=== PATIENT | female | born 1950 | race Caucasian/White ===

== ENCOUNTER → 2016-12-05 15:11 | Outpatient (RCR) | payer MEDICARE, OTHER, SELFPAY | LOC: PULREHAB 10-26 10:19 | PROVIDERS: Visit Provider Nurse Practitioner Family | DX: J44.9 Chronic obstructive pulmonary disease, unspecified (principal) | CPT/HCPCS: G0424 ==

== ENCOUNTER → 2017-03-13 08:57 | Outpatient (POV) | payer MEDICARE, OTHER, SELFPAY | PROVIDERS: Family Provider Internal Medicine Adolescent Medicine; Visit Provider Internal Medicine | DX: Z00.00 Encounter for general adult medical examination without abnormal findings (principal) ==

== ENCOUNTER → 2017-03-15 14:47 | Outpatient (CLI) | payer MEDICARE, OTHER, SELFPAY ==
--- NOTE | 2017-03-15 14:52 | CA_ITS ---
PROCEDURE: 2-D M-mode and color Doppler study INDICATIONS FOR THE TEST: Chest pain COPDX Heart Murmur Tobacco SmokingEX Palpitations Fatigue Syncope Edema Hypertension Diabetes Mellitus Rheumatic Fever SOBXDOEXObesityXHyperlipidemia Family History HD Additional History RESP FAILURE TDS SECONDARY TO COPD AND BODY HABITUS PATIENT INFORMATION HEIGHT: 68 WEIGHT:176 GENDER: Female B/P:140/61 2-D/M-MODE INTERPRETATION: 2-D MEASUREMENTS OBSERVED VALUES IN CMS Right Ventricular Dimension (RVDd) 2.3 Interventricular Septum (Thickness)(IVsd) .8 Left Ventricular Internal Dimensions(LVIDd) 4.4 Left Ventricular Posterior Wall (Thickness)(LVPWd) .7 Aortic Root 3.2 Aortic Cusp Separation 1.0 Left Atrial Dimensions (LAD) 2.3 2D 1. Left atrium is qualitatively mildly enlarged, left ventricle is normal size, there is no concentric left ventricular hypertrophy, visually estimated ejection fraction 55% with no obvious regional wall motion abnormality. 2. The right atrium and right ventricle are qualitatively mildly enlarged with normal contractility. 3. The aortic valve is minimally thickened and fibrosed. 4. The mitral and tricuspid valve leaflets are minimally thickened. 5. The pulmonic valve is poorly visualized. 6. No significant pericardial effusion noted. DOPPLER INTERROGATION: Doppler interrogation of the aortic, mitral and tricuspid valvular presence of mild mitral and tricuspid regurgitation, tricuspid regurgitant jet velocity is insufficient for calculation of the right ventricular systolic pressure, grade 1 diastolic dysfunction seen without tissue Doppler evidence of raised left atrial pressure. CONCLUSION: 1. Mildly enlarged left atrium, normal left ventricular size, visually estimated to fraction 55% with no obvious regional wall motion abnormality, grade 1 diastolic dysfunction seen without tissue Doppler evidence of raised left atrial pressure. 2. Mildly enlarged right ventricle with normal contractility. 3. Mild mitral and tricuspid regurgitation. 4. No significant pericardial effusion noted.
== END ==
PROVIDERS: Family Provider Internal Medicine Adolescent Medicine; PCP Internal Medicine Adolescent Medicine; Visit Provider Internal Medicine
DX: J96.10 Chronic respiratory failure, unspecified whether with hypoxia or hypercapnia (principal); R60.0 Localized edema; R09.89 Other specified symptoms and signs involving the circulatory and respiratory systems
CPT/HCPCS: 93306

== ENCOUNTER → 2017-08-03 09:12 | Outpatient (CLI) | payer MEDICARE, OTHER, SELFPAY ==
--- NOTE | 2017-08-03 09:16 | MM_ITS ---
MM Dig screening mamm BI w/CAD CAD Screening COMPARISON: Digital mammograms 07/08/2008 INDICATION: There is a history of breast cancer in patient's mother and maternal cousin. TECHNIQUE: Standard CC and MLO images were obtained. R2 CAD reviewed. FINDINGS: The breasts are composed primarily of fat with minimal scattered fibroglandular densities in each breast. There is a mole marker right breast. There is no suspicious lesion and no suspicious microcalcifications. There are stable asymmetric density central portion left breast. IMPRESSION: Digoxin breast parenchyma with no suspicious lesion seen BI-RADS Category: 2 Benign Finding(s) RECOMMENDED FOLLOW-UP: 1YR - 1 YEAR FOLLOW-UP (A letter has been sent to the patient regarding results of the study.)
== END ==
PROVIDERS: Family Provider Internal Medicine Adolescent Medicine; PCP Internal Medicine Adolescent Medicine; Visit Provider Internal Medicine Adolescent Medicine
DX: Z12.31 Encounter for screening mammogram for malignant neoplasm of breast (principal)
CPT/HCPCS: 77067

== ENCOUNTER 2017-08-03 09:45 | Outpatient (RCR) | payer MEDICARE, OTHER, SELFPAY ==
--- NOTE | 2017-08-03 10:21 | HMH.PTOPEV ---
PT Outpatient Evaluation Rehab PT Outpatient Evaluation Start: 08/03/17 10:09 Freq: Status: Active Protocol: Document 08/03/17 10:09 CHRISSY (Rec: 08/03/17 10:21 CHRISSY [id number]) Electronically Signed By French Yoon, PT 08/03/17 10:09 Outpatient Therapy Subjective History Subjective History Pt reports h/o chronic mid- back pain for ~10 yrs, with exacerbation of s/s over the lst 12-18 months. Pt reports ' all my pain is caused by the weight of my breasts'. 'When i change positions to take the weight of my breasts off my back, the pain is immediately cut in half.' Pt reports fibromylagia of the shoulders, and COPD, which also further complicates breathing with the aforementioned breast size issues. Pt reports no radicular s/s only localized mid-back and lower cervical and upper lumbar back pain. Chief Complaint Pain Stiff Clicks Weakness Symptom Type Ache Throb Sharp Dull Stabbing Symptoms Relieved By Rest/Positioning Symptoms Aggravated By Sitting Standing Bending/Stooping Physical Activity Walking Lifting Prior Functional Limitations Reaching Lifting Housework Standing Sitting Current Functional Limitations Reaching Lifting Housework Standing Sitting Bending/Stooping Symptom Description Constant but Variable Level of pain today (0-10) 10 Pain scale - at its best (0-10) 4 Pain scale - at its worst (0-10) 10 Cervical Eval Palpation Cervical Muscles R Cervical Paraspinal L Cervical Paraspinal R CT Junction
== END 2017-08-03 09:46 | disposition home or self-care (01) ==
LOC: PT 09:45
PROVIDERS: Family Provider Internal Medicine Adolescent Medicine; PCP Internal Medicine Adolescent Medicine; Visit Provider Internal Medicine Adolescent Medicine
DX: M54.6 Pain in thoracic spine (principal); M40.209 Unspecified kyphosis, site unspecified
CPT/HCPCS: 97010; 97014; 97035; 97163; G0283

== ENCOUNTER → 2017-08-30 12:49 | Outpatient (CLI) | payer MEDICARE, OTHER, SELFPAY ==
[2017-08-30 13:19] VITALS: PULSE 69
[2017-08-30 13:45] VITALS: BP 116/80; PULSE 75; RESP 16; O2SAT 92
[2017-08-30 14:00] VITALS: BP 113/55; PULSE 63; RESP 24; O2SAT 92
== END ==
PROVIDERS: Family Provider Internal Medicine Adolescent Medicine; PCP Internal Medicine Adolescent Medicine; Visit Provider Internal Medicine
DX: R06.02 Shortness of breath (principal); J44.9 Chronic obstructive pulmonary disease, unspecified
CPT/HCPCS: 94060; 94618; 94640

== ENCOUNTER → 2017-09-03 09:08 | Outpatient (CLI) | payer MEDICARE, OTHER, SELFPAY ==
--- NOTE | 2017-09-03 09:09 | CT_ITS ---
CT abdomen pelvis wo/w con CLINICAL INDICATION: Sigmoid stricture, possible mass ITS.REASON: stricture sigmoid ORDERING PHYSICIAN: Rigo Rao MD PATIENT AGE: 67 years COMPARISON: 03/22/2015 TECHNIQUE: Axial images obtained without and with contrast with sagittal and coronal reformats. All CT scans at the facility use one or more dose reduction, viz: automated exposure control; ma/kV adjustment per patient size (including targeted exams where dose is matched to indication; i.e. head); or iterative reconstruction technique. PROCEDURE: Oral Contrast: 75 mL's of Isovue-370 IV Contrast: Redicat. FINDINGS: The liver, spleen, adrenal glands, pancreas, and kidneys have an unremarkable appearance. No renal or ureteral calculi evident. There is good oral contrast opacification of the large bowel. No evidence of appendicitis or diverticulitis. No intestinal obstruction or free air. There is diverticulosis of the descending and sigmoid colon. There is thickening of the sigmoid colon in the left lower quadrant in the area of the stricture that was seen on the recent barium enema. This did have a similar appearance on 03/22/2015. No obvious concentric mass or apple core lesion evident. No pelvic adenopathy. Small cystic structures present in the left pelvic area measuring 2.8 x 1.6 cm suggesting small left ovarian cyst. There are postsurgical changes of the anterior abdominal wall with some thinning of the abdominal wall and minimal eventration but no jamilah hernia. Minimal ectasia of the lower abdominal aorta. Degenerative disc disease lumbar spine IMPRESSION: Colonic diverticulosis with an area of mucosal thickening of the sigmoid colon measuring 4.6 cm in length corresponding to the area of stricture seen on the barium enema. This had a similar appearance on 03/22/2015 and may represent an area of chronic colitis/inflammation. Neoplasm is not totally excluded.
[2017-09-03 10:15] LABS: Blood Urea Nitrogen 13 mg/dL (7-18); Creatinine,Serum 0.65 mg/dL (0.55-1.02); Estimated Glomerular Filt Rate 91 ml/min (>60); GFR (African American) 111 ML/MIN (>60)
--- NOTE | 2017-09-03 10:35 | CT_ITS ---
CT chest wo con HISTORY: Follow-up lung nodule, sigmoid stricture ITS.REASON: LUNG NODULE ORDERING PHYSICIAN: Rigo Rao MD PATIENT AGE: 67 years COMPARISON: 02/14/2017 Technique: Axial images obtained. Sagittal and coronal reformatted images are also generated and reviewed. All CT scans at the facility use one or more dose reduction, viz: automated exposure control; ma/kV adjustment per patient size (including targeted exams where dose is matched to indication; i.e. head); or iterative reconstruction technique. FINDINGS: No mediastinal or hilar mass or adenopathy. There are coronary artery calcifications. Normal heart size without evidence of pericardial effusion. There are centrilobular emphysematous changes with mild scarring in the apices. Small parenchymal opacity is present in the inferior aspect of the right upper lobe with central lucency which is stable. Calcified granuloma in the right middle lobe. Calcified nodes present in the right hilum. There is an 8 x 6 mm nodule in the right upper lobe posteriorly. The margins are irregular nodule does not appear significantly changed from 02/14/2017 but is slightly larger than when compared to the date 10-05-16- exam. There are chronic changes in the right middle lobe and lingula. No lobar consolidation or collapse. No effusions. IMPRESSION: 1. Stable 8 mm nodule in the right upper lobe compared to 02/14/2017. The nodule is slightly larger than when compared 10/05/2016. Therefore, continued follow-up is recommended. 2. Centrilobular emphysema with old granulomatous disease. 3. Coronary artery disease
[2017-09-04 10:52] LABS: CEA 3.9 ng/mL (0.0-4.7)
== END ==
PROVIDERS: Family Provider Internal Medicine Adolescent Medicine; PCP Internal Medicine Adolescent Medicine; Visit Provider Surgery
DX: Z85.41 Personal history of malignant neoplasm of cervix uteri (principal); K56.699 Other intestinal obstruction unspecified as to partial versus complete obstruction; R91.1 Solitary pulmonary nodule; Z08 Encounter for follow-up examination after completed treatment for malignant neoplasm
CPT/HCPCS: 36415; 71250; 74170; 74178; 82378; 82565; 84520; Q9967

== ENCOUNTER → 2017-09-11 09:09 | Outpatient (POV) | payer MEDICARE, OTHER, SELFPAY | PROVIDERS: Family Provider Internal Medicine Adolescent Medicine; PCP Internal Medicine Adolescent Medicine; Visit Provider Internal Medicine | DX: Z00.00 Encounter for general adult medical examination without abnormal findings (principal) ==

== ENCOUNTER → 2017-10-01 14:36 | Outpatient (POV) | payer MEDICARE, OTHER, SELFPAY | PROVIDERS: Family Provider Internal Medicine Adolescent Medicine; PCP Internal Medicine Adolescent Medicine; Visit Provider Nurse Practitioner Acute Care | DX: Z00.00 Encounter for general adult medical examination without abnormal findings (principal) ==

== ENCOUNTER → 2017-10-17 14:30 | Outpatient (POV) | payer MEDICARE, OTHER, SELFPAY | PROVIDERS: Family Provider Internal Medicine Adolescent Medicine; PCP Internal Medicine Adolescent Medicine | DX: Z00.00 Encounter for general adult medical examination without abnormal findings (principal) ==

== ENCOUNTER → 2018-01-08 09:48 | Outpatient (POV) | payer MEDICARE, OTHER, SELFPAY | PROVIDERS: Visit Provider Dermatology | DX: Z00.00 Encounter for general adult medical examination without abnormal findings (principal) ==

== ENCOUNTER → 2018-01-15 15:18 | Outpatient (CLI) | payer MEDICARE, OTHER, SELFPAY ==
[2018-01-15 17:06] LABS: Alanine Aminotransferase 23 U/L (12-78); Albumin Level 3.3 gm/dL (3.4-5.0); Alkaline Phosphatase 58 U/L (46-116); Anion Gap 11.3 mEq/L (5-15); Aspartate Amino Transferase 19 U/L (15-37); Bilirubin,Total 0.5 mg/dL (0.2-1.0); Blood Urea Nitrogen 11 mg/dL (7-18); Calcium 8.9 mg/dL (8.5-10.1); Carbon Dioxide 30 mmol/L (21.0-32.0); Chloride 103 mmol/L (98-107); Creatine Kinase 101 U/L (26-192); Creatinine,Serum 0.69 mg/dL (0.55-1.02); Estimated Glomerular Filt Rate 85 ml/min (>60); GFR (African American) 103 ML/MIN (>60); Globulin 3.3 gm/dl (1.3-3.2); Glucose 89 mg/dL (74-106); Potassium 4.3 mmoL/L (3.5-5.1); Sodium 140 mmol/L (136-145); T4 (Thyroxine) 11.1 ug/dl (4.7-13.3); Thyroid Stimulating Hormone 0.08 uIU/ml (0.358-3.740); Total Protein,Serum 6.6 gm/dL (6.4-8.2); Triiodothryronine (T3) Uptake 35 % (31-39)
== END ==
PROVIDERS: Visit Provider Specialist
DX: R25.1 Tremor, unspecified (principal); R25.2 Cramp and spasm
CPT/HCPCS: 36415; 80053; 82085; 82550; 83735; 84436; 84443; 84479

== ENCOUNTER → 2018-01-18 12:54 | Outpatient (CLI) | payer MEDICARE, OTHER, SELFPAY ==
--- NOTE | 2018-01-18 12:56 | MR_ITS ---
MR head/brain wo con HISTORY: Tremors, unsteady gait ITS.REASON: gait disturbance, memory loss, tremor ORDERING PHYSICIAN: Viji Anthony MD PATIENT AGE: 68 years Comparison: None TECHNIQUE: Standard multiplanar multiecho sequences are performed without contrast. FINDINGS: No midline shift, mass effect, intracranial hemorrhage, or hydrocephalus is evident. No evidence of acute infarct. Scattered periventricular and subcortical T2 white matter hyperintensities are present consistent with ischemic gliotic change from microvascular disease. The cerebellopontine angles, cerebellum, and brainstem are unremarkable. There is a minimal amount fluid in left mastoid sinus. No sinus air-fluid levels. The pituitary, optic chiasm, and craniocervical junction are unremarkable. IMPRESSION: 1. No acute intracranial findings. 2. Minimal fluid in left mastoid 3. Nonspecific T2 white matter hyperintensities consistent with ischemic gliotic change from microvascular disease
== END ==
PROVIDERS: PCP Internal Medicine Adolescent Medicine; Visit Provider Specialist
DX: G47.33 Obstructive sleep apnea (adult) (pediatric) (principal); R25.1 Tremor, unspecified; R25.2 Cramp and spasm; R26.9 Unspecified abnormalities of gait and mobility; R41.3 Other amnesia
CPT/HCPCS: 70551

== ENCOUNTER → 2018-02-18 13:32 | Outpatient (POV) | payer MEDICARE, OTHER, SELFPAY | PROVIDERS: Visit Provider Specialist | DX: R25.2 Cramp and spasm (principal); R25.1 Tremor, unspecified | CPT/HCPCS: 95886; 95910 ==

== ENCOUNTER → 2018-02-20 13:18 | Outpatient (POV) | payer MEDICARE, OTHER, SELFPAY | DX: Z00.00 Encounter for general adult medical examination without abnormal findings (principal) ==

== ENCOUNTER → 2018-03-12 16:13 | Outpatient (POV) | payer MEDICARE, OTHER, SELFPAY | PROVIDERS: Visit Provider Internal Medicine | DX: Z00.00 Encounter for general adult medical examination without abnormal findings (principal) ==

== ENCOUNTER → 2018-05-22 10:41 | Outpatient (CLI) | payer MEDICARE, OTHER, SELFPAY ==
--- NOTE | 2018-05-22 10:49 | CT_ITS ---
CT abdomen wo/w con CLINICAL INDICATION: Hernia, pain in the lower umbilical area with swelling ITS.REASON: HERNIA ORDERING PHYSICIAN: Fernando Fernandez MD PATIENT AGE: 68 years COMPARISON: 09/03/2017 TECHNIQUE: Axial images are performed without and with contrast. Axial images obtained with sagittal and coronal reformats. All CT scans at the facility use one or more dose reduction, viz: automated exposure control, ma/kV adjustment per patient size (including targeted exams where dose is matched to indication, i.e. head), or iterative reconstruction technique. PROCEDURE: Oral Contrast: Redicat IV Contrast: 75 mL's Optiray 350. FINDINGS: Coronary artery calcifications are present. There is a calcified granuloma in the left lower lobe.. An 11 mm noncalcified nodule present in the left lung base anteromedially and could be due to a small lymph node in the pericardial region slightly more prominent when compared to the previous exam. The liver, spleen, and left adrenal gland and pancreas have an unremarkable appearance. Prior cholecystectomy. There is a isodense nodule in the right adrenal gland at 12 mm consistent with an adenoma measuring -7 Hounsfield units. No renal or ureteral calculi are evident. No renal mass. There is mild dilatation of the infrarenal abdominal aorta measuring up to 2.4 cm. The appendix is not clearly delineated. There is a given history of prior appendectomy. There is diffuse colonic diverticulosis of the descending and sigmoid colon with mild diffuse thickening of the descending and sigmoid colon suggesting colitis. There is mild thickening and enhancement of the urinary bladder also suggesting cystitis. No pelvic mass or abnormal fluid collection is evident. There are surgical clips in the pelvis. There is diastases of the central abdominal wall but no jamilah herniation. No acute bony findings. IMPRESSION: 1. Mild diffuse thickening of the descending and proximal to mid sigmoid colon consistent with colitis. There is diverticulosis as well but no focal areas of diverticulitis demonstrated 2. Mild thickening and enhancement of the wall the urinary bladder consistent with cystitis. 3. Diastases of the abdominal wall but no jamilah herniation and no significant change from 09/03/2017 regarding this finding 4. Mildly prominent left pericardial lymph node slightly increased in size nonspecific with other nonacute findings as described above
== END ==
PROVIDERS: PCP Internal Medicine Adolescent Medicine; Visit Provider Internal Medicine Adolescent Medicine
DX: K46.9 Unspecified abdominal hernia without obstruction or gangrene (principal)
CPT/HCPCS: 74170; 74178; Q9967

== ENCOUNTER → 2018-08-12 12:57 | Outpatient (CLI) | payer MEDICARE, OTHER, SELFPAY ==
--- NOTE | 2018-08-12 13:00 | CT_ITS ---
CT chest wo con HISTORY: Follow-up pulmonary nodule ITS.REASON: PULMONARY NODULE ORDERING PHYSICIAN: Brian Gil MD PATIENT AGE: 68 years COMPARISON: 09/03/2017, 02/14/2017 Technique: Axial images obtained. Sagittal, and coronal reformatted images are also generated and reviewed. All CT scans at the facility use one or more dose reduction, viz: automated exposure control, ma/kV adjustment per patient size (including targeted exams where dose is matched to indication, i.e. head), or iterative reconstruction technique. FINDINGS: No mediastinal or hilar adenopathy is evident. There are some small mediastinal lymph nodes present stable. Coronary artery calcifications are present. No evidence of pericardial effusion. There are centrilobular emphysematous changes with scattered areas of fibrosis. The previously noted stable nodule in the right upper lobe has increased in size since the most recent exam measuring 1.4 x 1.3 cm previously measuring 7 mm. The margins are spiculated. This is suspicious for neoplasm. This is not safely amenable to percutaneous CT directed biopsy. This lesion is in the posterior segment of the right upper lobe and may be accessible for biopsy by bronchoscopy. There is calcified granuloma in the left lower lobe. No effusions. No infiltrates. No other significant abnormalities are apparent.. Upper abdominal images are unremarkable. No acute bony anomalies. No bony destructive process evident. IMPRESSION: 1. Enlarging right upper lobe nodule suspicious for malignancy 2. Centrilobular emphysema. 3. Coronary artery disease
== END ==
PROVIDERS: PCP Internal Medicine Adolescent Medicine; Visit Provider Internal Medicine
DX: R91.1 Solitary pulmonary nodule (principal)
CPT/HCPCS: 71250

== ENCOUNTER → 2018-10-30 12:36 | Outpatient (POV) | payer MEDICARE, OTHER, SELFPAY | DX: Z00.00 Encounter for general adult medical examination without abnormal findings (principal) ==

== ENCOUNTER → 2018-11-19 12:59 | Outpatient (CLI) | payer MEDICARE, OTHER, SELFPAY ==
[2018-11-19 14:15] VITALS: PULSE 60; PULSE 64
--- NOTE | 2018-11-19 14:55 | CT_ITS ---
PROCEDURE: CT CHEST WO CON CLINICAL INDICATION: PULMONARY NODULE Follow-up pulmonary nodule COMPARISON: CHESTWO CT chest wo con from 09/03/[address] chest wo con from 08/12/2018 TECHNIQUE: Axial images obtained with sagittal and coronal reformats. All CT scans at the facility use one or more dose reduction, viz: automated exposure control, ma/kV adjustment per patient size (including targeted exams where dose is matched to indication, i.e. head), or iterative reconstruction technique. FINDINGS: There is extensive coronary artery calcification. No mediastinal or hilar mass or adenopathy. Are a few mediastinal lymph nodes unchanged. There is COPD with centrilobular emphysema with hyperinflation. There is a spiculated mass in the posterior aspect of the right upper lobe once again noted. The mass measures 1.7 x 1.6 cm and is suspicious for malignancy slightly larger compared to the previous exam previously 1.4 x 1.4 cm. The There are few scattered calcified granulomas. No effusions or infiltrates. There is some nodularity noted in the left lung base anteriorly which may be due to some lingular scarring not significantly changed. A small nodes within the pericardial fat is also consideration. No acute bony anomaly. Upper abdominal images show unremarkable adrenal glands. The visualized portion of the liver is unremarkable. The inferior aspect of the liver is not imaged. IMPRESSION: 1. Spiculated right upper lobe mass is once again noted and does appear slightly larger compatible with lung cancer. 2. COPD/centrilobular emphysema 3. Coronary artery disease Dictated by: Gianluca Self MD 11/22/2018 05:11 Electronically signed by Gianluca Self MD in [place] 11/22/2018 05:11
== END ==
PROVIDERS: PCP Internal Medicine Adolescent Medicine; Visit Provider Internal Medicine
DX: R91.1 Solitary pulmonary nodule (principal); J44.9 Chronic obstructive pulmonary disease, unspecified; J96.10 Chronic respiratory failure, unspecified whether with hypoxia or hypercapnia
CPT/HCPCS: 71250; 94060; 94640; 94727; 94729

== ENCOUNTER → 2018-12-10 15:43 | Outpatient (POV) | payer MEDICARE, OTHER, SELFPAY | PROVIDERS: Visit Provider Internal Medicine | DX: Z00.00 Encounter for general adult medical examination without abnormal findings (principal) ==

== ENCOUNTER → 2018-12-18 12:42 | Outpatient (CLI) | payer MEDICARE, OTHER, SELFPAY ==
--- NOTE | 2018-12-18 13:02 | CA_ITS ---
APPROVED REPORT Left Lower Extremity Venous Study for DVT. Stock Broker: Amarilis Martin RVT Indications Lower Extremity Pain: Lower Extremity Edema: Left LLE swelling x several yrs. Vein Imaging CFV (L): compressive, spontaneous, phasic, augmentation FEM (L): compressive, spontaneous, phasic, augmentation POP (L): compressive, spontaneous, phasic, augmentation PTV (L): Compressible GSV (L): Compressible Peroneals (L):Compressible GAS (L): Compressible Findings Study is negative for DVT of the left lower extremity. Study is negative for SVT of the left lower extremity. Conclusion Study is negative for DVT of the left lower extremity. Study is negative for SVT of the left lower extremity. Electronically signed by : Gianluca Self MD 12/19/2018 19:08:38
[2018-12-18 15:03] LABS: D-Dimer 232 ng/mL (0-400)
== END ==
PROVIDERS: PCP Internal Medicine Adolescent Medicine; Visit Provider Internal Medicine
DX: R60.0 Localized edema (principal)
CPT/HCPCS: 36415; 85378; 93971

== ENCOUNTER → 2019-01-01 14:25 | Outpatient (CLI) | payer MEDICARE, OTHER, SELFPAY ==
[2019-01-01 14:27] LABS: Microscopic, Urine URINE MICROSCOPIC (MICROSCOPIC)
[2019-01-01 14:47] LABS: Basophils # 0.1 K/mm3 (0-0.2); Basophils % 0.8 % (0.1-2.0); Eosinophils # 0.4 K/mm3 (0.0-0.4); Eosinophils % 5.9 % (0.1-12.0); Hematocrit 40.3 % (37.0-47.0); Hemoglobin 12.8 g/dL (12.2-16.2); Lymphocytes # 2.3 K/mm3 (0.7-4.5); Lymphocytes % 32.8 % (10-50); Mean Corpuscular HGB Conc 31.7 g/dL (31.8-35.4); Mean Platelet Volume 8.2 fl (7.4-10.4); Monocytes # 0.3 K/mm3 (0.1-1.0); Monocytes % 4.7 % (1.7-9.3); Neutrophils # 3.9 K/mm3 (1.8-7.8); Neutrophils % 55.9 % (37.0-80.0); Platelet Count 211 K/mm3 (142-424); Red Blood Count 4.11 M/mm3 (4.20-5.40); Red Cell Distribution Width 13.7 % (11.5-17.5)
[2019-01-01 15:16] LABS: Appearance,Urine CLEAR (Clear); Bilirubin,Urine Negative (Negative); Blood, Urine 1+ (Negative); Color,Urine YELLOW (Yellow); Glucose,Urine (UA) Negative (Negative); Ketones,Urine Negative (Negative); Leukocyte Esterase,Urine Negative (Negative); Nitrate,Urine Negative (Negative); PH,Urine 5.5 (5.0-8.5); Protein,Urine Negative (Negative); Specific Gravity, Urine 1.025 (1.005-1.030); Urobilinogen,Urine 0.2 EU/dl (0.2)
[2019-01-01 15:21] LABS: Bacteria,Urine Trace /lpf; RBC,Urine Occasional #/hpf (0-3); Squamous Epithelial Cell,Urine Occasional #/hpf (0-5); WBC,Urine Occasional #/hpf (0-3)
[2019-01-01 16:25] LABS: Alanine Aminotransferase 23 U/L (12-78); Albumin Level 3.4 gm/dL (3.4-5.0); Alkaline Phosphatase 66 U/L (46-116); Anion Gap 9.2 mEq/L (5-15); Aspartate Amino Transferase 20 U/L (15-37); Bilirubin,Total 0.5 mg/dL (0.2-1.0); Blood Urea Nitrogen 12 mg/dL (7-18); Calcium 8.7 mg/dL (8.5-10.1); Carbon Dioxide 30 mmol/L (21.0-32.0); Chloride 104 mmol/L (98-107); Creatinine,Serum 0.73 mg/dL (0.55-1.02); Estimated Glomerular Filt Rate 80 ml/min (>60); GFR (African American) 97 ML/MIN (>60); Globulin 3.3 gm/dl (1.3-3.2); Glucose 87 mg/dL (74-106); Potassium 4.2 mmoL/L (3.5-5.1); Sodium 139 mmol/L (136-145); Total Protein,Serum 6.7 gm/dL (6.4-8.2)
== END ==
LOC: LAB.DROPOF 14:26 → LAB 14:27
PROVIDERS: Visit Provider Surgery
DX: R10.9 Unspecified abdominal pain (principal)
CPT/HCPCS: 36415; 80053; 81001; 85025

== ENCOUNTER → 2019-01-06 08:00 | Outpatient (CLI) | payer MEDICARE, OTHER, SELFPAY ==
--- NOTE | 2019-01-06 08:02 | US_ITS ---
PROCEDURE: US ABDOMEN COMPLETE CLINICAL INDICATION: focal abdominal pain COMPARISON: ABDPELWW CT abdomen pelvis wo/w con from 05/22/2018 CT CHEST WO CON from 11/19/2018 FINDINGS: PANCREAS: Poorly demonstrated due to body habitus and overlying bowel gas. LIVER: No focal liver lesions demonstrated. Homogeneous echogenicity. No intrahepatic biliary ductal dilatation evident. There is appropriate direction of blood flow within a non dilated portal vein RIGHT KIDNEY: Unremarkable. Normal size and echogenicity. No hydronephrosis LEFT KIDNEY: Unremarkable. Normal size and echogenicity. No hydronephrosis GALLBLADDER: Status post cholecystectomy. Common bile duct is normal at 3 mm. AORTA: Minimal ectasia of the mid abdominal aorta at 2.4 cm. SPLEEN: Not well delineated. Grossly unremarkable ASCITES: None demonstrated. IMPRESSION: 1. Somewhat limited study with poor visualization of the pancreas and spleen. 2. Mild ectasia of the mid abdominal aorta at 2 cm. 3. Status post cholecystectomy 4. No acute finding Dictated by: Gianluca Self MD 01/06/2019 17:07 Electronically signed by Gianluca Self MD in [place] 01/06/2019 17:07
== END ==
PROVIDERS: PCP Internal Medicine Adolescent Medicine; Visit Provider Surgery
DX: R10.9 Unspecified abdominal pain (principal)
CPT/HCPCS: 76700

== ENCOUNTER → 2019-01-16 10:01 | Outpatient (CLI) | payer MEDICARE, OTHER, SELFPAY ==
--- NOTE | 2019-01-16 10:03 | MM_ITS ---
PROCEDURE: MM DIG SCREENING MAMM BI W/CAD CLINICAL INDICATION: screening There is a history of breast cancer patient's mother and maternal cousin. There have been previous biopsies on each breast for benign disease. COMPARISON: SCREENING MAMMO DIGITAL W/ CAD from 07/08/2008 DIAG MAMMO UNI-LAT W/O CAD from 09/02/2008 [facility] MM Dig screening mamm BI w/CAD from 08/03/2017 TECHNIQUE: Standard CC and MLO images were obtained. R2 CAD reviewed. FINDINGS: Scattered fibroglandular densities are seen throughout both breasts. There is a possible area of architectural distortion or increased glandular elements central portion left breast representing a change from the previous year's exam. Would recommend patient return for spot compression views and ultrasound may be necessary as well. There are no suspicious microcalcifications. IMPRESSION: Fibrofatty parenchyma with possible developing glandular densities versus architectural distortion left breast BI-RAD Category: 0 Need Additional Imaging Evaluation FOLLOW-UP: IMM Immediate Follow-up Recommended (A letter has been sent to the patient regarding results of the study.) Dictated by: Dr. Balwinder Schulz MD 01/18/2019 13:[address] Balwinder Schulz MD in [place] 01/18/2019 13:46
== END ==
PROVIDERS: Visit Provider Internal Medicine Adolescent Medicine
DX: Z12.31 Encounter for screening mammogram for malignant neoplasm of breast (principal)
CPT/HCPCS: 77067

== ENCOUNTER → 2019-03-03 14:05 | Outpatient (CLI) | payer MEDICARE, OTHER, SELFPAY ==
--- NOTE | 2019-03-03 | MM_ITS ---
PROCEDURE: MM DIG MAMM DX UNILAT LT CAD CLINICAL INDICATION: ABNORMAL MAMMOGRAM I did not have the history of previous breast reduction surgery at the time of the reading of the mammogram 01/16/2019 COMPARISON: MM DIG SCREENING MAMM BI W/CAD from 01/16/2019 TECHNIQUE: Spot-compression MLO and CC views were obtained along with 90 degree lateral view FINDINGS: The ill-defined somewhat streaky irregular opacities are again seen in the central portion of the breast and they are not significantly changed on the spot compression views and 90 degree lateral view. This finding would be more compatible with postsurgical scarring rather than a developing new lesion. IMPRESSION: Probable postsurgical scarring from previous breast reduction surgery however in view of family history of breast cancer suggest patient return for follow-up left mammogram and ultrasound left breast in 3 4 months for continuing evaluation BI-RAD Category: 2 Benign Finding(s) FOLLOW-UP: 3M 3 Month Follow-up (A letter has been sent to the patient regarding results of the study.) Dictated by: Dr. Balwinder Schulz MD 03/03/2019 15:[address] Blawinder Schulz MD in [place] 03/03/2019 15:21
--- NOTE | 2019-03-03 | US_ITS ---
PROCEDURE: US BREAST LT COMPLETE CLINICAL INDICATION: ABNORMAL MAMMOGRAM I did not have the history of recent breast reduction surgery at the time of the reading of the mammogram in January of this year. The new finding of scattered irregular densities and otherwise fatty breast would certainly be consistent with postsurgical scarring. COMPARISON: [facility] MM Dig screening mamm BI w/CAD from 08/03/2017 MM DIG SCREENING MAMM BI W/CAD from 01/16/2019 MM DIG MAMM DX UNILAT LT CAD from 03/03/2019 FINDINGS: The areas of irregular somewhat ill-defined densities and or architectural distortion are basically unchanged on the spot compression views performed the same date. Ultrasound images show a somewhat irregular area of decreased echogenicity 4 o'clock position near the nipple with some acoustic shadowing beneath. In addition there is a area suggesting architectural distortion at the 1 o'clock position near the nipple. No definite cystic or solid masses identified. The ultrasound findings combined with the mammogram findings suggest that postsurgical scarring is most likely but in view of the family history of breast cancer recommend the patient return for follow-up left mammogram and ultrasound in 3-4 months for continuing evaluation. IMPRESSION: Problem solving views and ultrasound findings most consistent with postsurgical changes and recommend follow-up left mammogram and ultrasound in 3-4 months BI-RADS category 3 Dictated by: Dr. Balwinder Schulz MD 03/03/2019 15:[address] Balwinder Schulz MD in [place] 03/03/2019 15:17
== END ==
PROVIDERS: PCP Internal Medicine Adolescent Medicine; Visit Provider Internal Medicine Adolescent Medicine
DX: R92.8 Other abnormal and inconclusive findings on diagnostic imaging of breast (principal)
CPT/HCPCS: 76641; 77065

== ENCOUNTER → 2019-03-19 13:21 | Outpatient (POV) | payer MEDICARE, OTHER, SELFPAY | DX: Z00.00 Encounter for general adult medical examination without abnormal findings (principal) ==

== ENCOUNTER → 2019-08-19 14:16 | Outpatient (CLI) | payer MEDICARE, OTHER, SELFPAY ==
--- NOTE | 2019-08-19 | US_ITS ---
PROCEDURE: MM DIG MAMM DX UNILAT LT CAD Digital Breast Tomosynthesis Included Left breast ultrasound complete with axilla CLINICAL INDICATION: 3 MOS FU Follow-up asymmetric density COMPARISON: [facility] MM Dig screening mamm BI w/CAD from 08/03/2017 MM DIG SCREENING MAMM BI W/CAD from 01/16/2019 MM DIG MAMM DX UNILAT LT CAD from 03/03/2019 US BREAST LT COMPLETE from 03/03/2019 US BREAST LT COMPLETE from 08/19/2019 TECHNIQUE: Standard images with spot compression views and tomograms with left breast ultrasound FINDINGS: Average fibroglandular tissue. Continued asymmetric density in this deep central portion of the left breast not significantly changed without discrete mass and may be due to scarring Left breast ultrasound: 3 mm hypoechoic nodule at 12 o'clock. 6 mm hypoechoic nodule 1 o'clock slightly smaller and bilobed. 13 mm hypoechoic area at 4 o'clock similar to the previous exam possibly due to an area of scarring without mammographic correlate. Probably benign. Recommend continued six-month mammographic and sonographic follow-up. No new nodules evident. IMPRESSION: BI-RAD Category: 3 Probably Benign Finding Short Term Follow-up FOLLOW-UP: 6M 6Month Follow-up (A letter has been sent to the patient regarding results of the study.) Dictated by: Gianluca Self MD 08/22/2019 10:27 Electronically signed by Gianluca Self MD in [place] 08/22/2019 10:27
== END ==
PROVIDERS: PCP Internal Medicine Adolescent Medicine; Visit Provider Internal Medicine Adolescent Medicine
DX: R92.8 Other abnormal and inconclusive findings on diagnostic imaging of breast (principal)
CPT/HCPCS: 76641; 77061; 77065; G0279

== ENCOUNTER → 2020-02-20 14:17 | Outpatient (CLI) | payer MEDICARE, OTHER, SELFPAY ==
--- NOTE | 2020-02-20 14:20 | MM_ITS ---
PROCEDURE: MM DIG MAMM BI DX W/CAD Digital Breast Tomosynthesis Included CLINICAL INDICATION: ABN MAMM OF RT BREAST Six-month follow-up mammogram left breast and screening mammogram right breast COMPARISON: MG MM DIG SCREENING MAMM BI W/CAD from 01/16/2019 MG MM DIG MAMM DX UNILAT LT CAD from 03/03/2019 US US BREAST LT COMPLETE from 08/19/2019 MG MM DIG MAMM DX UNILAT LT CAD from 08/19/2019 TECHNIQUE: Standard CC and MLO images and 3D Tomosynthesis was obtained. Additional spot compression views were obtained of both breasts. R2 CAD reviewed. FINDINGS: Breasts are composed primarily of with scattered fibroglandular densities seen throughout each breast. There is asymmetric glandular elements deep in the right breast near the chest chest wall and spot compression view shows a likely is asymmetric glandular elements with no suspicious characteristics. [place] images confirm no suspicious lesions. There is stable asymmetric glandular elements central portion left breast. Spot compression views and cuauhtemoc images and magnification show small area of architectural distortion with associated microcalcifications. The microcalcifications were not definitely seen on the recent left mammogram 08/19/2019.. Ultrasound performed the same date shows an area of architectural distortion with combined cystic and solid components. Recommend patient be scheduled for biopsy of this lesion which could likely be performed the ultrasound guidance. IMPRESSION: Fibrofatty parenchyma somewhat suspicious asymmetric lesion with possible architectural distortion 3 to 4 o'clock position left breast with abnormal ultrasound confirmation BI-RAD Category: 4 Suspicious Abnormality - Biopsy Considered FOLLOW-UP: BIO Biopsy Recommended (A letter has been sent to the patient regarding results of the study.) Dictated by: Dr. Balwinder Schulz MD 02/25/2020 11:23 Dr. Balwinder Schulz MD in [place] 02/25/2020 11:23
== END ==
PROVIDERS: PCP Internal Medicine Adolescent Medicine; Visit Provider Internal Medicine Adolescent Medicine
DX: R92.8 Other abnormal and inconclusive findings on diagnostic imaging of breast (principal)
CPT/HCPCS: 76641; 77062; 77066; G0279

== ENCOUNTER → 2020-03-17 09:56 | Outpatient (CLI) | payer MEDICARE, OTHER, SELFPAY ==
--- NOTE | 2020-03-17 | MM_ITS ---
PROCEDURE: US BIOPSY BREAST LT CLINICAL INDICATION: ABN MAMM Left breast lesion COMPARISON: MG MM DIG MAMM DX UNILAT LT CAD from 08/19/2019 MG MM DIG MAMM BI DX W/CAD from 02/20/2020 US US BREAST LT COMPLETE from 02/20/2020 MG MM CLIP PLACEMENT LT from 03/17/2020 FINDINGS: Following obtaining informed consent and time-out procedure under aseptic conditions and local anesthesia with 1 percent buffered lidocaine and deeper anesthesia with lidocaine mixed with epinephrine, under ultrasound guidance skin tay was performed and mammotome needle inserted. Multiple mammotome biopsies are obtained of the area decreased echogenicity and posterior shadowing at the 4 o'clock region of the left breast. A non ferromagnetic clip was then placed. Patient tolerated the procedure well without evidence of immediate complication. The tissue was sent for specimen radiograph as there did appear to be some calcifications in this region on the mammogram and it was unknown whether the area of calcification represented the area of abnormal echogenicity. Calcifications were present within the tissue specimen. Post biopsy mammogram/clip placement: Biopsy clip and postsurgical changes are present in the 4 o'clock region of the left breast. Some of the calcifications were removed and some remain. Pathology: Changes consistent with sequela of fat necrosis with dystrophic calcification within resolving inflammatory infiltrate. No atypia or malignancy. IMPRESSION: Uneventful ultrasound-guided biopsy of the left breast showing benign findings. Suggest 6 month follow-up per routine protocol. Dictated by: Gianluca Self MD 03/19/2020 14:35 Gianluca Self MD in [place] 03/19/2020 14:35
== END ==
PROVIDERS: PCP Internal Medicine Adolescent Medicine; Visit Provider Internal Medicine Adolescent Medicine
DX: R92.8 Other abnormal and inconclusive findings on diagnostic imaging of breast (principal); N63.23 Unspecified lump in the left breast, lower outer quadrant
CPT/HCPCS: 19083; 76098; 77065; 88305; C2618

== ENCOUNTER → 2020-05-10 13:03 | Outpatient (CLI) | payer MEDICARE, OTHER, SELFPAY ==
--- NOTE | 2020-05-10 13:19 | XR_ITS ---
PROCEDURE: XR CHEST 2V CLINICAL HISTORY: LUNG TRANSPLANT FAILURE, OTHER FATIGUE COMPARISON: CR CXR1 CHEST-PORTABLE from 03/22/2015 CR CXR CHEST(2 VIEWS-NOT PORTABLE) from 08/11/[address] CHEST WO CON from 11/19/2018 FINDINGS: The cardiomediastinal silhouette and pulmonary vascularity are within normal limits. Emphysema with COPD. There is a patchy area of parenchymal opacification in the right mid upper lung zone laterally and may be due to an area of patchy infiltrate or scarring. The remaining lungs are clear. No acute bony abnormalities. IMPRESSION: Emphysema/COPD changes with patchy area of atelectasis infiltrate or scarring in the right upper lung zone laterally Dictated by: Gianluca Self MD 05/10/2020 14:30 Gianluca Self MD in [place] 05/10/2020 14:30
[2020-05-10 13:29] LABS: Basophils # 0.1 K/mm3 (0-0.2); Basophils % 0.7 % (0.1-2.0); Eosinophils # 0.3 K/mm3 (0.0-0.4); Eosinophils % 3.7 % (0.1-12.0); Hematocrit 42.4 % (37.0-47.0); Hemoglobin 13.1 g/dL (12.2-16.2); Lymphocytes # 1.9 K/mm3 (0.7-4.5); Lymphocytes % 27.5 % (10-50); Mean Corpuscular Hemoglobin 30.3 pg (27.0-31.2); Mean Corpuscular Volume 97.5 fl (81-99); Monocytes # 0.3 K/mm3 (0.1-1.0); Monocytes % 4.8 % (1.7-9.3); Neutrophils # 4.3 K/mm3 (1.8-7.8); Neutrophils % 63.3 % (37.0-80.0); Platelet Count 208 K/mm3 (142-424); Red Blood Count 4.35 M/mm3 (4.20-5.40); Red Cell Distribution Width 13.8 % (11.5-17.5); White Blood Count 6.8 K/mm3 (4.8-10.8)
[2020-05-10 13:58] LABS: Alanine Aminotransferase 20 U/L (12-78); Albumin Level 4.2 g/dl (3.5-5.0); Albumin/Globulin Ratio 1.5 (1.1-1.8); Alkaline Phosphatase 56 U/L (38-126); Anion Gap 9.1 mEq/L (5-15); Aspartate Amino Transferase 30 U/L (14-36); Bilirubin,Total 0.7 mg/dl (0.2-1.3); Blood Urea Nitrogen 12 mg/dl (7-17); Calcium 9.5 mg/dl (8.4-10.2); Carbon Dioxide 29 mmol/L (22.0-30.0); Chloride 106 mmol/L (98-107); Estimated Glomerular Filt Rate 71 ml/min (>60); GFR (African American) 86 ML/MIN (>60); Globulin 2.8 g/dL (1.3-3.2); Glucose 113 mg/dl (74-100); Potassium 4.1 mmoL/L (3.5-5.1); Sodium 140 mmol/L (136-145)
[2020-05-10 14:15] LABS: 25-OH Vitamin D, Total 21.4 ng/mL (30-100)
[2020-05-10 14:30] LABS: Thyroid Stimulating Hormone 5.77 uIU/mL (0.465-4.68)
[2020-05-10 15:05] LABS: Vitamin B12 322 pg/mL (239-931)
[2020-05-10 15:35] LABS: Folate 7.82 ng/mL
== END ==
PROVIDERS: Visit Provider Internal Medicine Rheumatology
DX: M79.7 Fibromyalgia (principal); M81.0 Age-related osteoporosis without current pathological fracture; K21.9 Gastro-esophageal reflux disease without esophagitis; R52 Pain, unspecified; R26.89 Other abnormalities of gait and mobility
CPT/HCPCS: 36415; 71046; 80053; 82306; 82607; 82746; 84443; 85025

== ENCOUNTER → 2020-09-22 12:54 | Outpatient (CLI) | payer MEDICARE, OTHER, SELFPAY ==
--- NOTE | 2020-09-22 13:07 | XR_ITS ---
PROCEDURE: XR CHEST 2V CLINICAL HISTORY: CHEST WALL PAIN COMPARISON: CR CXR1 CHEST-PORTABLE from 03/22/2015 CR CXR CHEST(2 VIEWS-NOT PORTABLE) from 08/11/[address] CHEST WO CON from 11/19/2018 CR XR CHEST 2V from 05/10/2020 FINDINGS: Mild emphysematous changes are seen with hyperexpansion lung vail and flattening the hemidiaphragms. There is no infiltrate and there is no pleural fluid. Cardiac size is normal. There is stable mild postinflammatory scarring upper lobe small calcified hilar nodes bilaterally. IMPRESSION: Mild to moderate COPD, no acute chest pathology noted Dictated by: Dr. Balwinder Schulz MD 09/22/2020 13:51 Dr. Balwinder Schulz MD in [place] 09/22/2020 13:51
--- NOTE | 2020-09-22 13:08 | XR_ITS ---
PROCEDURE: XR RIBS LT MIN 3V W CXR1V CLINICAL INDICATION: CHEST WALL PAIN patient fell last week COMPARISON: CR CXR1 CHEST-PORTABLE from 03/22/2015 CR CXR CHEST(2 VIEWS-NOT PORTABLE) from 08/11/[address] CHEST WO CON from 11/19/2018 CR XR CHEST 2V from 05/10/2020 FINDINGS: Left ribs 1 through 10 are visualized and appear intact . Eleven and 12th ribs are not well seen. Left lung field is clear of infiltrate and there is no pneumothorax. Soft tissues of the left chest wall appear normal. IMPRESSION: No acute findings though the 11th and 12th ribs are not well seen Dictated by: Dr. Balwinder Schulz MD 09/22/2020 13:39 Dr. Balwinder Schulz MD in [place] 09/22/2020 13:39
== END ==
PROVIDERS: PCP Internal Medicine Adolescent Medicine; Visit Provider Internal Medicine Adolescent Medicine
DX: R07.89 Other chest pain (principal)
CPT/HCPCS: 71046; 71101

== ENCOUNTER → 2020-09-23 11:50 | Outpatient (CLI) | payer MEDICARE, OTHER, SELFPAY ==
[2020-09-23 12:21] LABS: Basophils # 0.1 K/mm3 (0-0.2); Basophils % 0.8 % (0.1-2.0); Eosinophils # 0.3 K/mm3 (0.0-0.4); Eosinophils % 5.1 % (0.1-12.0); Hematocrit 38.3 % (37.0-47.0); Hemoglobin 12.1 g/dL (12.2-16.2); Lymphocytes # 1.5 K/mm3 (0.7-4.5); Lymphocytes % 25.3 % (10-50); Mean Corpuscular HGB Conc 31.7 g/dL (31.8-35.4); Mean Corpuscular Hemoglobin 30.1 pg (27.0-31.2); Mean Corpuscular Volume 95.1 fl (81-99); Mean Platelet Volume 7.9 fl (7.4-10.4); Monocytes # 0.3 K/mm3 (0.1-1.0); Monocytes % 5.6 % (1.7-9.3); Neutrophils # 3.8 K/mm3 (1.8-7.8); Neutrophils % 63.2 % (37.0-80.0); Platelet Count 202 K/mm3 (142-424); Red Blood Count 4.03 M/mm3 (4.20-5.40); Red Cell Distribution Width 14.3 % (11.5-17.5); White Blood Count 6.1 K/mm3 (4.8-10.8)
[2020-09-23 12:47] LABS: Alanine Aminotransferase 20 U/L (12-78); Albumin Level 3.7 g/dl (3.5-5.0); Albumin/Globulin Ratio 1.4 (1.1-1.8); Alkaline Phosphatase 53 U/L (38-126); Anion Gap 8.9 mEq/L (5-15); Aspartate Amino Transferase 28 U/L (14-36); Bilirubin,Total 0.8 mg/dl (0.2-1.3); Blood Urea Nitrogen 10 mg/dl (7-17); Calcium 8.7 mg/dl (8.4-10.2); Carbon Dioxide 31 mmol/L (22.0-30.0); Chloride 105 mmol/L (98-107); Chol/HDL Ratio 3.2 (1-3.5); Cholesterol 210 mg/dl (140-200); Estimated Glomerular Filt Rate 83 ml/min (>60); GFR (African American) 101 ML/MIN (>60); Globulin 2.7 g/dL (1.3-3.2); Glucose 99 mg/dl (74-100); HDL Cholesterol 65 mg/dl (40-60); Potassium 3.9 mmoL/L (3.5-5.1); Sodium 141 mmol/L (136-145); Total Protein,Serum 6.4 g/dl (6.3-8.2); Triglycerides 111 mg/dl (30-150); VLDL Cholesterol 22 mg/dL (0-40)
[2020-09-23 13:03] LABS: 25-OH Vitamin D, Total 33.3 ng/mL (30-100)
[2020-09-23 13:05] LABS: Free Thyroxine Index 3.5 ug/dL (5.93-13.13); T4 (Thyroxine) 11.6 ug/dl (5.53-11.0); Triiodothryronine (T3) Uptake 30 % (23.5-40.5)
[2020-09-23 13:19] LABS: Thyroid Stimulating Hormone 9.57 uIU/mL (0.465-4.68)
[2020-09-23 13:36] LABS: Vitamin B12 324 pg/mL (239-931)
== END ==
PROVIDERS: Visit Provider Internal Medicine Adolescent Medicine
DX: G60.9 Hereditary and idiopathic neuropathy, unspecified (principal); E78.5 Hyperlipidemia, unspecified; R29.6 Repeated falls
CPT/HCPCS: 36415; 80053; 80061; 82306; 82607; 84436; 84443; 84479; 85025

== ENCOUNTER → 2020-09-27 13:04 | Outpatient (CLI) | payer MEDICARE, OTHER, SELFPAY ==
--- NOTE | 2020-09-27 13:06 | MM_ITS ---
PROCEDURE: MM DIG MAMM DX UNILAT LT CAD Digital Breast Tomosynthesis Included CLINICAL INDICATION: ABN MAMM OF LT BREAST Follow-up breast biopsy COMPARISON: MG MM DIG MAMM DX UNILAT LT CAD from 08/19/2019 MG MM DIG MAMM BI DX W/CAD from 02/20/2020 US US BREAST LT COMPLETE from 02/20/2020 MG MM SURGICAL SPECIMEN LT from 03/17/2020 MG MM CLIP PLACEMENT LT from 03/17/2020 US US BREAST LT COMPLETE from 09/27/2020 TECHNIQUE: Standard images performed along with spot compression views and 3D tomosynthesis. FINDINGS: There is average fibroglandular tissue. Clip is been placed in the lower outer aspect of the left breast. At the area of previously described microcalcifications.. These calcifications were determined to be fat necrosis on pathology. There does remain some residual calcifications in this region some of which are slightly more coarse when compared to the previous exam.. There is some asymmetry in the central aspect of the left breast which appears to compress out as fibroglandular tissue. No new abnormalities are apparent. Biopsy clip is present just anterior to the calcifications. Left breast ultrasound: There remains a triangular-shaped area of decreased echogenicity at the 4 o'clock region of the left breast. This was the area that was previously biopsied and is slightly smaller compared to the previous exam. There is some persistent posterior acoustical shadowing. IMPRESSION: Status post biopsy left breast. Post biopsy clip is present. There remains some calcifications in the upper outer left breast which appear stable compared to the exam of 03/17/2020. Recommend patient return to screening mammogram bilaterally at 6 months with continued ultrasound surveillance as well. BI-RAD Category: 2 Benign Finding FOLLOW-UP: 6M 6 Month Follow-up (A letter has been sent to the patient regarding results of the study.) Dictated by: Gianluca Self MD 10/01/2020 11:15 Gianluca Self MD in [place] 10/01/2020 11:15
== END ==
PROVIDERS: PCP Internal Medicine Adolescent Medicine; Visit Provider Internal Medicine Adolescent Medicine
DX: R92.8 Other abnormal and inconclusive findings on diagnostic imaging of breast (principal)
CPT/HCPCS: 76641; 77061; 77065; G0279

== ENCOUNTER → 2021-09-16 15:57 | Outpatient (CLI) | payer MEDICARE, OTHER, SELFPAY ==
--- NOTE | 2021-09-16 16:00 | MR_ITS ---
PROCEDURE INFORMATION: Exam: MR Head Without Contrast Exam date and time: 09/16/2021 4:04 PM Age: 71 years old Clinical indication: The to the the Headache; Additional info: Headache and dizziness for 5 days. HX lung and cervical cancer. TECHNIQUE: Imaging protocol: Magnetic resonance imaging of the head without contrast. COMPARISON: BRAINWO MR head/brain wo con 01/18/2018 1:03 PM FINDINGS: Brain: There are scattered nonspecific foci of high signal abnormality in the montes de oca radiata and centrum semiovale. These are best seen on the flair images. These foci may represent areas of gliosis, demyelination, and/or chronic ischemic change. Cerebral ventricles: Normal. No ventriculomegaly. Bones/joints: Unremarkable. Paranasal sinuses: Normal as visualized. No acute sinusitis. Mastoid air cells: Normal as visualized. No mastoid effusion. Orbital cavities: Unremarkable. Soft tissues: Unremarkable. IMPRESSION: There are scattered nonspecific foci of high signal abnormality in the montes de oca radiata and centrum semiovale. These are best seen on the flair images. These foci may represent areas of gliosis, demyelination, and/or chronic ischemic change. No acute infarct is identified. 2
== END ==
PROVIDERS: PCP Internal Medicine Adolescent Medicine; Visit Provider Internal Medicine Adolescent Medicine
DX: R51.9 Headache, unspecified (principal)
CPT/HCPCS: 70551

== ENCOUNTER → 2022-02-20 13:44 | Outpatient (CLI) | payer MEDICARE, OTHER, SELFPAY ==
--- NOTE | 2022-02-20 13:51 | XR_ITS ---
FINAL REPORT CLINICAL HISTORY: BILATERAL HIP PAIN, LOW BACK PAIN HX OF FALL 1 YEAR AGO RT HIP IMAGED SEPERATELY FINDINGS: LEFT HIP Two views of the left hip including an AP pelvis demonstrate no acute fracture or dislocation. The hip joint spaces appear normal. There are moderate degenerative changes in the lower lumbar spine. The visualized bony structures are well aligned. There are postoperative changes in the lower pelvis. No other soft tissue abnormality is seen. IMPRESSION: No acute bony abnormality. Reviewed, Interpreted and Dictated by Cristi Toure III, MD Transcribed by Rachel Gar Authenticated and [facility]
--- NOTE | 2022-02-20 13:51 | XR_ITS ---
FINAL REPORT CLINICAL HISTORY: BILATERAL HIP AND LOW BACK PAIN HX OF FALL 1 YEAR AGO LT HIP IMAGED SEPERATELY FINDINGS: RIGHT HIP Two views of the right hip including an AP pelvis demonstrate no acute fracture or dislocation. The hip joint spaces appear normal. There are moderate degenerative changes in the lower lumbar spine. The visualized bony structures are well aligned. There are postoperative changes in the lower pelvis. No other soft tissue abnormality is seen. IMPRESSION: No acute bony abnormality. Reviewed, Interpreted and Dictated by Cristi Toure III, MD Transcribed by Rachel Gar Authenticated and [facility]
== END ==
PROVIDERS: PCP Internal Medicine Adolescent Medicine; Visit Provider Internal Medicine Adolescent Medicine
DX: M54.50 Low back pain, unspecified (principal); M25.552 Pain in left hip; M25.551 Pain in right hip
CPT/HCPCS: 73502

== ENCOUNTER 2022-04-08 15:42 | Inpatient (IN) | payer MEDICARE, OTHER, SELFPAY ==
[2022-04-08] VITALS (9 sets, daily range): BP systolic 113–142; BP diastolic 53–67; PULSE 62–79; RESP 16–20; TEMP 36.6–37.1; O2SAT 94–98; BMI 29.8; BMI 28.8
--- NOTE | 2022-04-08 15:58 | PC.NURSE ---
VANESSA HELM at
--- NOTE | 2022-04-08 15:59 | PC.NURSE ---
Family at BS
--- NOTE | 2022-04-08 16:01 | XR_ITS ---
PROCEDURE INFORMATION: Exam: XR Chest Exam date and time: 04/08/2022 5:00 PM Age: 72 years old Clinical indication: Injury or trauma; Fall; Additional info: Prob hip FX TECHNIQUE: Imaging protocol: Radiologic exam of the chest. Views: 1 view. COMPARISON: CR XR CHEST 2V 09/22/2020 1:09 PM FINDINGS: Lungs: Poorly defined density in right suprahilar region. Left lung clear. Pleural spaces: Unremarkable. No pleural effusion. No pneumothorax. Heart/Mediastinum: Unremarkable. No cardiomegaly. Bones/joints: Unremarkable. IMPRESSION: Poorly defined suprahilar region density. Can not exclude mass. Recommend outpatient CT for further imaging evaluation. No acute findings identified.
--- NOTE | 2022-04-08 16:01 | CT_ITS ---
PROCEDURE INFORMATION: Exam: CT Lumbar Spine Without Contrast Exam date and time: 04/08/2022 4:41 PM Age: 72 years old Clinical indication: Injury or trauma; Fall; Blunt trauma (contusions or hematomas); Additional info: Fall, injury TECHNIQUE: Imaging protocol: Computed tomography of the lumbar spine without contrast. Radiation optimization: All CT scans at this facility use at least one of these dose optimization techniques: automated exposure control; mA and/or kV adjustment per patient size (includes targeted exams where dose is matched to clinical indication); or iterative reconstruction. Other protocol: This patient has received [address] and 0 known cardiac nuclear medicine studies in the 12 months prior to the current study. COMPARISON: ABDPELWW CT abdomen pelvis wo/w con 05/22/2018 11:14 AM FINDINGS: Bones/joints: No acute spinal fracture identified. Poorly defined sclerosis in right sacral ala and iliac bone. Subtle lucency in left sacral ala. Normal alignment. No significant disc protrusion. No severe spinal canal stenosis. Diffuse osteopenia. Soft tissues: Unremarkable. IMPRESSION: 1. No acute spinal fracture identified. 2. Suspected, nondisplaced right sacroiliac joint fracture with partial healing. Suspected nondisplaced fracture of left sacral ala, possibly reflecting combination of traumatic and insufficiency fractures.
--- NOTE | 2022-04-08 16:01 | ECG_ITS ---
APPROVED REPORT Exam: Resting ECG HR:68 bpm ECG Measurements Heart Rate 68 AXES [place] 171 P 79 QRSd 104 QRS 56 QT 417 T 69 QTc 434 Conclusion SINUS RHYTHM INCOMPLETE RIGHT BUNDLE BRANCH BLOCK [90+ ms QRS DURATION, TERMINAL R IN V1/V2, 40+ ms S IN I/aVL/V4/V5/V6] BORDERLINE ECG UNCONFIRMED REPORT Electronically signed by : Fernando Fernandez MD 04/09/2022 15:07:37
--- NOTE | 2022-04-08 16:01 | CT_ITS ---
PROCEDURE INFORMATION: Exam: CT Left Lower Extremity Without Contrast, Hip Exam date and time: 04/08/2022 4:44 PM Age: 72 years old Clinical indication: Injury or trauma; Fall; Blunt trauma; Hip; Left TECHNIQUE: Imaging protocol: CT of the Left lower extremity without contrast was performed. Exam focused on the hip. 3D rendering (Not supervised by radiologist): MIP and/or 3D reconstructed images were created by the technologist. Radiation optimization: All CT scans at this facility use at least one of these dose optimization techniques: automated exposure control; mA and/or kV adjustment per patient size (includes targeted exams where dose is matched to clinical indication); or iterative reconstruction. Other protocol: This patient has received [address] and 0 known cardiac nuclear medicine studies in the 12 months prior to the current study. COMPARISON: LEAJW/OLT MRI-LOW EXT ANY JOINT W/O-LT 07/07/2016 9:30 AM FINDINGS: Bones/joints: Comminuted, displaced, impacted, angulated intertrochanteric fracture of left femur. No dislocation. Soft tissues: Normal. IMPRESSION: Left femoral intertrochanteric fracture.
--- NOTE | 2022-04-08 16:02 | XR_ITS ---
PROCEDURE INFORMATION: Exam: XR Pelvis Exam date and time: 04/08/2022 5:00 PM Age: 72 years old Clinical indication: Injury or trauma; Fall TECHNIQUE: Imaging protocol: Radiologic exam of the pelvis. Views: 1 or 2 view. COMPARISON: CR XR HIP LT 2-3V W/PELVIS 02/20/2022 2:01 PM FINDINGS: Bones/joints: Displaced, comminuted impacted angulated intratrochanteric fracture left femur. No dislocation. Sacrum sacroiliac joints suboptimally visualized secondary to overlying bowel gas. Soft tissues: Unremarkable. IMPRESSION: Left femoral intertrochanteric fracture.
[2022-04-08 16:18] LABS: Chloride 108 mmol/L (98-107); Potassium 4.3 mmoL/L (3.5-5.1); Sodium 141 mmol/L (136-145)
[2022-04-08 16:20] LABS: Blood Urea Nitrogen 12 mg/dl (7-17); Creatinine Clearance Estimated 69 mL/min (50-200); Estimated Glomerular Filt Rate 99 ml/min (>60); GFR (African American) 120 ML/MIN (>60)
[2022-04-08 16:21] LABS: Alanine Aminotransferase 19 U/L (12-78); Albumin Level 3.9 g/dl (3.5-5.0); Albumin/Globulin Ratio 1.3 (1.1-1.8); Alkaline Phosphatase 50 U/L (38-126); Anion Gap 7.3 mEq/L (5-15); Aspartate Amino Transferase 33 U/L (14-36); Basophils # 0.1 K/mm3 (0-0.2); Basophils % 0.6 % (0.1-2.0); Bilirubin,Total 0.9 mg/dl (0.2-1.3); Calcium 8.8 mg/dl (8.4-10.2); Carbon Dioxide 30 mmol/L (22.0-30.0); Eosinophils # 0.2 K/mm3 (0.0-0.4); Eosinophils % 1.2 % (0.1-12.0); Globulin 3.1 g/dL (1.3-3.2); Glucose 119 mg/dl (74-100); Hematocrit 42.1 % (37.0-47.0); Hemoglobin 13.4 g/dL (12.2-16.2); Lymphocytes # 1.3 K/mm3 (0.7-4.5); Lymphocytes % 10.8 % (10-50); Mean Corpuscular HGB Conc 31.9 g/dL (31.8-35.4); Mean Corpuscular Volume 93.9 fl (81-99); Mean Platelet Volume 10.6 fl (7.4-10.4); Monocytes # 0.4 K/mm3 (0.1-1.0); Monocytes % 3.2 % (1.7-9.3); Neutrophils # 10.3 K/mm3 (1.8-7.8); Neutrophils % 84.2 % (37.0-80.0); Platelet Count 223 K/mm3 (142-424); Red Blood Count 4.48 M/mm3 (4.20-5.40); Red Cell Distribution Width 13.9 % (11.5-17.5); White Blood Count 12.2 K/mm3 (4.8-10.8)
[2022-04-08 16:22] LABS: Creatine Kinase 106 U/L (30-135)
--- NOTE | 2022-04-08 16:27 | HMH.EDGENADL ---
Discharge Plan Disposition Patient Disposition: Admitted As Inpatient Condition: Good Chief Complaint: PAIN Prescriptions Prescriptions: No Action trazodone 100 mg tablet 100 mg PO ONCE ibuprofen 800 mg tablet 800 mg PO TID omeprazole 20 mg capsule,delayed release(DR/EC) 20 mg PO ONCE PRN (Reason: stomach) latanoprost 0.005 % drops 1 drp OPHTHALMIC QPM ibandronate 150 mg tablet 150 mg PO QMONTH albuterol sulfate [Ventolin HFA] 90 mcg/actuation HFA aerosol inhaler 1 puff INHALATION Q4-6H PRN (Reason: breathing) gabapentin 300 mg capsule 300 mg PO TID methocarbamol 500 mg tablet 750 mg PO TID 30 Days Qty: 135 albuterol sulfate 1.25 mg/3 mL solution for nebulization 1.25 mg INHALATION QID PRN (Reason: breathing) levothyroxine 75 mcg tablet 75 mcg PO DAILY sertraline 50 mg tablet 50 mg PO DAILY glycopyrrolate-formoterol 10.7 GM HFA aerosol inhaler 2 puffs IH BID potassium 99 MG tablet 2 tab PO HS magnesium 250 MG tablet 250 mg PO DAILY cholecalciferol (vitamin D3) 1,000 UNIT tablet,chewable 2,000 unit PO BID Referrals Follow up/Referrals: Fernando Fernandez MD [Primary Care Provider] - See instructions Clinical Impressions Clinical Impression: Closed left hip fracture, Closed fracture dislocation of sacroiliac joint Discharge ED Provider: Abram Jiménez General Adult HPI General Chief complaint: PAIN Stated complaint: fall Time Seen by Provider: 04/08/22 15:45 Mode of Arrival: EMS Source of Information: Patient Limitations: No Limitations Description of Symptoms (Recalled from ER Triage Doc. by RN): pt to ed via ems c/o fall. pt states she was getting off the commode, her legs were weak and she fell on her left side on the hardwood. pt states she has left hip pain. History of Present Illness HPI narrative: The patient is brought in by ambulance. She says that she was on the commode and one of her legs went to sleep causing her to fall when she tried to stand up. She laid for 2 hours because she could not get up. She injured her left hip and her lower back. States that her left lower extremity still feels a little bit asleep. Denies any head or neck injury. No chest or abdominal injury. Related Data Home Medications Medication Instructions Recorded Confirmed albuterol sulfate 90 mcg/actuation 1 puff inhalation Q4-6H PRN 08/01/17 01/14/19 aerosol inhaler (Ventolin HFA) breathing ibandronate 150 mg tablet 150 mg PO QMONTH Osteoporosis 08/01/17 01/14/19 ibuprofen 800 mg tablet 800 mg PO TID Pain 08/01/17 01/14/19 latanoprost 0.005 % eye drops 1 drp ophthalmic (eye) QPM Glaucoma 08/01/17 01/14/19 omeprazole 20 mg capsule,delayed 20 mg PO ONCE PRN stomach 08/01/17 01/14/19 release trazodone 100 mg tablet 100 mg PO ONCE sleep 08/01/17 01/14/19 albuterol sulfate 1.25 mg/3 mL 1.25 mg inhalation QID PRN 08/20/17 01/14/19 solution for nebulization breathing cholecalciferol (vitamin D3) 25 2,000 unit PO BID Supplement 12/14/17 01/14/19 mcg (1,000 unit) chewable tablet glycopyrrolate 9 mcg-formoterol 2 puffs IH BID COPD/emphysema 12/14/17 01/14/19 4.8 mcg HFA aerosol inhaler magnesium 250 mg tablet 250 mg PO DAILY Supplement 12/14/17 01/14/19 potassium 99 mg tablet 2 tab PO HS Supplement 12/14/17 01/14/19 methocarbamol 500 mg tablet 750 mg PO TID 30 days #135 tabs 12/31/17 01/14/19 gabapentin 300 mg capsule 300 mg PO TID Pain 01/08/18 01/14/19 levothyroxine 75 mcg tablet 75 mcg PO DAILY 08/19/18 01/14/19 sertraline 50 mg tablet 50 mg PO DAILY 08/19/18 01/14/19 Allergies Allergy/AdvReac Type Severity Reaction Status Date / Time Sulfa (Sulfonamide Allergy Unknown Verified 01/14/19 10:15 Antibiotics) [SULFA (SULFONAMIDE ANTIBIOTICS)] [facility] Disclaimer: The information contained in this section may have been updated after the patient was seen, as this information can be updated by
--- NOTE | 2022-04-08 16:32 | PC.NURSE ---
pt to radiology via stretcher
--- NOTE | 2022-04-08 17:15 | PC.NURSE ---
spoke with vrad for chest xr findings. MD garzon
[2022-04-08 17:30] LABS: Coronavirus 19, PCR Not Detected (NotDetected); Influenza A, PCR Not Detected (NotDetected); Influenza B, PCR Not Detected (NotDetected)
[2022-04-08 17:30] LABS: Microscopic, Urine URINE MICROSCOPIC (MICROSCOPIC)
--- NOTE | 2022-04-08 17:32 | PC.NURSE ---
VANESSA HELM speaking with ILEANA at this time
[2022-04-08 17:38] LABS: Appearance,Urine CLEAR (Clear); Bilirubin,Urine Negative (Negative); Blood, Urine Negative (Negative); Color,Urine YELLOW (Yellow); Glucose,Urine (UA) Negative (Negative); Ketones,Urine 1+ (Negative); Leukocyte Esterase,Urine Negative (Negative); Nitrate,Urine Negative (Negative); Protein,Urine Negative (Negative); Specific Gravity, Urine >= 1.030 (1.005-1.030); Urobilinogen,Urine 0.2 EU/dl (0.2)
[2022-04-08 17:45] LABS: WBC,Urine Occasional #/hpf (0-3)
--- NOTE | 2022-04-08 17:45 | PC.NURSE ---
ARMAAN [address] Dr. and Dr. Fernandez for ER MD
--- NOTE | 2022-04-08 17:46 | PC.NURSE ---
VANESSA HELM speaking with Dr. Vasquez at this time
--- NOTE | 2022-04-08 17:50 | PC.NURSE ---
speaking to dr friedman for admit
--- NOTE | 2022-04-08 17:55 | PC.NURSE ---
called dye house helper for bed assignment
--- NOTE | 2022-04-08 18:22 | PC.NURSE ---
called report to debo izaguirre
--- NOTE | 2022-04-08 18:37 | PC.NURSE ---
arrived to floor by stretcher from ED
--- NOTE | 2022-04-08 20:37 | EXP.HP ---
History of Present Illness *Admission Date: 04/08/22 *Reason for visit:: Fall with left hip pain *History of present illness: 72-year-old female who has a history of lung cancer, status post resection and treatment, currently followed by oncology, also history of diastolic CHF but euvolemic and with good activity levels, who was sitting on her commode for quite a long time apparently reading today and when she try to get out of her legs and becoming then she fell, striking her left pelvis and hip on the floor. She was unable to get up, her family later found her. Brought her to the ER. She was found to have a comminuted, displaced fracture of the left intertrochanteric portion of the femoral neck and was admitted to hospital for orthopedic consultation and pain control. [facility] Disclaimer: The information contained in this section may have been updated after the patient was seen, as this information can be updated by other users. Medical History (Updated 04/08/22 @ 20:40 by Fernando Fernandez MD) Cervical cancer Chronic pain COPD (chronic obstructive pulmonary disease) Emphysema lung Glaucoma Hypothyroid Lung cancer Surgical History (Updated 04/08/22 @ 18:57 by Asmita Crabtree RN) History of appendectomy History of bowel resection Hx of cholecystectomy Family History (Updated 04/08/22 @ 18:57 by Asmita Crabtree RN) Diabetes AAA (abdominal aortic aneurysm) High cholesterol COPD (chronic obstructive pulmonary disease) Cancer Hypertension Stroke Social History (Updated 04/08/22 @ 18:58 by Asmita Crabtree RN) Smoking Status: Never smoker alcohol intake: never counseling provided: none substance use type: denies use current occupational status: retired Travel in the last 8 weeks: None household members: family housing: house marital status: number of children: 2 number of grandchildren: 5 caffeine: No Review of Systems Review of Systems Review of systems:: pertinent systems reviewed and negative unless documented below Review of systems (narrative): Patient reports she occasionally uses oxygen at night. This has not increased recently. No increased edema. Denies shortness of air over baseline, palpitations, chest pain or exertional dyspnea. Cardiac function is excellent. Constitutional Constitutional: Denies headache(s) and Denies weakness ENT Ears, Nose, Mouth, and Throat: Denies headache(s) *Musculoskeletal Musculoskeletal: Reports numbness and Reports tingling (Left lower extremity) *Neurologic Neurologic: Denies headache(s), Reports numbness, Reports tingling (Left lower extremity) and Denies weakness Meds Home Medications and Allergies Home Medications Medication Instructions Recorded Confirmed Type albuterol sulfate 90 mcg/actuation 1 puff inhalation Q4-6H PRN 08/01/17 04/08/22 History aerosol inhaler (Ventolin HFA) breathing ibandronate 150 mg tablet 150 mg PO QMONTH Osteoporosis 08/01/17 04/08/22 History ibuprofen 800 mg tablet 800 mg PO TID Pain 08/01/17 04/08/22 History latanoprost 0.005 % eye drops 1 drp ophthalmic (eye) QPM Glaucoma 08/01/17 04/08/22 History omeprazole 20 mg capsule,delayed 20 mg PO ONCE PRN stomach 08/01/17 04/08/22 History release trazodone 100 mg tablet 100 mg PO ONCE sleep 08/01/17 04/08/22 History albuterol sulfate 1.25 mg/3 mL 1.25 mg inhalation QID PRN 08/20/17 04/08/22 History solution for nebulization breathing cholecalciferol (vitamin D3) 25 2,000 unit PO BID Supplement 12/14/17 04/08/22 History mcg (1,000 unit) chewable tablet glycopyrrolate 9 mcg-formoterol 2 puffs IH BID COPD/emphysema 12/14/17 04/08/22 History 4.8 mcg HFA aerosol inhaler magnesium 250 mg tablet 250 mg PO DAILY Supplement 12/14/17 04/08/22 History potassium 99 mg tablet 2 tab PO HS Supplement 12/14/17 04/08/22 History methocarbamol 500 mg tablet 750 mg PO TID Pain 30 days #135 12/31/17 04/08/22 History tabs gabapentin 300 mg capsule 3
[2022-04-09] VITALS (19 sets, daily range): BP systolic 105–142; BP diastolic 50–77; PULSE 72–94; RESP 12–18; TEMP 36.6–43; O2SAT 92–99; BMI 29.0
--- NOTE | 2022-04-09 03:33 | PC.NURSE ---
Pt has c/o pain x1 this shift. Medicated per may. VS have remained stable. Pt on 2L O2 NC. Pt states she wears O2 at home. F/c draining to bedside. Pt is NPO at this time.
--- NOTE | 2022-04-09 08:22 | EXP.ACUTE.PN ---
Subjective *Date: 04/09/22 *Time: 08:22 Interval history: Patient sleeping comfortably with oxygen. Normal oxygen saturations. Normal vital signs. When awake and notes that her pain has improved in the late morning hours. Medical Exam Vital signs and Labs for Last 24 Hours: Vital Signs Temp Pulse Pulse Resp BP BP Pulse Ox 04/08/22 23:40 98.7 F 69 18 117/53 L 94 L 04/08/22 18:49 97.9 F 79 18 134/57 L 97 04/08/22 18:01 72 16 140/62 98 04/08/22 18:26 98.2 F 73 20 140/67 04/08/22 17:30 69 131/65 97 04/08/22 17:01 68 20 122/55 L 98 04/08/22 16:31 72 16 113/56 L 96 04/08/22 16:00 65 142/58 H 98 04/08/22 15:58 98.2 F 62 20 117/53 L 98 Intake and Output 04/08/22 04/09/22 04/09/22 19:59 03:59 11:59 Intake Total 428 / 428 Output Total 250 / 350 100 / 350 Balance -250 / 78 328 / 78 Intake: Intake, Total IV Amount 428 / 428 0.9 % Sodium Chloride 1,000 ml 428 / 428 @ 50 mls/hr IV .Q20H [facility] Rx#: [id number] Output: Output, Urine Amount 250 / 350 100 / 350 Other: Number of Unmeasured Voids 0 0 Weight 173 lb 3 oz 174 lb 3 oz Patient Weight 04/09/22 11:59 Weight 174 lb 3 oz Laboratory Results - last 24 hr 04/08/22 15:47: WBC 12.2 H, RBC 4.48, Hgb 13.4, Hct 42.1, MCV 93.9, MCH 30.0, MCHC 31.9, RDW 13.9, Plt Count 223, MPV 10.6 H, Neut % (Auto) 84.2 H, Lymph % (Auto) 10.8, [place] % (Auto) 3.2, Eos % (Auto) 1.2, Baso % (Auto) 0.6, Neut # (Auto) 10.3 H, Lymph # (Auto) 1.3, [place] # (Auto) 0.4, Eos # (Auto) 0.2, Baso # (Auto) 0.1 04/08/22 15:47: Sodium 141, Potassium 4.3, Chloride 108 H, Carbon Dioxide 30, Anion Gap 7.3, BUN 12, Creatinine 0.60, Estimated Creat Clear 69, Estimated GFR 99, Est GFR ( Amer) 120, Glucose 119 H, Calcium 8.8, Total Bilirubin 0.9, AST 33, ALT 19, Alkaline Phosphatase 50, Total Creatine Kinase 106, Total Protein 7.0, Albumin 3.9, Globulin 3.1, Albumin/Globulin Ratio 1.3 04/08/22 17:22: Urine Color Yellow, Urine Appearance Clear, Urine pH 5.0, Ur Specific [place] >= 1.030, Urine Protein Negative, Urine Glucose (UA) Negative, Urine Ketones 1+, Urine Blood Negative, Urine Nitrate Negative, Urine Bilirubin Negative, Urine Urobilinogen 0.2, Ur Leukocyte Esterase Negative, Urine RBC None, Urine WBC Occasional, Ur Squamous Epith Cells None, Urine Bacteria None 04/08/22 17:26: SARS-CoV-2 (PCR) Not detected, Influenza A Untype (PCR) Not detected, Influenza Type B (PCR) Not detected I & O for Labs for Last 24 Hours: Intake & Output 04/06/22 04/07/22 04/08/22 04/09/22 11:59 11:59 11:59 11:59 Intake Total 428 / 428 Output Total 350 / 350 Balance 78 / 78 Weight 174 lb 3 oz Comment:: Alert, pleasant. Heart rate regular. Lungs clear. Abdomen soft. Left leg remains foreshortened and rotated. Pain with movement. Good distal pulses and perfusion Assessment and Plan *Assessment and plan (1) Closed left hip fracture: Status: Acute Category: Medical Code(s): S72.002A - Fracture of unspecified part of neck of left femur, initial encounter for closed fracture (2) Closed fracture dislocation of sacroiliac joint: Status: Acute Category: Medical (3) COPD (chronic obstructive pulmonary disease): Status: Acute Category: Medical Code(s): J44.9 - Chronic obstructive pulmonary disease, unspecified (4) Lung cancer: Status: Acute Category: Medical Code(s): C34.90 - Malignant neoplasm of unspecified part of unspecified bronchus or lung (5) Hypothyroid: Status: Acute Category: Medical Code(s): E03.9 - Hypothyroidism, unspecified Plan Orthopedics aware of patient, will see patient tomorrow and plan for surgery. Discussed with patient and her son probable need for skilled rehab once hip fixed. Cleared for surgery from our perspective. No indications for cardiac risk factors above and beyond her age.
--- NOTE | 2022-04-09 09:59 | HMH.PHAINT1 ---
Pharmacy Intervention Comments: MEDICATION RECONCILIATION COMPLETE USING LIST FROM MD OFFICE, EXTERNAL PHARMACY FILL HISTORY, AND PATIENT INTERVIEW.
--- NOTE | 2022-04-09 10:06 | EXP.ORTH.CON ---
History of Present Illness *Admission Date: 04/08/22 *History of present illness: 72-year-old female who has a history of lung cancer, status post resection and treatment, currently followed by oncology, also history of diastolic CHF but euvolemic and with good activity levels, who was sitting on her commode for quite a long time apparently reading today and when she try to get out of her legs and becoming then she fell, striking her left pelvis and hip on the floor. She was unable to get up, her family later found her. Brought her to the ER. She was found to have a comminuted, displaced fracture of the left intertrochanteric portion of the femoral neck and was admitted to hospital for orthopedic consultation. [facility] Disclaimer: The information contained in this section may have been updated after the patient was seen, as this information can be updated by other users. Medical History Cervical cancer Chronic pain COPD (chronic obstructive pulmonary disease) Emphysema lung Glaucoma Hypothyroid Lung cancer Surgical History History of appendectomy History of bowel resection Hx of cholecystectomy Family History Other AAA (abdominal aortic aneurysm) COPD (chronic obstructive pulmonary disease) Cancer Diabetes High cholesterol Hypertension Stroke Social History Smoking Status: Never smoker alcohol intake: never counseling provided: none substance use type: denies use current occupational status: retired Travel in the last 8 weeks: None household members: family housing: house marital status: number of children: 2 number of grandchildren: 5 caffeine: No Review of Systems Constitutional Constitutional: Denies headache(s) and Denies weakness ENT Ears, Nose, Mouth, and Throat: Reports system reviewed and no additional complaints, except as documented and Denies headache(s) *Cardiovascular Cardiovascular: Denies chest pain *Respiratory Respiratory: Reports other (home oxygen use) *Gastrointestinal Gastrointestinal: Reports system reviewed and no additional complaints, except as documented *Genitourinary Genitourinary: Reports system reviewed and no additional complaints, except as documented *Musculoskeletal Musculoskeletal: Reports as per HPI, Reports numbness and Reports tingling (Left lower extremity) *Neurologic Neurologic: Denies headache(s), Reports numbness, Reports tingling (Left lower extremity) and Denies weakness Meds Home Medications and Allergies Home Medications Medication Instructions Recorded Confirmed Type albuterol sulfate 90 mcg/actuation 2 puff inhalation QIDP PRN 08/01/17 04/09/22 History aerosol inhaler (Ventolin HFA) Shortness Of Breath ibuprofen 800 mg tablet 800 mg PO TID MILD TO MODERATE PAIN 08/01/17 04/09/22 History latanoprost 0.005 % eye drops 1 drp Eye-Both QPM Glaucoma 08/01/17 04/09/22 History omeprazole 20 mg capsule,delayed 20 mg PO DAILY Reflux/Acid reflux 08/01/17 04/09/22 History release trazodone 100 mg tablet 100 mg PO HS sleep 08/01/17 04/09/22 History albuterol sulfate 1.25 mg/3 mL 1.25 mg inhalation Q4HP PRN 08/20/17 04/09/22 History solution for nebulization breathing cholecalciferol (vitamin D3) 25 2,000 unit PO DAILY Supplement 12/14/17 04/09/22 History mcg (1,000 unit) chewable tablet methocarbamol 500 mg tablet 500 - 1,000 mg PO BIDP PRN MUSCLE 12/31/17 04/09/22 History SPASMS 30 days #135 tabs gabapentin 300 mg capsule 300 mg PO TID NEUROPATHY 01/08/18 04/08/22 History fluticasone fur. 100 mcg-umeclid 1 inh inhalation DAILY COPD 04/08/22 04/08/22 History 62.5 mcg-vilant 25 mcg inhalat.powder (Trelegy Ellipta) diclofenac sodium 1 % topical gel 2 g topical QID Arthritis 04/09/22 04/09/22 History lev
--- NOTE | 2022-04-09 11:47 | P.PN_ITS ---
[facility] Disclaimer: The information contained in this section may have been updated after the patient was seen, as this information can be updated by other users. Medical History Cervical cancer Chronic pain COPD (chronic obstructive pulmonary disease) Emphysema lung Glaucoma Hypothyroid Lung cancer Surgical History History of appendectomy History of bowel resection Hx of cholecystectomy Family History Other AAA (abdominal aortic aneurysm) COPD (chronic obstructive pulmonary disease) Cancer Diabetes High cholesterol Hypertension Stroke Social History Smoking Status: Never smoker alcohol intake: never counseling provided: none substance use type: denies use current occupational status: retired Travel in the last 8 weeks: None household members: family housing: house marital status: number of children: 2 number of grandchildren: 5 caffeine: No [facility] Anesthesia Checklist Patient Identification Patient Identification: Arm Band and Verbal (Name & ) Structural Data Admitted From: Inpatient Planned Operative Procedure/s: Left TNF Hip Nail Consent for Planned Operative Procedure(s) Verified: Yes Verified Documents: Surgical Consent NPO Status Verified Time NPO: 00:00 Additional verifications Anesthesia Reactions: No Hx Blood Transfusions: No Blood Transfusion Reaction: No Airway Assessment C-Spine Mobility Assessed: Yes TMJ Mobility Assessed: Yes Neurological Assessment Level of Consciousness: Awake, Alert and Appropriate Anesthesia Plan Anesthesia Risk discussed: Yes ASA Class: III Anesthesia Type: General
--- NOTE | 2022-04-09 12:15 | XR_ITS ---
PROCEDURE INFORMATION: Exam: XR Left Hip Exam date and time: 04/09/2022 12:15 PM Age: 72 years old Clinical indication: Screening exam; Gamma nail surgery- surgery and operative images; Prior surgery; Surgery date: Post-operative (0-2 days); Additional info: Gamma nail left hip FX TECHNIQUE: Imaging protocol: Radiologic exam of the Left hip. Views: 2 or 3 views hip with pelvis when performed. COMPARISON: CR XR PELVIS 1-2V 04/08/2022 5:00 PM FINDINGS: Bones/joints: Intraoperative ORIF of proximal femoral shaft Soft tissues: Unremarkable. IMPRESSION: Intraoperative ORIF
--- NOTE | 2022-04-09 12:44 | EXP.ANES.I ---
[facility] Anesthesia Record Part I Anesthesia Record I Intake, IV Amount: 600 Estimated blood loss (mL): 50 Urine output (mL): 100 Blood Pressure: 134/77 SaO2: 98 Pulse Rate: 94 Respiratory Rate: 12 Temperature: 99.1 F Patient is:: Drowsy, Nasal O2 and Stable Stable to PACU at:: 12:40
--- NOTE | 2022-04-09 12:54 | P.OP_ITS ---
Date of procedure: 04/09/22 Pre-op Diagnosis:: Left intertrochanteric hip fracture Post-op Diagnosis:: Same Procedure performed:: Cephalomedullary nailing left intertrochanteric hip fracture Surgeon:: Dhaval Vasquez DO MANAGER COSTING:: Luis Angeles Anesthesia: GETA Estimated blood loss (mL): 100 Operative findings:: See dictation Operative note:: Patient was identified preoperatively. Left hip was marked with a yes and my initials. Transferred operative suite. Placed upon on the radiolucent fracture table. General anesthesia was administered and airway secured. Placed inline traction with the fracture table with the left leg on the radiolucent bed. All bony prominences well-padded. Right lower extremity placed in semilithotomy position. Once positioned on the fracture table and secured x-ray was brought into confirm reduction of the intertrochanteric hip fracture. Traction and internal rotation reduce the fracture anatomically. X-rays were taken the AP and lateral views to confirm reduction. Left hip was then prepped and draped in normal sterile fashion. Once prepped and draped final operative timeout performed to identify proper patient procedure and extremity. Everyone involved in the case agree. There were no contraindications to beginning. She did receive preoperative antibiotics. Marcaine was used and marked a incision 2 fingerbreadths above the greater trochanter. Skin knife was used incise the skin down to the IT band. Tip of the greater trochanter was palpated and a guidewire was placed under direct visualization on the x-ray the guidewire was placed through the tip of the great er trochanter into the femoral canal. Once guidewire was properly positioned soft tissue guide was placed and the opening reamer was placed in the greater trochanter. Guidewire was left in place and the Synthes TFN cephalomedullary nail was selected and placed over the guidewire. X-ray was used to show the proper depth of the implant. Once this was obtained the triple cannula was used for plac ement of the guidewire into the femoral head. AP and lateral views were used to find the depth and measured to 105 mm helical blade. The lateral cortex was then breached with a drill and the 805 mm helical blade was impacted into place under direct visualization. The locking mechanism and the top of the nail into the helical blade was then tightened. Attention was brought distally through the guide where the distal screw was placed in the nail in proper size. The gas generator operator mechanism was then removed from the nail pictures were taken in the AP and lateral views with good reduction and nail in good position. Irrigation of the wounds performed. IT band was closed with 0 Vicryl deep layers closed with 0 Vicryl subcutaneous with 2-0 Vicryl. Surgical clips in the skin for closure sterile dressing placed. Patient [facility] esthesia taken recovery in stable condition Condition: stable Disposition: PACU Complications:: None apparent
--- NOTE | 2022-04-09 13:39 | SUR.PHASEI ---
1310-Detailed report given to CHRISTINE Cabrera @ this time 1318- Pt brought to the floor at this time. Bedside report given to CHRISTINE Cabrera by this RN and CHRISTINE Oscar.
--- NOTE | 2022-04-09 18:49 | PC.NURSE ---
treated for pain x3 this shift. greenwood cath remains in place. tolerating diet well.
[2022-04-10] VITALS: BP 106/56; PULSE 74; RESP 18; TEMP 36.8; O2SAT 95
[2022-04-10 04:00] VITALS: BP 117/50; PULSE 68; RESP 16; TEMP 36.7; O2SAT 97; BMI 30.7
--- NOTE | 2022-04-10 07:07 | PC.NURSE ---
Pt medicated prn for left hip pain one time this shift. Pt has had no other complaints. Murphy catheter in place draining dark yellow urine.
[2022-04-10 08:00] VITALS: BP 110/62; PULSE 71; RESP 16; TEMP 36.7; O2SAT 99
[2022-04-10 08:19] LABS: Basophils % 0.4 % (0.1-2.0); Eosinophils # 0.1 K/mm3 (0.0-0.4); Eosinophils % 1.2 % (0.1-12.0); Hematocrit 30.9 % (37.0-47.0); Hemoglobin 9.6 g/dL (12.2-16.2); Lymphocytes # 1.8 K/mm3 (0.7-4.5); Lymphocytes % 21.7 % (10-50); Mean Corpuscular HGB Conc 30.9 g/dL (31.8-35.4); Mean Corpuscular Hemoglobin 29.7 pg (27.0-31.2); Mean Corpuscular Volume 95.9 fl (81-99); Mean Platelet Volume 9.6 fl (7.4-10.4); Monocytes # 0.4 K/mm3 (0.1-1.0); Monocytes % 5.4 % (1.7-9.3); Neutrophils # 5.8 K/mm3 (1.8-7.8); Neutrophils % 71.4 % (37.0-80.0); Platelet Count 154 K/mm3 (142-424); Red Blood Count 3.23 M/mm3 (4.20-5.40); Red Cell Distribution Width 13.7 % (11.5-17.5); White Blood Count 8.1 K/mm3 (4.8-10.8)
--- NOTE | 2022-04-10 08:45 | EXP.ACUTE.PN ---
Subjective *Date: 04/10/22 *Time: 08:45 Interval history: Surgery was accomplished yesterday. Went well. Patient this morning is awake, alert. Oriented x3. Has some pain with movement of the left leg but states it feels much better. No chest pain or shortness of air. Medical Exam Vital signs and Labs for Last 24 Hours: Vital Signs Temp Pulse Pulse Resp BP BP Pulse Ox 04/10/22 04:00 98.1 F 68 16 117/50 L 97 04/09/22 20:20 98.2 F 76 18 126/51 L 95 04/10/22 00:00 98.2 F 74 18 106/56 L 95 04/09/22 19:20 98.1 F 80 18 107/57 L 94 L 04/09/22 18:20 98.5 F 72 16 118/64 99 04/09/22 17:20 97.9 F 74 17 112/63 97 04/09/22 16:20 98.6 F 75 16 114/64 97 04/09/22 15:50 98.6 F 79 16 112/61 98 04/09/22 15:20 98.7 F 74 16 112/55 L 98 04/09/22 14:50 98.6 F 77 16 113/58 L 97 04/09/22 14:20 98.5 F 76 18 117/55 L 98 04/09/22 14:05 98.6 F 77 17 122/57 L 97 04/09/22 13:50 98.7 F 80 17 106/50 L 93 L 04/09/22 13:35 98.6 F 83 17 105/71 L 92 L 04/09/22 13:10 83 18 116/64 96 04/09/22 12:50 86 16 142/67 H 96 04/09/22 13:00 85 16 132/62 96 04/09/22 12:40 100.0 F H 85 15 134/77 94 L 04/09/22 12:45 99.1 F 94 H 12 134/77 Intake and Output 04/09/22 04/10/22 04/10/22 19:59 03:59 11:59 Intake Total 840 / 840 Output Total 0 / 550 0 / 550 550 / 550 Balance 840 / 290 0 / 290 -550 / 290 Intake: Intake, Oral Amount 240 / 240 Intake, Total IV Amount 600 / 600 Output: Output, Urine Amount 0 / 550 0 / 550 550 / 550 Other: Number of Unmeasured Voids 0 0 0 Weight 184 lb Patient Weight 04/10/22 11:59 Weight 184 lb Laboratory Results - last 24 hr 04/10/22 07:55: WBC 8.1 D, RBC 3.23 L D, Hgb 9.6 L, Hct 30.9 L, MCV 95.9, MCH 29.7, MCHC 30.9 L, RDW 13.7, Plt Count 154 D, MPV 9.6, Neut % (Auto) 71.4, Lymph % (Auto) 21.7, [place] % (Auto) 5.4, Eos % (Auto) 1.2, Baso % (Auto) 0.4, Neut # (Auto) 5.8, Lymph # (Auto) 1.8, [place] # (Auto) 0.4, Eos # (Auto) 0.1, Baso # (Auto) 0.0 I & O for Labs for Last 24 Hours: Intake & Output 04/07/22 04/08/22 04/09/22 04/10/22 11:59 11:59 11:59 11:59 Intake Total 428 / 428 840 / 840 Output Total 350 / 350 550 / 550 Balance 78 / 78 290 / 290 Weight 174 lb 3 oz 184 lb Comment:: Legs now of equal length. Feet are warm and well-perfused bilaterally. Heart rate regular. Lungs clear. Alert and oriented. Assessment and Plan *Assessment and plan (1) Closed intertrochanteric fracture of left femur: Status: Acute Category: Medical Code(s): S72.142A - Displaced intertrochanteric fracture of left femur, initial encounter for closed fracture (2) Hypothyroid: Status: Acute Category: Medical Code(s): E03.9 - Hypothyroidism, unspecified (3) COPD (chronic obstructive pulmonary disease): Status: Acute Category: Medical Code(s): J44.9 - Chronic obstructive pulmonary disease, unspecified Plan Status post ORIF of hip. Doing well. Continue current medications, pain control, PT and OT evaluation today. Care management consult for skilled care for rehab. Otherwise medically stable at this point.
--- NOTE | 2022-04-10 09:01 | SW/DCPLANNER ---
Addendum entered by Alexa Chan 04/11/22 08:43: The plan for this patient is to discharge to [facility] level of care today. Barbara has stated that patient will not require a COVID swab prior to discharge. Addendum entered by Alexa Chan 04/10/22 12:34: Barbara craig/ [facility] stated that she can accept this patient for tomorrow. I will update MD and family. Original Note: Patient information has been faxed to [facility] per family request. Patient could be ready for discharge tomorrow pending no setbacks. Barbara is currently reviewing patient information and will evaluate patient on campus this morning.
[2022-04-10 10:48] VITALS: BMI 30.6
--- NOTE | 2022-04-10 10:50 | HMH.PTEV ---
Physical Therapy Evaluation Rehab PT IP Evaluation Start: 04/09/22 12:49 Freq: ONCE Status: Active Protocol: Document 04/10/22 09:00 PHORCHUCK (Rec: 04/10/22 10:50 PHORNE [id number]) Subjective/History History History 72 yowf adm to [facility] after fall at home with resulting L hip fx, now S/P L femur IMN. She reports she lives with family, 1 step to enter the home, She is independent with all mobility at baseline. Subjective Subjective Pt c/o pain in the L LE with all movement. Rehab PT IP Eval Objective Appearance Patient Behavior Appropriate Patient Orientation Person,Place,Time Difficulty following instructions none Speech Pattern Clear Ambulation Patient Able to Ambulate No Balance Ability to Arise Able, uses arms to help Sitting Balance Steady, safe Standing Balance Steady, wide stance Dynamic Sitting Balance Ability Fair Dynamic Standing Balance Ability Poor Transfers Bed Transfer Ability Maximum x 1 (75% assist) Chair Transfer Ability Maximum x 1 (75% assist) Sit to Stand Bed Transfer Ability Maximum x 1 (75% assist) Sit to Stand Chair Transfer Ability Maximum x 1 (75% assist) ROM All Extremities PT ROM Status WFL MMT LLE PT MMT ABN Abnormal MMT Grade 2/5 throughout Rehab PT IP prob,goals,plan Problems Date of Evaluation: 04/10/22 PT IP Problems Bed Mobility,Transfers,Gait Rehab Potential Rehab Potential Good Plan PT Intervention Plan Bed Mobility,Transfers,Gait, Self care,Therapeutic Exercise PT Plan Frequency BID Duration LOS Discharge Goals Bed Transfer Ability Moderate x 1 (50% assist) Sit to Stand Chair Transfer Ability Moderate x 1 (50% assist) Ambulation Assistive Device Rolling Walker Ambulation Distance (feet) 5 Discharge Plan PT Discharge Plan Pt is currently most appropriate for rehab placement once medically stable for d/c. G -code Required No Eval Complexity Eval Charge Codes 48569 - Moderate Complexity PHYSICIAN CERTIFICATION: I certify the specified therapy services for Kathy Best are required, authorized, and reviewed every 30 days.
[2022-04-10 11:48] VITALS: BP 117/49; PULSE 69; RESP 16; TEMP 36.8; O2SAT 94
--- NOTE | 2022-04-10 12:50 | EXP.ORTH.PN ---
Subjective *Date: 04/10/22 *Time: 09:00 Interval history: Mrs. Best is a 72-year-old female who underwent a left hip cephalomedullary nail fixation performed by Dr. Vasquez yesterday 04/09/2022. Today the patient is postop day #1. This morning she is sitting comfortably at the edge of the bed side, physical therapy is present. She reports left hip pain as to be expected but states that it has been well controlled with as needed pain medication and rest. No history of any distal tingling/numbness, fevers, chills, or rigors. She denies any other symptoms or concerns at this time. Ortho Exam (Inpt) Vital signs and Labs for Last 24 Hours: Temp Pulse Resp BP Pulse Ox 98.2 F 69 16 117/49 L 94 L 04/10/22 11:48 04/10/22 11:48 04/10/22 11:48 04/10/22 11:48 04/10/22 11:48 Laboratory Results - last 24 hr 04/10/22 07:55: WBC 8.1 D, RBC 3.23 L D, Hgb 9.6 L, Hct 30.9 L, MCV 95.9, MCH 29.7, MCHC 30.9 L, RDW 13.7, Plt Count 154 D, MPV 9.6, Neut % (Auto) 71.4, Lymph % (Auto) 21.7, [place] % (Auto) 5.4, Eos % (Auto) 1.2, Baso % (Auto) 0.4, Neut # (Auto) 5.8, Lymph # (Auto) 1.8, [place] # (Auto) 0.4, Eos # (Auto) 0.1, Baso # (Auto) 0.0 I & O for Labs for Last 24 Hours: Intake & Output 04/07/22 04/08/22 04/09/22 04/10/22 23:59 23:59 23:59 23:59 Intake Total 1268 / 1268 120 / 120 Output Total 0 / 0 350 / 350 850 / 850 Balance 0 / 0 918 / 918 -730 / -730 Weight 173 lb 3 oz 174 lb 3 oz 183 lb 13.848 oz Head: Present normocephalic and atraumatic Eyes: Present as per HPI ENT: Present normal exam Neck: Present normal inspection, full ROM and trachea midline; Absent lymphadenopathy Respiratory: Present normal respiratory effort, able to speak in complete sentences and symmetric chest movement; Absent accessory muscle use Cardiac: Present Reg Rate and Rhythm GI: Present soft; Absent tenderness Comment:: Upon examination the lower extremities: The limb lengths are grossly equal. Dressings present over the left hip are clean, dry, and intact. The left hip and proximal femur are tender to palpation. Attempted movements of the left hip are somewhat painful. Thigh and calf are soft and nontender; Homans' sign is negative. No clinical evidence of DVT or compartment syndrome noted. Posterior tibial pulse 1+; cap refill is brisk. Sensation to light touch is grossly intact throughout. Patient is actively mobilizing the foot, ankle, and toes. Skin: Present intact, warm and normal turgor; Absent cyanosis, erythema, lesions or jaundice Neuro: Present Cranial Nerve 2-12 Intact, Motor Function Intact, Sensory Function Intact, alert, awake, oriented x 3, tone normal and moves all extremities; Absent Numbness or Tingling Assessment and Plan *Assessment and plan (1) Closed intertrochanteric fracture of left femur: Status: Acute Category: Medical Code(s): S72.142A - Displaced intertrochanteric fracture of left femur, initial encounter for closed fracture Plan I have discussed the clinical findings, diagnostic imaging, and progress with the patient. Overall she is doing well this morning from an orthopedic standpoint. Dressings present over the left hip are clean, dry, and intact. Plan to begin PT/OT today; patient may ambulate weightbearing as tolerated on the left lower extremity. Continue DVT prophylaxis with 325 mg aspirin p.o. twice daily for 6 weeks postoperatively. Continue rest, ice, activity modification, and pain medication as needed. All questions were answered and the patient verbalized a good understanding. Case management team coordinating discharge planning. Continue medical management as per primary care team.
[2022-04-10 16:00] VITALS: BP 121/51; PULSE 73; RESP 18; TEMP 36.9; O2SAT 99
--- NOTE | 2022-04-10 18:53 | PC.NURSE ---
pt has c/o pain x2 and had an episode of nausea, treated per mar. greenwood removed, using bsc, no problems noted. dsg to lt hip cdi. plan for snf tomorrow. pt has family at bedside. no concerns voiced at this time.
[2022-04-10 19:47] VITALS: BP 112/59; PULSE 76; RESP 18; TEMP 36.8; O2SAT 95
[2022-04-11 04:00] VITALS: BP 137/65; PULSE 83; RESP 18; TEMP 36.7; O2SAT 100; BMI 30.7
--- NOTE | 2022-04-11 04:55 | PC.NURSE ---
NO ACUTE CHANGES SINCE PREVIOUS ASSESSMENT. PT HAS RESTED WELL NO C/O PAIN SO FAR THIS SHIFT. PT HAS BEEN UP TO THE [facility] COMMODE WITH MAX 2 ASSIST AT THE BEGINNING OF THE SHIFT. PT STATED SHE WAS STIFF AND HAD NOT BEEN OUT OF BED FOR A WHILE. PT TOLERATED WELL. VSS. REMAINS AFEBRILE.
[2022-04-11 06:56] LABS: Basophils % 0.4 % (0.1-2.0); Eosinophils # 0.4 K/mm3 (0.0-0.4); Eosinophils % 4.3 % (0.1-12.0); Hematocrit 31.9 % (37.0-47.0); Hemoglobin 10.1 g/dL (12.2-16.2); Lymphocytes # 1.8 K/mm3 (0.7-4.5); Lymphocytes % 21.2 % (10-50); Mean Corpuscular HGB Conc 31.5 g/dL (31.8-35.4); Mean Corpuscular Hemoglobin 30.8 pg (27.0-31.2); Mean Corpuscular Volume 97.6 fl (81-99); Monocytes # 0.5 K/mm3 (0.1-1.0); Monocytes % 6.1 % (1.7-9.3); Neutrophils # 5.8 K/mm3 (1.8-7.8); Platelet Count 140 K/mm3 (142-424); Red Blood Count 3.27 M/mm3 (4.20-5.40); Red Cell Distribution Width 13.8 % (11.5-17.5); White Blood Count 8.6 K/mm3 (4.8-10.8)
[2022-04-11 06:59] LABS: Chloride 110 mmol/L (98-107); Potassium 4.3 mmoL/L (3.5-5.1); Sodium 141 mmol/L (136-145)
[2022-04-11 07:02] LABS: Anion Gap 4.3 mEq/L (5-15); Blood Urea Nitrogen 8 mg/dl (7-17); Calcium 7.9 mg/dl (8.4-10.2); Carbon Dioxide 31 mmol/L (22.0-30.0); Creatinine Clearance Estimated 69 mL/min (50-200); Estimated Glomerular Filt Rate 99 ml/min (>60); GFR (African American) 120 ML/MIN (>60); Glucose 107 mg/dl (74-100)
[2022-04-11 07:59] VITALS: BP 134/56; PULSE 79; RESP 16; TEMP 36.9; O2SAT 98
--- NOTE | 2022-04-11 08:34 | EXP.DC.SUM ---
General Admission date:: 04/08/22 Discharge date: 04/11/22 HPI HPI HPI: 72-year-old female who has a history of lung cancer, status post resection and treatment, currently followed by oncology, also history of diastolic CHF but euvolemic and with good activity levels, who was sitting on her commode for quite a long time apparently reading today and when she try to get out of her legs and becoming then she fell, striking her left pelvis and hip on the floor. She was unable to get up, her family later found her. Brought her to the ER. She was found to have a comminuted, displaced fracture of the left intertrochanteric portion of the femoral neck and was admitted to hospital for orthopedic consultation. Hospital Course Hospital Course Hospital Course: Patient was admitted, underwent definitive repair of her hip fracture and did well with this. She underwent PT evaluation. Labs were stable. She was deemed appropriate for long-term care rehab and she will be transferred to the [facility] today. Exam Data for Last 24 hours Vital signs and Labs for Last 24 Hours: Temp Pulse Resp BP Pulse Ox 98.5 F 79 16 134/56 L 98 04/11/22 07:59 04/11/22 07:59 04/11/22 07:59 04/11/22 07:59 04/11/22 07:59 Laboratory Results - last 24 hr 04/11/22 06:30: WBC 8.6, RBC 3.27 L, Hgb 10.1 L, Hct 31.9 L, MCV 97.6, MCH 30.8, MCHC 31.5 L, RDW 13.8, Plt Count 140 L, MPV 10.0, Neut % (Auto) 68.0, Lymph % (Auto) 21.2, [place] % (Auto) 6.1, Eos % (Auto) 4.3, Baso % (Auto) 0.4, Neut # (Auto) 5.8, Lymph # (Auto) 1.8, [place] # (Auto) 0.5, Eos # (Auto) 0.4, Baso # (Auto) 0.0 04/11/22 06:30: Sodium 141, Potassium 4.3, Chloride 110 H, Carbon Dioxide 31 H, Anion Gap 4.3 L, BUN 8 D, Creatinine 0.60, Estimated Creat Clear 69, Estimated GFR 99, Est GFR ( Amer) 120, Glucose 107 H, Calcium 7.9 L I & O for Last 24 hours: Intake & Output 04/08/22 04/09/22 04/10/22 04/11/22 11:59 11:59 11:59 11:59 Intake Total 428 / 428 960 / 960 1076 / 1076 Output Total 350 / 350 850 / 850 700 / 700 Balance 78 / 78 110 / 110 376 / 376 Weight 174 lb 3 oz 183 lb 13.848 oz 184 lb 6 oz Constitutional Constitutional: no acute distress *Routine HEENT Exam Head: Present normocephalic Eye: Present EOMI and PERRL ENT: Present mucous membranes moist *Routine Neck Exam Neck: Present supple; Absent lymphadenopathy *Routine Respiratory Exam Respiratory: Present CTA bilaterally *Routine Cardiovascular Exam Cardiovascular: Present RRR *Routine Abdominal Exam Abdominal: Present soft and normoactive bowel sounds; Absent tenderness *Routine Extremities Exam Extremities: Absent cyanosis, clubbing or edema Comments: Extremities warm and well-perfused. Range of motion on left limited by pain. Surgical dressing looks good. Pulses intact. *Routine Skin Exam Skin: Present warm; Absent rash *Routine Neurological Exam Neurological: Present alert and oriented X3 Comments: Somewhat sleepy this morning after a dose of IV morphine last night but when awakened is alert. Oriented x3, follows commands. Results Data Completed and Pending Labs on day of discharge: Labs from last 24 hours 04/11/22 04/11/22 06:30 06:30 WBC 8.6 RBC 3.27 L Hgb 10.1 L Hct 31.9 L MCV 97.6 MCH 30.8 MCHC 31.5 L RDW 13.8 Plt Count 140 L MPV 10.0 Neut % (Auto) 68.0 Lymph % (Auto) 21.2 [place] % (Auto) 6.1 Eos % (Auto) 4.3 Baso % (Auto) 0.4 Neut # (Auto) 5.8 Lymph # (Auto) 1.8 [place] # (Auto) 0.5 Eos # (Auto) 0.4 Baso # (Auto) 0.0 Sodium 141 Potassium 4.3 Chloride 110 H Carbon Dioxide 31 H Anion Gap 4.3 L BUN 8 D Creatinine 0.60 Estimated Creat Clear 69 Estimated GFR 99 Est GFR ( Amer) 120 Glucose 107 H Calcium 7.9 L DS: Diagnosis Discharge Diagnosis (1) Closed intertrochanteric fracture of left femur: Status: Acute Meds Home Medications and Allergies Home Medications Medication In
--- NOTE | 2022-04-11 09:33 | EXP.ORTH.PN ---
Subjective *Date: 04/11/22 *Time: 11:43 Interval history: Mrs. Best is a 72-year-old female who underwent a left hip cephalomedullary nail fixation performed by Dr. Vasquez on 04/09/2022. Today the patient is postop day #2. This morning she is lying comfortably in bed. She reports left hip pain as to be expected. She is confused and unable to answer my questions appropriately, nursing staff and the patient's son who is present at the bedside report that she recently received IV morphine which they believe is contributing to her confusion. No history of any distal tingling/numbness, fevers, chills, or rigors. She denies any other symptoms or concerns at this time. Ortho Exam (Inpt) Vital signs and Labs for Last 24 Hours: Temp Pulse Resp BP Pulse Ox 98.5 F 79 16 134/56 L 98 04/11/22 07:59 04/11/22 07:59 04/11/22 07:59 04/11/22 07:59 04/11/22 07:59 Laboratory Results - last 24 hr 04/11/22 06:30: WBC 8.6, RBC 3.27 L, Hgb 10.1 L, Hct 31.9 L, MCV 97.6, MCH 30.8, MCHC 31.5 L, RDW 13.8, Plt Count 140 L, MPV 10.0, Neut % (Auto) 68.0, Lymph % (Auto) 21.2, [place] % (Auto) 6.1, Eos % (Auto) 4.3, Baso % (Auto) 0.4, Neut # (Auto) 5.8, Lymph # (Auto) 1.8, [place] # (Auto) 0.5, Eos # (Auto) 0.4, Baso # (Auto) 0.0 04/11/22 06:30: Sodium 141, Potassium 4.3, Chloride 110 H, Carbon Dioxide 31 H, Anion Gap 4.3 L, BUN 8 D, Creatinine 0.60, Estimated Creat Clear 69, Estimated GFR 99, Est GFR ( Amer) 120, Glucose 107 H, Calcium 7.9 L I & O for Labs for Last 24 Hours: Intake & Output 04/08/22 04/09/22 04/10/22 04/11/22 23:59 23:59 23:59 23:59 Intake Total 1268 / 1268 1076 / 1076 120 / 120 Output Total 0 / 0 350 / 350 1550 / 1550 Balance 0 / 0 918 / 918 -474 / -474 120 / 120 Weight 173 lb 3 oz 174 lb 3 oz 183 lb 13.848 oz 184 lb 6 oz Head: Present normocephalic and atraumatic Eyes: Present as per HPI ENT: Present normal exam Neck: Present normal inspection, full ROM and trachea midline; Absent lymphadenopathy Respiratory: Present normal respiratory effort, able to speak in complete sentences and symmetric chest movement; Absent accessory muscle use Cardiac: Present Reg Rate and Rhythm GI: Present soft; Absent tenderness Comment:: Upon examination the lower extremities: The limb lengths are grossly equal. Dressings present over the left hip are clean, dry, and intact. Out of the dressings, the surgical incisions appear healthy and are healing well. No erythema, induration, bleeding, purulent drainage, or other signs of infection noted. There are surgical kaur in place, wound edges are well approximated The left hip and proximal femur are tender to palpation. Attempted movements of the left hip are somewhat painful. Thigh and calf are soft and nontender; Homans' sign is negative. No clinical evidence of DVT or compartment syndrome noted. Posterior tibial pulse 1+; cap refill is brisk. Sensation to light touch is grossly intact throughout. Patient is actively mobilizing the foot, ankle, and toes. Skin: Present intact, warm and normal turgor; Absent cyanosis, erythema, lesions or jaundice Neuro: Present Cranial Nerve 2-12 Intact, Motor Function Intact, Sensory Function Intact, alert, awake, oriented x 3, tone normal and moves all extremities; Absent Numbness or Tingling Assessment and Plan *Assessment and plan (1) Closed intertrochanteric fracture of left femur: Status: Acute Category: Medical Code(s): S72.142A - Displaced intertrochanteric fracture of left femur, initial encounter for closed fracture Plan I have discussed the clinical findings, diagnostic imaging, and progress with the patient and her son. Overall she is doing well this morning from an orthopedic standpoint. Dressings present over the left hip are clean, dry, and intact. I have removed the surgical dressings and reapplied sterile bordered gauze dressings over the incisions. Plan to continue PT/OT; patient may ambulate weightbearing as tolerated on th
--- NOTE | 2022-04-11 09:51 | EXP.ANES.II ---
[facility] Anesthesia Record Part II Anesthesia Record Part II Discharge Time: 13:20 Destination: floor PACU nurse assessment reviewed?: Yes Patient Condition:: Good Anesthesia Complications:: None Swallowing reflex intact?: Yes Cyanosis?: No Blood Pressure: 84/49 Pulse Rate: 78 Temperature: 97.6 F Mental Status: Alert & Oriented Pain level:: 0 Nausea and/or vomitting:: None Intake, IV Amount: 1,500
[2022-04-11 09:53] VITALS: BP 84/49; PULSE 78; TEMP 36.4
--- NOTE | 2022-04-12 13:31 | CARE MANAGER ---
Spoke with patient nurse at [facility], no issues noted.
== END 2022-04-11 11:35 | DRG 482 ==
LOC: ER 17:54 → 2ND 18:11
PROVIDERS: Orthopaedic Surgery; Admitting Provider Internal Medicine Adolescent Medicine; Emergency Provider Emergency Medicine; PCP Internal Medicine Adolescent Medicine; Visit Provider Internal Medicine Adolescent Medicine
PROC: 0QS736Z Reposition Left Upper Femur with Intramedullary Internal Fixation Device, Percutaneous Approach (ICD-10-PCS; principal; 2022-04-09 11:00)
DX: S72.142A Displaced intertrochanteric fracture of left femur, initial encounter for closed fracture (principal); Z85.41 Personal history of malignant neoplasm of cervix uteri; J43.9 Emphysema, unspecified; E03.9 Hypothyroidism, unspecified; Z85.118 Personal history of other malignant neoplasm of bronchus and lung
CPT/HCPCS: 27240; 36415; 51702; 71045; 72131; 72170; 73502; 73700; 76000; 80048; 80053; 81001; 82550; 85025; 93005; 97162; 97530; 99285; C1713; C1769; C1776; C9803; J2405; U0003; U0005

== ENCOUNTER → 2022-04-27 10:22 | Outpatient (CLI) | payer MEDICARE, OTHER, SELFPAY ==
--- NOTE | 2022-04-27 10:27 | XR_ITS ---
FINAL REPORT CLINICAL HISTORY: hip fracture F/U COMPARISON: 04/08/2022 FINDINGS: LEFT HIP: Two views of the left hip demonstrate postoperative changes from ORIF of comminuted intertrochanteric fracture. Femoral head is properly located. There is mild degenerative change of the hip. There are moderate degenerative changes of the lower lumbar spine. No soft tissue abnormality is seen. IMPRESSION: Interval postoperative changes of ORIF proximal femoral fracture. Reviewed, Interpreted and Dictated by Cristi Toure III, MD Transcribed by Helen Kruse Authenticated and [facility]
== END ==
PROVIDERS: PCP Internal Medicine Adolescent Medicine; Visit Provider Orthopaedic Surgery
DX: S72.002A Fracture of unspecified part of neck of left femur, initial encounter for closed fracture (principal)
CPT/HCPCS: 73502

== ENCOUNTER → 2022-07-20 14:01 | Outpatient (CLI) | payer MEDICARE, OTHER, SELFPAY ==
--- NOTE | 2022-07-20 14:07 | XR_ITS ---
FINAL REPORT CLINICAL HISTORY: left hip pain COMPARISON: 04/27/2022 FINDINGS: LEFT HIP 2 views were obtained. There is a comminuted left proximal femur intertrochanteric fracture with postoperative changes of ORIF. There is increased callus formation at the fracture site. There is no new fracture or dislocation. Moderate degenerative changes are seen in the lower lumbar spine. IMPRESSION: Postoperative changes of ORIF of left proximal femur fracture with increased callus formation. Reviewed, Interpreted and Dictated by Cristi Toure III, MD Transcribed by Stacey Burciaga Authenticated and [facility]
== END ==
PROVIDERS: PCP Internal Medicine Adolescent Medicine; Visit Provider Orthopaedic Surgery
DX: S72.142A Displaced intertrochanteric fracture of left femur, initial encounter for closed fracture (principal)
CPT/HCPCS: 73502

== ENCOUNTER → 2022-11-09 14:08 | Outpatient (CLI) | payer MEDICARE, OTHER, SELFPAY ==
--- NOTE | 2022-11-09 14:14 | XR_ITS ---
FINAL REPORT CLINICAL HISTORY: s/p lt hip pain COMPARISON: None FINDINGS: LEFT HIP: Two views of the left hip demonstrate no acute fracture or dislocation. There are postop changes in the proximal femur. There are bony fragments adjacent to the superior aspect of the greater trochanter. There is moderate degenerative change of the lower lumbar spine. IMPRESSION: No acute bony abnormality. Reviewed, Interpreted and Dictated by Cristi Toure III, MD Transcribed by Cherise Noble Authenticated and [facility]
== END ==
PROVIDERS: PCP Internal Medicine Adolescent Medicine; Visit Provider Orthopaedic Surgery
DX: S72.142A Displaced intertrochanteric fracture of left femur, initial encounter for closed fracture (principal)
CPT/HCPCS: 73502

== ENCOUNTER 2023-04-12 16:02 | Outpatient (CLI) | payer MEDICARE, OTHER, SELFPAY ==
[2023-04-12 16:25] LABS: Basophils % 0.4 % (0.1-2.0); Eosinophils # 0.3 K/mm3 (0.0-0.4); Eosinophils % 4.3 % (0.1-12.0); Hemoglobin 13.4 g/dL (12.2-16.2); Lymphocytes # 2.3 K/mm3 (0.7-4.5); Lymphocytes % 34.2 % (10-50); Mean Corpuscular HGB Conc 31.9 g/dL (31.8-35.4); Mean Corpuscular Hemoglobin 31.2 pg (27.0-31.2); Mean Platelet Volume 7.9 fl (7.4-10.4); Monocytes # 0.3 K/mm3 (0.1-1.0); Monocytes % 5.1 % (1.7-9.3); Neutrophils # 3.7 K/mm3 (1.8-7.8); Platelet Count 204 K/mm3 (142-424); Red Blood Count 4.28 M/mm3 (4.20-5.40); Red Cell Distribution Width 13.9 % (11.5-17.5); White Blood Count 6.6 K/mm3 (4.8-10.8)
[2023-04-12 18:50] LABS: Alanine Aminotransferase 17 U/L (12-78); Albumin Level 3.7 g/dl (3.5-5.0); Albumin/Globulin Ratio 1.4 (1.1-1.8); Alkaline Phosphatase 52 U/L (38-126); Anion Gap 8.2 mEq/L (5-15); Aspartate Amino Transferase 25 U/L (14-36); Bilirubin,Total 0.7 mg/dl (0.2-1.3); Blood Urea Nitrogen 14 mg/dl (7-17); Calcium 9.4 mg/dl (8.4-10.2); Carbon Dioxide 31 mmol/L (22.0-30.0); Chloride 104 mmol/L (98-107); Estimated Glomerular Filt Rate 82 ml/min (>60); GFR (African American) 100 ML/MIN (>60); Globulin 2.6 g/dL (1.3-3.2); Glucose 93 mg/dl (74-100); Potassium 4.2 mmoL/L (3.5-5.1); Sodium 139 mmol/L (136-145); Total Protein,Serum 6.3 g/dl (6.3-8.2)
== END 2023-04-12 23:59 ==
LOC: LAB 16:04
PROVIDERS: PCP Internal Medicine Adolescent Medicine; Visit Provider Internal Medicine Rheumatology
DX: M79.7 Fibromyalgia (principal); M81.0 Age-related osteoporosis without current pathological fracture; R53.83 Other fatigue
CPT/HCPCS: 36415; 80053; 85025

== ENCOUNTER 2023-07-24 09:31 | Outpatient (CLI) | payer MEDICARE, OTHER, SELFPAY ==
--- NOTE | 2023-07-24 09:35 | CA_ITS ---
FINAL REPORT TECHNIQUE: Color Doppler, duplex Doppler and bishop scale sonography of the bilateral neck vasculature was performed. Velocities were measured in the carotid arteries. Stenosis evaluation based on velocity criteria. CLINICAL HISTORY: DIZZINESS,HTN,HX LUNG CA COMPARISON: None FINDINGS: The peak systolic velocity of the right common carotid artery is 139 cm/sec and internal carotid artery 104 cm/sec. The diastolic velocity in the internal carotid artery is 31 cm/sec. The ICA/CCA ratio is 0.75. Visually, a small amount of plaque is seen. These findings are consistent with less than 50% stenosis. The external carotid artery is patent. The right vertebral artery is patent with antegrade flow. The peak systolic velocity of the left common carotid artery is 104 cm/sec and internal carotid artery 99 cm/sec. The diastolic velocity in the internal carotid artery is 23 cm/sec. The ICA/CCA ratio is 1.18. Visually, a small amount of plaque is seen. These findings are consistent with less than 50% stenosis. The external carotid artery is patent. The left vertebral artery is patent with antegrade flow. IMPRESSION: No evidence of significant carotid stenosis. Bilateral patent vertebral arteries. If indicated, CTA or MRA could further evaluate. Reviewed, Interpreted and Dictated by Brian Hilliard MD Transcribed by Cherise Noble Authenticated and [facility]
[2023-07-24 10:08] LABS: Basophils # 0.1 K/mm3 (0-0.2); Basophils % 0.9 % (0.1-2.0); Eosinophils # 0.3 K/mm3 (0.0-0.4); Hematocrit 36.7 % (37.0-47.0); Hemoglobin 11.6 g/dL (12.2-16.2); Lymphocytes % 35.2 % (10-50); Mean Corpuscular HGB Conc 31.6 g/dL (31.8-35.4); Mean Corpuscular Volume 98.2 fl (81-99); Monocytes # 0.3 K/mm3 (0.1-1.0); Monocytes % 5.9 % (1.7-9.3); Neutrophils % 52.1 % (37.0-80.0); Platelet Count 200 K/mm3 (142-424); Red Blood Count 3.74 M/mm3 (4.20-5.40); Red Cell Distribution Width 13.9 % (11.5-17.5); White Blood Count 5.8 K/mm3 (4.8-10.8)
[2023-07-24 10:26] LABS: Alanine Aminotransferase 15 U/L (12-78); Albumin Level 3.4 g/dl (3.5-5.0); Albumin/Globulin Ratio 1.3 (1.1-1.8); Alkaline Phosphatase 52 U/L (38-126); Anion Gap 12.1 mEq/L (5-15); Aspartate Amino Transferase 27 U/L (14-36); Bilirubin,Total 0.7 mg/dl (0.2-1.3); Blood Urea Nitrogen 23 mg/dl (7-17); Calcium 9.3 mg/dl (8.4-10.2); Carbon Dioxide 28 mmol/L (22.0-30.0); Chloride 105 mmol/L (98-107); Estimated Glomerular Filt Rate 34 ml/min (>60); GFR (African American) 41 ML/MIN (>60); Globulin 2.6 g/dL (1.3-3.2); Glucose 96 mg/dl (74-100); Potassium 4.1 mmoL/L (3.5-5.1); Sodium 141 mmol/L (136-145)
[2023-07-24 10:59] LABS: Thyroid Stimulating Hormone 0.07 uIU/mL (0.465-4.68)
[2023-07-24 11:17] LABS: Vitamin B12 169 pg/mL (239-931)
[2023-07-24 11:26] LABS: Hemoglobin A1C 5.4 % (4.0-6.0)
== END 2023-07-24 23:59 | disposition home or self-care (01) ==
LOC: RT 09:32
PROVIDERS: PCP Nurse Practitioner Family; Visit Provider Nurse Practitioner Family
DX: R42 Dizziness and giddiness (principal); R51.9 Headache, unspecified; Z79.899 Other long term (current) drug therapy; Z85.118 Personal history of other malignant neoplasm of bronchus and lung
CPT/HCPCS: 36415; 80053; 82607; 83036; 84443; 85025; 93880

== ENCOUNTER 2023-08-02 11:04 | Outpatient (CLI) | payer MEDICARE, OTHER, SELFPAY ==
--- NOTE | 2023-08-02 11:08 | MR_ITS ---
FINAL REPORT CLINICAL HISTORY: HISTORY OF LUNG CANCER. HEADACHES. DIZZINESS COMPARISON: 09/16/2021 FINDINGS: Multi planar MR imaging was obtained through the brain without contrast. The midline structures appear intact. There is no evidence of Chiari malformation. There is mild atrophy. There are moderate changes of chronic microvascular ischemia in the periventricular white matter. This appears more evident than on the previous exam. On diffusion-weighted images there is no evidence of restricted diffusion. The visualized paranasal sinuses demonstrate normal signal voids. The seventh and eighth nerve root complexes are intact. IMPRESSION: No acute intracranial abnormalities. Changes of chronic microvascular ischemia. Reviewed, Interpreted and Dictated by Brian Hilliard MD Transcribed by Stacey Burciaga Authenticated and [facility]
== END 2023-08-02 23:59 | disposition home or self-care (01) ==
LOC: RAD 11:04
PROVIDERS: PCP Nurse Practitioner Family; Visit Provider Nurse Practitioner Family
DX: R42 Dizziness and giddiness (principal); R51.9 Headache, unspecified; Z85.118 Personal history of other malignant neoplasm of bronchus and lung
CPT/HCPCS: 70551

== ENCOUNTER 2023-11-07 15:15 | Outpatient (CLI) | payer MEDICARE, OTHER, SELFPAY ==
--- NOTE | 2023-11-07 15:21 | XR_ITS ---
FINAL REPORT TECHNIQUE: Bone densitometry calculations of the lumbar spine and left hip were obtained. CLINICAL HISTORY: SCREENING COMPARISON: None FINDINGS: Using L1-4, the bone mineral density of the spine is 1.100 g/cm2, corresponding to T-score of 0.5. Using the right forearm, the bone mineral density of the midportion is 0.378 g/cm2, corresponding to a T-score of -4.2. Using the right hip, the bone mineral density of the femoral neck is 0.543 g/cm?, corresponding to a T-score of -2.8. NOTE: T-score: Standard deviation compared with peak bone mass of young adult mean. *Following the recommendations of the International Society of Bone Densitometry, classification of hip BMD is based on the lower of two T-scores; total hip or femoral neck. IMPRESSION: Osteoporosis: Lowest T-score is at or below -2.5. This patient's T-score meets the World Health Organization criteria for osteoporosis. The normal bone density of the lumbar spine is likely artificially elevated secondary to marked degenerative sclerotic changes in the lumbar spine. Reviewed, Interpreted and Dictated by Cristi Toure III, MD Transcribed by Cherise Noble Authenticated and [facility]
== END 2023-11-07 23:59 | disposition home or self-care (01) ==
LOC: RAD 15:17
PROVIDERS: PCP Internal Medicine Adolescent Medicine; Visit Provider Nurse Practitioner Family
DX: M81.0 Age-related osteoporosis without current pathological fracture (principal)
CPT/HCPCS: 77080

== ENCOUNTER 2023-11-19 11:18 | Outpatient (POV) | payer MEDICARE, OTHER, SELFPAY ==
[2023-11-19 11:33] VITALS: BP 114/54; PULSE 64; RESP 18; O2SAT 96; BMI 25.7
--- NOTE | 2023-11-19 12:40 | A.OFFVIS_ITS ---
HPI Data of Consult Patient: new to practice Consult date: 11/19/23 Requesting Physician: Aishwarya Vasquez APRN Primary Care Provider: Fernando Fernandez MD Consult Narrative Reason for consult: Left hip pain History of present illness: Ms. Best is a 73 year old female who presents today as a new patient. She is a referral from [facility]. Today she rates her pain a 10 out of 10. Patient states she has pain throughout her left hip that is been going on since she fractured this joint 2 years ago. Patient does state that she ended up having surgery with hardware placed by Dr. Zackery Vasquez here at [facility]. Patient states that the pain however has still been a constant aching, throbbing sensation with sharp shooting pains that is never gotten any better. Patient feels like it feels like it did when she initially fractured it. Patient states that she did have updated imaging done and that there was 1 screw that seem to be too long and was possibly pushing up against the nerve. Patient states that she had been back to Dr. Vasquez's office however he was not offering for her to have additional surgery to change out the screws. Patient states she is very frustrated and that she is very limited in her mobility now. Patient states that she has had to rely on a walker the full 2 years and that she cannot do any activities of daily living due to the pain such as cooking or cleaning. Patient states that she would like to travel and that she is not able to even do this. Patient does state that she has been diagnosed with Alzheimer's and that she has things she would like to do before it gets bad. Patient is interested in any help we may be able to provide. She does also state that she feels like she has more low back pain due to the way she now walks. Patient has tried oral medications along with heat and ice and topicals with no additional changes. Patient has also been through physical therapy and has been given 2 injections however she is unsure what specifically they were. Patient states that she does see an arthritis center in [place] and that she is going to be asking them for a referral to a different orthopedic provider. She is prescribed gabapentin and methocarbamol from outside providers. Her Luis has been reviewed and is appropriate. CC: Aishwarya Vasquez APRN [facility] Disclaimer: The information contained in this section may have been updated after the patient was seen, as this information can be updated by other users. Medical History Cervical cancer Chronic pain COPD (chronic obstructive pulmonary disease) Emphysema lung Glaucoma Hypothyroid Lung cancer Surgical History History of appendectomy History of bowel resection Hx of cholecystectomy Family History Other AAA (abdominal aortic aneurysm) COPD (chronic obstructive pulmonary disease) Cancer Diabetes High cholesterol Hypertension Stroke Social History (Updated 11/19/23 @ 11:58 by Sonal Humphrey RN) Smoking Status: Never smoker alcohol intake: never counseling provided: none substance use type: denies use current occupational status: retired Travel in the last 8 weeks: None household members: family housing: house marital status: number of children: 2 number of grandchildren: 5 caffeine: No Review of Systems Review of Systems Review of systems:: pertinent systems reviewed and negative unless documented below Review of systems (narrative): Review of Systems: General: No recent weight changes, no fever, no sleep disturbances Respiratory: No cough, no shortness of air, no recurring pulmonary infections Cardiovascular/peripheral vascular: No chest pain, no palpitations, no edema, no shortness of breath Gastrointestinal: No new onset incontinence, normal bowel movements reported Genitourinary: No new onset incontinence Musculoskeletal: Left hip pain, low back pain Psychiatric: [Normal mood/affect] Neurological: [Denies weakness in extremities], [denies balance issues] Meds Home Medications and Allergies Home Medications ?Medication ?Instructions ?Recorded ?Confirmed ?Type albuterol sulfate 90 mcg/actuation 2 puff inhalation QIDP PRN 08/01/17 11/19/23 History aerosol inhaler (Ventolin HFA) Shortness Of Breath ibuprofen 800 mg tablet 800 mg PO TID MILD TO MODERATE PAIN 08/01/17 11/19/23 History latanoprost 0.005 % eye drops 1 drp Eye-Both QPM Glaucoma 08/01/17 11/19/23 History omeprazole 20 mg capsule,delayed 20 mg PO DAILY Reflux/Acid reflux 08/01/17 11/19/23 History release trazodone 100 mg tablet 100 mg PO HS sleep 08/01/17 11/19/23 History albuterol sulfate 1.25 mg/3 mL 1.25 mg inhalation Q4HP PRN 08/20/17 11/19/23 History solution for nebulization breathing cholecalciferol (vitamin D3) 25 2,000 unit PO DAILY Supplement 12/14/17 11/19/23 History mcg (1,000 unit) chewable tablet fluticasone fur. 100 mcg-umeclid 1 inh inhalation DAILY COPD 04/08/22 11/19/23 History 62.5 mcg-vilant 25 mcg inhalat.powder (Trelegy Ellipta) diclofenac sodium 1 % topical gel 2 g topical QID Arthritis 04/09/22 11/19/23 History levothyroxine 100 mcg tablet 100 mcg PO DAILYDM HYPOTHYROIDISM 04/09/22 11/19/23 History tolterodine 4 mg capsule,extended 4 mg PO PM URINARY FREQUENCY 04/09/22 11/19/23 History release 24 hr aspirin 325 mg capsule 325 mg PO BID 30 days #60 caps 04/11/22 11/19/23 Rx gabapentin 300 mg capsule 300 mg PO TID NEUROPATHY #90 caps 04/11/22 11/19/23 Rx hydrocodone 5 mg-acetaminophen 325 1 tab PO Q6H PRN pain #30 tabs 04/11/22 11/19/23 Rx mg tablet New Prescriptions to Start Prescriptions: Allergies Allergy/AdvReac Type Severity Reaction Status Date / Time Sulfa (Sulfonamide Allergy Unknown Verified 11/09/22 14:57 Antibiotics) [SULFA (SULFONAMIDE ANTIBIOTICS)] Objective Vital signs: Pulse Resp BP Pulse Ox O2 Del Method 64 18 114/54 L 96 Room Air 11/19/23 11:33 11/19/23 11:33 11/19/23 11:33 11/19/23 11:33 11/19/23 11:33 Narrative: Physical Exam: General: Alert and oriented x3, no acute distress, pleasant and cooperative Lungs: Respirations even and unlabored, symmetrical chest expansion Eyes: PERRL Musculoskeletal: Flexion and extension of left hip somewhat guarded secondary to pain, [antalgic gait noted] Neurological: Speech clear, no gross sensory deficit Additional findings Additional findings: FINDINGS: LEFT HIP: Two views of the left hip demonstrate no acute fracture or dislocation. There are postop changes in the proximal femur. There are bony fragments adjacent to the superior aspect of the greater trochanter. There is moderate degenerative change of the lower lumbar spine. IMPRESSION: No acute bony abnormality. Reviewed, Interpreted and Dictated by Cristi Toure III, MD Transcribed by Cherise Noble Authenticated and [facility] Assessment and Plan *Assessment and plan (1) Left hip pain: Status: Acute Category: Medical Code(s): M25.552 - Pain in left hip (2) Low back pain: Status: Acute Category: Medical Code(s): M54.50 - Low back pain, unspecified (3) Pain from implanted hardware: Status: Acute Category: Medical Code(s): T85.848A - Pain due to other internal prosthetic devices, implants and grafts, initial encounter Plan Patient is experiencing chronic pain throughout her left hip with limited range of motion. I did discuss with the patient that she may benefit from a left femoral nerve block. Risk and benefits were discussed with patient and she would like to proceed forward with this plan of care. Patient has tried and failed conservative treatment including physical therapy and continued at home stretching exercise for longer than 12 weeks. I will also order the patient a compounded cream. I did discuss with the patient that I will also send her for referral to Dr. Segun Chance for evaluation of the chronic left hip pain and painful hardware. We will look at ordering updated MRI without contrast of her left hip. Patient will be scheduled for a left femoral nerve block. I did already reach out to orthopedic provider and he did confirm that he does not have any contraindications to the injection. We will go ahead and get the patient scheduled and send her over for evaluation to his office. Patient has been instructed to contact the clinic with any concerns before the next appointment. Dr. Wong has reviewed this note and agrees with this plan of care. This note was dictated using voice recognition software and make contain errors or omissions. All injections are used with Lidocaine or Bupivacaine and Depo Medrol.
== END 2023-11-19 23:59 | disposition home or self-care (01) ==
LOC: SC.PAIN 11:21
PROVIDERS: PCP Internal Medicine Adolescent Medicine; Visit Provider Nurse Practitioner Family
DX: M25.552 Pain in left hip (principal); M54.50 Low back pain, unspecified; T85.848A Pain due to other internal prosthetic devices, implants and grafts, initial encounter; Z73.89 Other problems related to life management difficulty; Z79.899 Other long term (current) drug therapy
CPT/HCPCS: 99202; G0463

== ENCOUNTER 2023-12-04 10:46 | Day surgery (SDC) | payer MEDICARE, OTHER, SELFPAY ==
[2023-12-04 11:07] VITALS: BP 113/47; PULSE 80; RESP 16; TEMP 36.7; O2SAT 90; BMI 25.7
[2023-12-04] MEDS: methylPREDNISolone ACETATE 80MG/ML VIAL 80 MG (11:19)
[2023-12-04] MEDS: BUPIVACAINE 0.25% 10ML INJ 25 MG IJ (11:19)
[2023-12-04] MEDS: LIDOCAINE 1% 5ML PF VIAL 5 ML (11:19)
--- NOTE | 2023-12-04 11:24 | EXP.PAIN.PRO ---
Procedure Date: 12/04/23 Time: 11:10 Anesthesiologist:: Justino Evans CRNA Complications:: None Pre-procedure Diagnosis:: DJD left hip. Chronic left hip pain. Status post left hip fracture 2021 with lag screw fixation. Post-procedure Diagnosis:: Same. Indications for Procedure:: Patient is a very pleasant 73-year-old female who comes our clinic today for a left intra-articular hip injection of cortisone and local anesthetic. She describes left hip pain as constant, dull, aching. Essentially, pain started shortly after fixation of the left hip fracture. She rates her pain 7/10. She arrives on a walker today. Procedure Details:: Details of the procedure were explained to the patient. The patient was taken to procedure room placed in the supine position. The area over the left hip was cleaned using chlorhexidine as a cleansing solution. Using fluoroscopy guidance a 3 and half inch 22-gauge spinal needle was used to access the left hip joint without difficulty. After negative aspiration 3 cc of 1% lidocaine +3 cc of 0.25% Marcaine and 40 mg of Depo-Medrol was injected. Needle was withdrawn. Band-Aid applied. Patient tolerated procedure without difficulty. There are no complications. Plan and Disposition:: Patient was discharged without incident.
[2023-12-04 11:30] VITALS: BP 144/77; PULSE 66; RESP 18; O2SAT 96
== END 2023-12-04 11:33 | disposition home or self-care (01) ==
PROVIDERS: PCP Internal Medicine Adolescent Medicine; Visit Provider Nurse Anesthetist, Certified Registered
DX: M16.12 Unilateral primary osteoarthritis, left hip (principal); M25.552 Pain in left hip; G89.29 Other chronic pain; T84.84XD Pain due to internal orthopedic prosthetic devices, implants and grafts, subsequent encounter
CPT/HCPCS: 20610; 77002; J1010

== ENCOUNTER 2023-12-24 13:08 | Outpatient (CLI) | payer MEDICARE, OTHER, SELFPAY ==
--- NOTE | 2023-12-24 13:17 | MR_ITS ---
PROCEDURE INFORMATION: Exam: MR Left Lower Extremity Joint Without Contrast; Hip Exam date and time: 12/24/2023 1:27 PM Age: 73 years old Clinical indication: Pain; Hip; Left; Additional info: Left hip pain TECHNIQUE: Imaging protocol: Magnetic resonance imaging of the left lower extremity joint without contrast. Exam focused on the hip. COMPARISON: CT HIP LT WO CON 04/08/2022 4:44 PM FINDINGS: There is orthopedic hardware transfixing old intertrochanteric fracture left hip creating metallic artifact over the proximal femur limiting assessment of underlying osseous and soft tissue structures. There is a crescent-shaped bone lesion along the anterior margin of the femoral head extending to the articular margin not evident previously consistent with AVN. There is some accompanying fluid-like signal changes extending from the lesion into the lateral aspect of the femoral neck likely reactive in nature. There is no deformity of flattening of the femoral head. There are some scattered indistinct hypointense foci within both iliac bones most pronounced within the right iliac bone adjacent to the sacroiliac joint, nonspecific but raising concern for possibility of a bone metastasis. Soft tissues: There is minimal joint effusion within the left hip. Acetabular labrum are not well demonstrated but no abnormalities are appreciated. IMPRESSION: 1. 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 2. Internally fixed intertrochanteric fracture left hip with metallic artifacts somewhat limiting assessment of adjacent osseous structures. 3. Scattered indistinct nodular areas of signal alteration within the pelvis, nonspecific but needs follow-up to exclude small bone metastasis.
== END 2023-12-24 23:59 | disposition home or self-care (01) ==
LOC: RAD 13:08
PROVIDERS: PCP Internal Medicine Adolescent Medicine; Visit Provider Nurse Practitioner Family
DX: M25.552 Pain in left hip (principal)
CPT/HCPCS: 73721

== ENCOUNTER 2023-12-31 13:32 | Outpatient (POV) | payer MEDICARE, OTHER, SELFPAY ==
--- NOTE | 2023-12-31 14:45 | EXP.PAIN.SOA ---
[facility] Disclaimer: The information contained in this section may have been updated after the patient was seen, as this information can be updated by other users. Medical History Cervical cancer Chronic pain COPD (chronic obstructive pulmonary disease) Emphysema lung Glaucoma Hypothyroid Lung cancer Surgical History History of appendectomy History of bowel resection Hx of cholecystectomy Family History Other AAA (abdominal aortic aneurysm) COPD (chronic obstructive pulmonary disease) Cancer Diabetes High cholesterol Hypertension Stroke Social History Smoking Status: Never smoker alcohol intake: never counseling provided: none substance use type: denies use current occupational status: retired Travel in the last 8 weeks: None household members: family housing: house marital status: number of children: 2 number of grandchildren: 5 caffeine: No PM Subjective & Objective Subjective Subjective:: Patient is a pleasant 73-year-old female who presents today for follow-up of her left intra-articular hip injection on 12/04/2023. Today she rates her pain a 8 out of 10. She denies any new trauma or injury. Patient does state that the injections still never really seem to make much difference and that she continues to have the left hip as well as pelvic pain in general. Patient did talk to's on the regarding her updated imaging that did show possible bone metastasis. Patient does again state that she is scheduled for her PET scan on January 08 with her cancer doctor at . Patient states that she has not heard anything on her orthopedic consults that we sent at last visit. Patient does also state that the compounded cream made her very nauseous and she discontinued this. Her Luis has been reviewed and is appropriate. Review of Systems: General: No recent weight changes, no fever, no sleep disturbances Respiratory: No cough, no shortness of air, no recurring pulmonary infections Cardiovascular/peripheral vascular: No chest pain, no palpitations, no edema, no shortness of breath Gastrointestinal: No new onset incontinence, normal bowel movements reported Genitourinary: No new onset incontinence Musculoskeletal: Left hip pain, pelvic, groin pain Psychiatric: [Normal mood/affect] Neurological: [Denies weakness in extremities], [denies balance issues] Pain at rest (0-10 scale): 8 Objective Objective:: Physical Exam: General: Alert and oriented x3, no acute distress, pleasant and cooperative Lungs: Respirations even and unlabored, symmetrical chest expansion Eyes: PERRL Musculoskeletal: Flexion and extension of left hip somewhat guarded secondary to pain, [antalgic gait noted] Neurological: Speech clear, no gross sensory deficit Has patient had previous pain injection?: Yes Percent improvement in pain since last injection: Minimal Conservative treatment options previously tried: Home exercise plan Length of treatment: Longer than 12 weeks Meds Home Medications and Allergies Home Medications ?Medication ?Instructions ?Recorded ?Confirmed ?Type albuterol sulfate 90 mcg/actuation 2 puff inhalation QIDP PRN 08/01/17 12/04/23 History aerosol inhaler (Ventolin HFA) Shortness Of Breath ibuprofen 800 mg tablet 800 mg PO TID MILD TO MODERATE PAIN 08/01/17 12/04/23 History latanoprost 0.005 % eye drops 1 drp Eye-Both QPM Glaucoma 08/01/17 12/04/23 History omeprazole 20 mg capsule,delayed 20 mg PO DAILY Reflux/Acid reflux 08/01/17 12/04/23 History release trazodone 100 mg tablet 100 mg PO HS sleep 08/01/17 12/04/23 History albuterol sulfate 1.25 mg/3 mL 1.25 mg inhalation Q4HP PRN 08/20/17 12/04/23 History solution for nebulization breathing cholecalciferol (vitamin D3) 25 2,000 unit PO DAILY Supplement 12/14/17 12/04/23 History mcg (1,000 unit) chewable tablet fluticasone fur. 100 mcg-umeclid 1 inh inhalation DAILY COPD 04/08/22 12/04/23 History 62.5 mcg-vilant 25 mcg inhalat.powder (Trelegy Ellipta) diclofenac sodium 1 % topical gel 2 g topical QID Arthritis 04/09/22 12/04/23 History levothyroxine 100 mcg tablet 100 mcg PO DAILYDM HYPOTHYROIDISM 04/09/22 12/04/23 History tolterodine 4 mg capsule,extended 4 mg PO PM URINARY FREQUENCY 04/09/22 12/04/23 History release 24 hr aspirin 325 mg capsule 325 mg PO BID 30 days #60 caps 04/11/22 12/04/23 Rx gabapentin 300 mg capsule 300 mg PO TID NEUROPATHY #90 caps 04/11/22 12/04/23 Rx hydrocodone 5 mg-acetaminophen 325 1 tab PO Q6H PRN pain #30 tabs 04/11/22 12/04/23 Rx mg tablet New Prescriptions to Start Prescriptions: Allergies Allergy/AdvReac Type Severity Reaction Status Date / Time Sulfa (Sulfonamide Allergy Unknown Verified 11/09/22 14:57 Antibiotics) [SULFA (SULFONAMIDE ANTIBIOTICS)] Assessment and Plan *Assessment and plan (1) Left hip pain: Status: Acute Category: Medical Code(s): M25.552 - Pain in left hip Plan Patient was counseled due to everything going on that I would like to see how the PET scan goes before we try and do additional injections as well as see with the orthopedic provider is recommending. We will follow-up on the referral for this office. Patient will return to clinic in 1 month for reevaluation of symptoms and plan of care. Patient has been instructed to contact the clinic with any concerns before the next appointment. Dr. Wong has reviewed this note and agrees with this plan of care. This note was dictated using voice recognition software and make contain errors or omissions. All injections are used with Lidocaine or Bupivacaine and Depo Medrol.
[2023-12-31 14:53] VITALS: BP 106/72; PULSE 60; RESP 14; O2SAT 97; BMI 26.7
== END 2023-12-31 23:59 | disposition home or self-care (01) ==
LOC: SC.PAIN 13:34
PROVIDERS: PCP Internal Medicine Adolescent Medicine; Visit Provider Nurse Practitioner Family
DX: M25.552 Pain in left hip (principal)
CPT/HCPCS: 99212; G0463

== ENCOUNTER 2024-06-26 13:03 | Outpatient (CLI) | payer MEDICARE, OTHER, SELFPAY ==
--- OUTSIDE RECORDS SUMMARY | 2024-06-26 13:06 | XMS_ITS | Data Portability ---
Author Organization [facility] - Justino oliveira MD, Main Office Address [address] [place] [address] Care Team Providers Care Egyptologist Name Role Phone ROEL HUA Referring Provider CAROLE JEREZ Primary Care Provider Assessment No assessment recorded. Plan of Treatment Reminders Order Date Submit Date Provider Last Modified By Organization Details Last Modified Time Details Appointments None recorded. Lab None recorded. Referral None recorded. Procedures nerve conduction study/EMG (PROC) 2021 022 Justino Cason MD, [address], [place], [address], 10:27:12 Surgeries None recorded. Imaging MRI, cervical spine, w/o contrast 2021 022 [facility], [address], [place], [address], 09:11:29 Medication Orders butalbital- acetaminoph en-caffeine 50 mg-325 mg-40 mg tablet 2021 [id number], [address], [address], 12:37:27 Patient TargetsNo targets recorded. Patient Instructions Encounter Date Encounter Id Patient Instructions Last Modified By Organization Details Last Modified Time 10/11/2021 [id number] cervical spinal stenosis: care instructions Not available 10/11/2021 12:37:19 Finding has been discussed with the patient and her sister Opal in detail. EMG/NCV of both legs. MRI scan of the cervical spine. Fioricet for headache. I will see her back in follow-up. Not available 10/11/2021 13:00:22 10/28/2021 [id number] [facility] [email or web address] Not available 10/28/2021 11:26:22 10/28/2021 [id number] [facility] Not available 10/28/2021 12:03:36 Finding has been discussed with the patient and her sister Opal in detail. She is to call me in 1 month. If her symptom fails to improve, we will obtain MRI scan of the lumbar spine. Not available 10/28/2021 12:03:36 Reason for Referral None Reported. Results Created Date Observation Date Name Description Value Unit Range Abnormal Flag Note LastModifiedBy Organization Detail LastModifiedTime 10/26/1910/24/2021 MRI, cervi taty spine , w/o contr ast No observ ation record ed. [facility] (Scheduling) [address], [place], [address], 10/25/2021 12:31:33 10/29/1910/28/2021 nerve condu ction study /EMG (PROC ) No observ ation record ed. [facility] Justino Cason MD [address], [place], [address], 10/28/2021 12:16:54 Result Notes None recorded. Problems No Known Problems Procedures Surgical History Date Name Laterality Status Provider Name and Address Organization Details Recorded Time 10/29/19 NCV/EMG completed Av Cason MD 10/28/2021 11:25:53 excision of basal cell carcinoma completed Yue Cason MD 08/16/2021 10:37:44 Breast reduction completed Yue Cason MD 08/16/2021 10:37:58 cholecystectomy completed Yue Cason MD 10/11/2021 12:27:43 Imaging Results Imaging Date Name Status LastModified by Organiz ation Details LastModified Time 10/24/2021 MRI, cervical spine, w/o contrast completed [facility] (Scheduling) [address], [place], [address], 10/25/2021 12:31:33 10/28/2021 nerve conduction study/EMG (PROC) completed [facility] Justino Cason MD [address], [place], [address], 10/28/2021 12:16:54 Procedure Notes None recorded. Medical Equipment None Reported. Allergies Allergen ID Allergen Name Allergen Category Reaction Reaction Severity Criticality Documentation Date Start Date Code Code System Note Provider Name and Address Organization Details Recorded Time 6269 Substance with sulfonami de structure and antibacte rial mechanism of action (substanc e) medicatio n Not available Not available Not available 10/11/2021 11610 8003 SNOMED Not Available Not Available Not Available Medications Name Sig Start Date Stop Date Status Note LastModified by Organization Details LastModified Time latanoprost 0.005 % eye drops INSTILL 1 DROP INTO EACH EYE AT BEDTIME active Not Available Not Available No t Available methocarbam ol 500 mg tablet TAKE 1 TO 2 TABLETS BY MOUTH THREE TIMES DAILY NEEDED FOR SPASM active Not Available Not Available No t Available ibuprofen 800 mg tablet TAKE 1 TABLET BY MOUTH THREE TIMES DAILY WITH FOOD active Not Available Not Available No t Available albuterol sulfate 1.25 mg/3 mL solution for nebulizatio n USE 3 ML IN NEBULIZER EVERY 6 HOURS IF NEEDED FOR WHEEZING active Not Available Not Available No t Available alendronate 70 mg tablet TAKE 1 TABLET BY MOUTH ONCE A WEEK IN THE MORNING AT LEAST 30 MINUTES BEFORE FIRST FOOD, BEVERAGE, OR MEDICATIO N OF THE DAY 10/11 completed Not Available Not Available Not Available ciprofloxac in 500 mg tablet 10/11 completed Not Available Not Available Not Available Euthyrox 100 mcg tablet TAKE 1 TABLET BY MOUTH ONCE DAILY active Not Available Not Available No t Available butalbital- acetaminoph en-caffeine 50 mg-325 mg-40 mg tablet 1-2 tablets daily as needed for headache active Not Available Not Available No t Available Euthyrox 75 mcg tablet TAKE 1 TABLET BY MOUTH ONCE DAILY 10/11 completed Not Available Not Available Not Available trazodone 100 mg tablet TAKE 1 TABLET BY MOUTH AT BEDTIME active Not Available Not Available No t Available gabapentin 300 mg capsule TAKE 1 CAPSULE BY MOUTH THREE TIMES DAILY active Not Available Not Available No t Available omeprazole 20 mg capsule,del ayed release TAKE 1 CAPSULE BY MOUTH ONCE DAILY 30 MINUTES TO 1 HOUR BEFORE A MEAL active Not Available Not Available No t Available sertraline 50 mg tablet TAKE 1 TABLET BY MOUTH ONCE DAILY active Not Available Not Available No t Available Ventolin HFA 90 mcg/actuati on aerosol inhaler active Not Available Not Available Not Available diclofenac 1 % topical gel APPLY 2 GRAMS TOPICALLY 4 TIMES DAILY active Not Available Not Available No t Available Trelegy Ellipta 100 mcg-62.5 mcg-25 mcg powder for inhalation active Not Available Not Available N ot Available Vitals Date Recorded Body height Body mass index (BMI) Body weight Heart rate Respiratory rate Systolic blood pressure Diastolic blood pressure Provider Name and Address Organization Details Last Updated DateTime 2 167.64 cm 27.6 kg/m2 80363.3 g 78 /min 17 /min 138 mm[Hg] 85 mm[Hg] Justino Cason MD [address], [address] [address] 0[facility]RIS MD 2 12:55:42 Date Recorded Body height Provider Name an d Address Organization Details Last Updated DateTime 10/28/2021 167.64 cm Judy Aviles CHRIS Cason MD 10/28/2021 11:48:24 Date Recorded Body mass index (BMI) Body weight Heart rate Respiratory rate Systolic blood pressure Diastolic blood pressure Provider Name and Address Organization Details Last Updated DateTime 2 27.6 kg/m2 94319.3 g 79 /min 17 /min 132 mm[Hg] 77 mm[Hg] Justino Cason MD [address], [address], [address] 0CHRIS MD 2 12:01:11 Social History Question Answer Notes LastModified by Organizat ion Details LastModified Time Tobacco Smoking Status Former Smoker [place], [place] - Justino Cason MD 10/11/2021 12:27:21 Do You Have An Advance Directive? Yes Information n ot available 10/11/2021 What Is Your Level Of Alcohol Consumption? None Information not available 10/11/2021 In The 14 Days Before Symptom Onset, Have You Had Close Contact With A Laboratory-confirm ed COVID-19 While That Case Was Ill? No Information n ot available 10/11/2021 In The 14 Days Before Symptom Onset, Have You Had Close Contact With A Person Who Is Under Investigation For COVID-19 While That Person Was Ill? No Information not available 10/11/2021 Have You Been To An Area Known To Be High Risk For COVID-19? No Information not available 10/11/2021 What Was The Date Of Your Most Recent Tobacco Screening? 10/28/2021 [email or web address] Information not available 10/28/2021 Sex: Unknown Functional Status Question Answer Note LastModified by Organization D etails LastModified Time Are you able to walk? YESASSIST Information not available 10/11/2021 Mental Status None recorded. Family History Relationship Description Onset Age of this Age Resolved Age Notes LastModified by Organization Details LastModified Time Unspecified Relation Family history of malignant neoplasm Not available 2021 12:26:36 Unspecified Relation Dementia Not available 10/12/19 12:26:47 Unspecified Relation Diabetes mellitus Not available 2021 12:26:55 Unspecified Relation Parkinson's disease Not available 2021 12:27:07 Medical History Condition Response Diabetes Y Arthritis Y Depression Y Glaucoma Y Gynecological HistoryNo gynecological history recorded. Obstetrics History GPAL:G 0 P 0 0 0 0 Past Encounters Encounter ID Performer Location Encounter Start Date Encounter Closed Date Diagnosis/Indication Diagnosis SNOMED-CT Code Diagnosis ICD10 Code Diagnosis Note [id number] Justino Cason MD Main Office [address] [facility], [facility] [address] [place] [address] 10/11/2021 11:56:17 10/11/2021 12:42:09 Cervicogenic headache 209251716 G44.86 The patient is a 65-year-ol d white female. She has cervicogen ic headache. Spinal kevin nosis in cervical region 22290967 M48.02 I cannot exclude cervical spinal stenosis. Ataxic gait 89713667 R26 .0 She has ataxic gait and weakness in her left hip flexor. Peripheral neuropathy versus radiculopa thy needed to be excluded. [id number] [address] Main Office [address] [place] [address] 10/28/2021 10:51:39 10/28/2021 11:31:58 Lumbosacral radiculopathy 6687796 M54.17 Mild chronic left L5/S1, Mild chronic right L5 radiculopa thy. [id number] Justino Cason MD Main Office [address] [place] [address] 10/28/2021 11:47:27 10/28/2021 11:50:17 Cervicogenic headache 941326911 G44.86 The patient is a 65-year-ol d white female. She has cervicogen ic headache. Lumbosacra l radiculopathy 2086349 M54.17 Mild chronic left L5/S1, Mild chronic right L5 radiculopa thy. Health Concerns Section Related Observation LastModified by Organization Detai ls LastModified Time None Recorded Concern Status LastModified by Organization Details LastModified Time None Recorded Advance Directives Directive Y: Payers Encounter Date Sequence Insurance Name Policy Number Policy [place] Covered Member ID Naranjo Member ID Guarantor Name 10/11/2021 2 [facility] Kathy Best [id number] Kathy M Best 10/11/2021 1 [place] Kathy M Best [id number] Kathy M Best 10/28/2021 2 [facility] Kathy Best [id number] Kahty M Best 10/28/2021 1 [place] Kathy M Best [id number] Kathy M Best 10/28/2021 2 [facility] Kathy Best [id number] Kathy M Best 10/28/2021 1 [place] Kathy M Best [id number] Kathy M Best Notes Date Note Type Note Provider Name and Address Organization Details Recorded Time 10/11/2021 text/html Mrs. Best is a 71-year-old white female. She is accompanied by her sister Opal for consultation of headache, poor balance and tremor. Her daughter and grandson live with her. She has COPD. She uses portable oxygen. She uses a walker to ambulate. She has been treated for fibromyalgia. She is taking gabapentin 300 mg 3 times a day. She also takes methocarbamol 500 mg 3 times a day. She complains of neck pain and occipital headache. When she walks. She has a tendency to veer to the side. She had a history of lumbar spinal stenosis. She has seen Dr. Tamayo and he recommended no surgery. She complains of neck pain and numbness in the hands. She also noticed weakness in her left leg mostly in her left hip. She denies any diabetes. She has hypothyroidism. MD [address], [address], [address], [facility] Aditya Cason MD 10/11/2021 13:01:38 10/28/2021 text/html Mrs. Best is a 71-year-old white female. She has cervicogenic headache. MRI scan of the cervical spine showed degenerative disc disease. She reported improvement with Fioricet. She has difficulty with ambulation. She returned today for EMG NCV. She has bilateral lumbosacral polyradiculopathy. She uses a walker to ambulate. She returned today with her sister Opal for follow-up. She has been to Dr. Tamayo. He recommended no back surgery. MD [address], [facility] [address], [place], [address], CHRIS Cason MD 10/28/2021 12:04:15 OBGyn Episode No OBEpisode recorded.
--- OUTSIDE RECORDS SUMMARY | 2024-06-26 13:06 | XMS_ITS | Data Portability ---
Author Organization MARAH Huerat [place] [facility] Address [address] [place] [address] [address] [place] [address] Assessment No assessment recorded. Plan of Treatment Reminders Order Date Submit Date Provider Last Modified By Organization Details Last Modified Time Details Appointments None recorded. Lab CMP, serum or plasma 2018 019 [facility], [address] [place] [address], [id number], 9 13:19:15 TSH, serum or plasma 2018 019 [facility], [address] [place] [address], [id number], 9 13:12:14 T3, total, serum 2018 019 [facility], [address] [place] [address], [address], 9 13:05:34 T4, free, serum 2018 019 [facility], [address] [place] [address], [address], 9 13:05:32 magnesium, QN, serum or plasma 2018 019 [facility], [address] [place] [address], [address], 9 13:19:16 CK (creatine kinase), total, serum 2018 019 [facility], [address] [place] [address], [address], 9 13:19:13 CBC w/ auto diff 2018 019 [facility], [address] [place] [address], [address], 9 12:48:05 iron + total iron-magali ng capacity (TIBC), serum 2018 019 [facility], [address] [place] [address], [address], 9 13:19:17 cortisol, serum or plasma 2018 019 [facility], [address] [place] [address], [address], 9 13:03:14 Referral None recorded. Procedures None recorded. Surgeries None recorded. Imaging None recorded. Medication Orders None recorded. Patient TargetsNo targets recorded. Patient Instructions Encounter Date Encounter Id Patient Instructions Last Modified By Organization Details Last Modified Time 08/21/2018 [id number] hair loss from alopecia areata: care instructions wayoub Not available 08/21/2018 11:58:03 Reason for Referral None Reported. Results Created Date Observation Date Name Description Value Unit Range Abnormal Flag Note LastModifiedBy Organization Detail LastModifiedTime 08/22/1908/21/2018 CBC w/ auto diff white blood cells 6.3 K/uL 3.8-10 .8 normal Not Available [facility] [address] [place] [address], [id number], 08/21/2018 12:48:05 08/22/1908/21/2018 CBC w/ auto diff red blood cells 4.07 M/uL 3.80-5 .20 normal Not Available [facility] [address] [place] [address], [address], 08/21/2018 12:48:05 08/22/19 19 08/21/2018 CBC w/ auto diff hemoglobin 12.5 g/dL 12.0-1 6.0 normal Not Available [facility] [address] [place] [address], [address], 08/21/2018 12:48:05 08/22/19 19 08/21/2018 CBC w/ auto diff hematocrit 37.2 % 35.0-4 7.0 normal Not Available [facility] [address] [place] [address], [address], 08/21/2018 12:48:05 08/22/1908/21/2018 CBC w/ auto diff MCV 92 fL 80-100 normal Not Available [facility] [address] [place] [address], [address], 08/21/2018 12:48:05 08/22/1908/21/2018 CBC w/ auto diff MCH 31 pg 26-35 normal Not Available [facility] [address] [place] [address], [address], 08/21/2018 12:48:05 08/22/19 19 08/21/2018 CBC w/ auto diff MCHC 34 g/dL 32-36 normal Not Available [facility] [address] [place] [address], [address], 08/21/2018 12:48:05 08/22/19 19 08/21/2018 CBC w/ auto diff RDW 14.2 % 11.0-1 5.0 normal Not Available [facility] [address] [place] [address], [address], 08/21/2018 12:48:05 08/22/1908/21/2018 CBC w/ auto diff MPV 9.2 fL 6.2-10 .5 normal Not Available [facility] [address] [place] [address], [address], 08/21/2018 12:48:05 08/22/1908/21/2018 CBC w/ auto diff platelet count 191 K/uL 130-40 0 normal Not Available [facility] [address] [place] [address], [address], 08/21/2018 12:48:05 08/22/19 19 08/21/2018 CBC w/ auto diff neutrophil,a bsolute 3.7 K/uL 1.6-8. 4 normal Not Available [facility] [address] [place] [address], [address], 08/21/2018 12:48:05 08/22/1908/21/2018 CBC w/ auto diff lymphocyte,a bsolute 1.7 K/uL 0.4-5. 1 normal Not Available [facility] [address] [place] [address], [address], 08/21/2018 12:48:05 08/22/19 19 08/21/2018 CBC w/ auto diff monocyte,abs olute 0.6 K/uL 0.0-1. 2 normal Not Available [facility] [address] [place] [address], [address], 08/21/2018 12:48:05 08/22/19 19 08/21/2018 CBC w/ auto diff eosinophil,a bsolute 0.3 K/uL 0.0-0. 8 normal Not Available [facility] [address] [place] [address], [address], 08/21/2018 12:48:05 08/22/19 19 08/21/2018 CBC w/ auto diff basophil,abs olute 0.0 K/uL 0.0-0. 3 normal Not Available [facility] [address] [place] [address], [address], 08/21/2018 12:48:05 08/22/1908/21/2018 CBC w/ auto diff % neutrophils 58.8 % 42.0-7 8.0 normal Not Available [facility] [address] [place] [address], [address], 08/21/2018 12:48:05 08/22/1908/21/2018 CBC w/ auto diff % lymphocytes 27.3 % 11.0-4 7.0 normal Not Available [facility] [address] [place] [address], [address], 08/21/2018 12:48:05 08/22/1908/21/2018 CBC w/ auto diff % monocytes 9.3 % 0.0-11 .0 normal Not Available [facility] [address] [place] [address], [address], 08/21/2018 12:48:05 08/22/1908/21/2018 CBC w/ auto diff % eosinophils 4.3 % 0.0-7. 0 normal Not Available [facility] [address] [place] [address], [address], 08/21/2018 12:48:05 08/22/1908/21/2018 CBC w/ auto diff % basophils 0.3 % 0.0-3. 0 normal Not Available [facility] [address] [place] [address], [address], 08/21/2018 12:48:05 08/22/1908/21/2018 CBC w/ auto diff nucleated red cells 0.0 % 0.0-0. 9 normal Not Available [facility] [address] [place] [address], [address], 08/21/2018 12:48:05 08/22/1908/21/2018 CBC w/ auto diff nucleated RBCs, absolute 0.00 K/uL not estab. normal Not Available [facility] [address] [place] [address], [address], 08/21/2018 12:48:05 08/22/1908/21/2018 corti tammy, serum or plasm a cortisol 7.78 ug/dL 2.68-1 8.40 normal CORTI TAMMY KARI L RANGE S: 6 am to 10 am 6.02 - 18.4 ug/dL 4 pm to 8 pm 2.68 - 10.5 ug/dL Not Available [facility] [address] [place] [address], [address], 08/21/2018 13:03:14 08/22/19 19 08/21/2018 T4, free, serum T4,free 1.08 NG/dL 0.93-1 .70 normal Not Available [facility] [address] [place] [address], [address], 08/21/2018 13:05:32 08/22/19 19 08/21/2018 T3, total , serum T3, total 88.6 NG/dL 80.0-2 00.0 normal Not Available [facility] [address] [place] [address], [address], 08/21/2018 13:05:34 08/22/19 19 08/21/2018 TSH, serum or plasm a TSH 3.880 uIU/m L 0.290- 5.500 normal Not Available [facility] [address] [place] [address], [address], 08/21/2018 13:12:14 08/22/19 19 08/21/2018 CK (crea claudette kinas e), total , serum creatine kinase 199 U/L 0-169 high Not Available [facility] [address] [place] [address], [address], 08/21/2018 13:19:13 08/22/19 19 08/21/2018 CMP, serum or plasm a glucose 96 mg/dL 74-100 normal Not Available [facility] [address] [place] [address], [address], 08/21/2018 13:19:14 08/22/19 19 08/21/2018 CMP, serum or plasm a blood urea nitrogen 15 mg/dL 6-20 normal Not Available [facility] [address] [place] [address], [address], 08/21/2018 13:19:14 08/22/19 19 08/21/2018 CMP, serum or plasm a creatinine 0.83 mg/dL 0.50-0 .95 normal Not Available [facility] [address] [place] [address], [address], 08/21/2018 13:19:14 08/22/1908/21/2018 CMP, serum or plasm a BUN/creatini ne ratio 18 (calc ) 10-20 normal Not Available [facility] [address] [place] [address], [address], 08/21/2018 13:19:14 08/22/1908/21/2018 CMP, serum or plasm a sodium 140 mmol/ L 136-14 5 normal Not Available [facility] [address] [place] [address], [address], 08/21/2018 13:19:14 08/22/1908/21/2018 CMP, serum or plasm a potassium 4.4 mmol/ L 3.4-5. 0 normal Not Available [facility] [address] [place] [address], [address], 08/21/2018 13:19:14 08/22/1908/21/2018 CMP, serum or plasm a chloride 101 mmol/ L 98-107 normal Not Available [facility] [address] [place] [address], [address], 08/21/2018 13:19:14 08/22/1908/21/2018 CMP, serum or plasm a carbon dioxide 27 mmol/ L 20-32 normal Not Available [facility] [address] [place] [address], [address], 08/21/2018 13:19:14 08/22/1908/21/2018 CMP, serum or plasm a anion gap 12 (calc ) 7-25 normal Not Available [facility] [address] [place] [address], [address], 08/21/2018 13:19:14 08/22/1908/21/2018 CMP, serum or plasm a calcium 9.5 mg/dL 8.6-10 .2 normal Not Available [facility] [address] [place] [address], [address], 08/21/2018 13:19:14 08/22/19 19 08/21/2018 CMP, serum or plasm a total protein 6.6 g/dL 6.4-8. 3 normal Not Available [facility] [address] [place] [address], [address], 08/21/2018 13:19:14 08/22/19 19 08/21/2018 CMP, serum or plasm a albumin 3.7 g/dL 3.5-5. 2 normal Not Available [facility] [address] [place] [address], [address], 08/21/2018 13:19:14 08/22/1908/21/2018 CMP, serum or plasm a globulin 2.9 g/dL_ (calc ) 1.5-4. 5 normal Not Available [facility] [address] [place] [address], [address], 08/21/2018 13:19:14 08/22/1908/21/2018 CMP, serum or plasm a albumin/glob ulin ratio 1.3 (calc ) 1.1-2. 5 normal Not Available [facility] [address] [place] [address], [address], 08/21/2018 13:19:14 08/22/19 19 08/21/2018 CMP, serum or plasm a bilirubin, total 0.3 mg/dL 0.1-1. 2 normal Not Available [facility] [address] [place] [address], [address], 08/21/2018 13:19:14 08/22/1908/21/2018 CMP, serum or plasm a alkaline phosphatase 46 U/L 35-105 normal Not Available [facility] [address] [place] [address], [address], 08/21/2018 13:19:14 08/22/1908/21/2018 CMP, serum or plasm a AST 18 U/L 0-32 normal Not Available [facility] [address] [place] [address] [place], [address], 08/21/2018 13:19:14 08/22/19 19 08/21/2018 CMP, serum or plasm a ALT 13 U/L 0-33 normal Not Available [facility] [address] [place] [address], [address], 08/21/2018 13:19:14 08/22/1908/21/2018 CMP, serum or plasm a GFR 85 >= 60 normal Not Available [facility] [address] [place] [address], [address], 08/21/2018 13:19:14 08/22/1908/21/2018 CMP, serum or plasm a GFR non- 73 >= 60 normal NOT E NEW calcu latio n for GFR is based on the Natio nal Kidne y Found ation CKD-E PI equat ion and allow s for repor ting GFR value s great er than 60 mL/mi n/1.7 3 m2. This calcu latio n has not been valid ated for patie nts less than 18 yrs., pregn ant women and Hispa nics. Chron ic kidne y disea se is defin ed as kidne y damag e or GFR less than 60 mL/mi n/1.7 3 m2 for 3 month s or longe r. Not Available [facility] [address] [place] [address], [address], 08/21/2018 13:19:14 08/22/1908/21/2018 magne sium, QN, serum or plasm a magnesium 1.97 mg/dL 1.60-2 .60 normal Not Available [facility] [address] [place] [address], [address], 08/21/2018 13:19:16 08/22/1908/21/2018 iron + total iron- magali ng capac ity (TIBC ), serum iron 63 ug/dL 37-145 normal Not Available [facility] [address] [place] [address], [address], 08/21/2018 13:19:17 08/22/19 19 08/21/2018 iron + total iron- magali ng capac ity (TIBC ), serum total iron binding cap. 312 ug/dL _(taty c) 250-45 0 normal Not Available [facility] [address] [place] [address], [address], 08/21/2018 13:19:17 08/22/19 19 08/21/2018 iron + total iron- magali ng capac ity (TIBC ), serum unsat.iron binding cap. 249 ug/dL 112-34 7 normal Not Available [facility] [address] [place] [address], [address], 08/21/2018 13:19:17 08/22/19 19 08/21/2018 iron + total iron- magali ng capac ity (TIBC ), serum % saturation 20 %_(ca lc) 15-50 normal Not Available [facility] [address] [place] [address], [address], 08/21/2018 13:19:17 Result Notes None recorded. Problems No Known Problems Medical Equipment None Reported. Allergies Allergen ID Allergen Name Allergen Category Reaction Reaction Severity Criticality Documentation Date Start Date Code Code System Note Provider Name and Address Organization Details Recorded Time 107165 Substance with sulfonami de structure and antibacte rial mechanism of action (substanc e) medicatio n Not available Not available Not available 01/28/20162007 87199 8003 SNOMED Comme nt: Creat ed By: King Becca pendletond Date: 2007 12:06 :14 PM; Not Available [facility] 02:49:12 Medications Name Sig Start Date Stop Date Status Note LastModified by Organization Details LastModified Time latanopro st 0.005 % eye drops active Not Available Not Available Not Available methocarb david 500 mg tablet tid active Not Available Not Available No t Available albuterol sulfate 0.63 mg/3 mL solution for nebulizat ion q 4 hrs prn active Not Available Not Available No t Available trazodone 50 mg tablet 06/19 /2019 completed Medicati on Descript ion: trazodon e; Route:or al; refills: 0 Not Available Not Available Not Available ibuprofen 800 mg tablet active Not Available Not Available Not Available levothyro xine 75 mcg tablet one daily active Not Available Not Available No t Available levothyro xine 100 mcg tablet Daily 08/21 completed Not Available Not Available Not Available oxycodone -acetamin ophen 5 mg-325 mg tablet 08/21 completed Not Available Not Available Not Available prednisol one acetate 1 % eye drops,veronica pension 08/21 completed Not Available Not Available Not Available trazodone 100 mg tablet active Not Available Not Available Not Available levothyro xine 50 mcg tablet 08/21 completed Not Available Not Available Not Available cephalexi n 500 mg capsule 08/21 completed Not Available Not Available Not Available cyanocoba madhu (vit B-12) 1,000 mcg/mL injection solution 08/21 completed Not Available Not Available Not Available levothyro xine 150 mcg tablet 08/21 completed Not Available Not Available Not Available gabapenti n 300 mg capsule Bedtime active Not Available Not Available Not Available omeprazol e 20 mg capsule,d elayed release active Not Available Not Available Not Available Sinemet 25 mg-100 mg tablet As needed 08/21 completed Duration : 10 days;Faraz quency: prn;Medi cation Descript ion: carbidop a-levodo pa; Route:or al; refills: 0 Not Available Not Available Not Available sertralin e 50 mg tablet active Not Available Not Available Not Available escitalop raman 10 mg tablet 08/21 completed Not Available Not Available Not Available nitrofura ntoin monohydra te/macroc rystals 100 mg capsule 08/21 completed Not Available Not Available Not Available ibandrona te 150 mg tablet active Not Available Not Available Not Available Prepopik 10 mg-3.5 gram-12 gram oral powder packet 08/21 completed Not Available Not Available Not Available Anoro Ellipta 1 puff daily active Not Available Not Available No t Available Vitals Date Recorded Body height Body mass index (BMI) Body weight Heart rate Systolic blood pressure Diastolic blood pressure Provider Name and Address Organization Details Last Updated DateTime 9 167.64 cm 28.2 kg/m2 95690.6 6 g 72 /min 116 mm[Hg] 62 mm[Hg] Carina Bridges [facility] 9 11:36:18 Social History Question Answer Notes LastModified by Organizat ion Details LastModified Time Tobacco Smoking Status Former Smoker Carina summers, [facility] 08/21/2018 11:46:39 What Was The Date Of Your Most Recent Tobacco Screening? 08/21/2018 Information n ot available 04/22/2019 Sex: Unknown Functional Status None recorded. Mental Status None recorded. Family History Nothing Reported. Medical History No medical history recorded. Gynecological HistoryNo gynecological history recorded. Obstetrics History GPAL:G 0 P 0 0 0 0 Past Encounters Encounter ID Performer Location Encounter Start Date Encounter Closed Date Diagnosis/Indication Diagnosis SNOMED-CT Code Diagnosis ICD10 Code Diagnosis Note [id number] [place] [address] 06/05/2016 23:33:08 06/05/2016 23:33:08 [id number] INOCENCIA ORTIZ MD [facility]CR[facility] [address] [place] [address] 08/21/2018 11:29:57 08/22/2018 08:38:02 Acquired hypothyroidism 893098208 E03.9 68-year-ol d female patient with a past medical history of emphysema on home oxygen therapy, postmenopa usal osteopenia /osteoporo sis on oral bisphospho katherin therapy, long-stand ing history of hypothyroi dism on thyroid hormone replacemen t therapy seen in the office today for uncontroll ed hypothyroi dism evaluation and further management in the context of abnormal symptoms. Reported symptoms suggestive of uncontroll ed hypothyroi dism such as fatigue, hair loss Current levothyrox ine dose of 75 ??g every a.m. Taken appropriat jamir Last TSH of 6 on 06/21/2018 Previous TSH of 19 Recommenda tions: Check TSH, free T4 and total T3 today Continue current levothyrox ine dose of 75 ??g at present Patient was instructed on the appropriat e method of levothyrox ine administra tion to be taken every a.m. on an empty stomach as new food, drinks or other medication s for at least 30 minutes. PPI and calcium -containin g preparatio ns is preferred to be given at least of her hours before or after levothyrox in therapy. Further adjustment to keep levels within normal range Alopecia 21184255 L65.9 Evaluate for causes of her loss i.e. anemia as well as uncontroll ed hypothyroi dism Cramp in lower limb 4499 02154 R25.2 Bilateral leg cramping Evaluate for hyponatrem ia, or other electrolyt e disturbanc es Fatigue 87954599 R53.83 Fatigue/di zziness Evaluate for random serum cortisol and further management i.e. ACTH stimulatio n test for low random cortisol. Patient verbalized understand ing and agreed with the above mentioned plan of care. I would like to thank Dr. Fernandez for the opportunit y to participat e in the care of this patient. Health Concerns Section Related Observation LastModified by Organization Detai ls LastModified Time None Recorded Concern Status LastModified by Organization Details LastModified Time None Recorded Advance Directives Directive None Recorded Payers Encounter Date Sequence Insurance Name Policy Number Policy [place] Covered Member ID [place] Member ID Guarantor Name 08/21/2018 1 [employer] (MEDICARE) Kathy Ruiz Best [id number] Kathy Best 08/21/2018 2 [employer] (MEDICARE SUPPLEMENT) Kathy Ruiz Best [id number] Kathy Best Notes Date Note Type Note Provider Name and Address Organization Details Recorded Time 08/21/2018 text/html 68-year-old female patient with a past medical history as detailed in the problem list significant for hypothyroidism, primary on thyroid hormone replacement therapy, postmenopausal osteopenia on therapy seen in the office today for uncontrolled hypothyroidism evaluation further management. Requesting provider: Fernando Caruso Long-standing history of emphysema on oxygen therapy Onset of hypothyroidism: Doesn't remember exactly but several years Family history: 2 sisters with hypothyroidism Current regimen: 75 ??g every a.m. appropriately as instructed Has been on this dose for at least 3 months Reported the following symptoms: Hair loss Fatigue Dizziness She denies any palpitations, shaking or excessive sweating. INOCENCIA ORTIZ MD [address] [place] [address], [phone], [facility] 08/21/2018 12:12:36 OBGyn Episode No OBEpisode recorded.
--- NOTE | 2024-06-26 13:08 | MR_ITS ---
FINAL REPORT TECHNIQUE: Multiplanar and multisequence imaging of the brain was obtained without contrast. CLINICAL HISTORY: NEW ONSET HEADACHES/DIZZINESS headaches no injury / trauma COMPARISON: 08/02/2023 FINDINGS: There is no mass effect or midline shift. Mild to moderate foci of periventricular and subcortical white matter are nonspecific. No hydrocephalus. The cerebellum and brainstem have an unremarkable appearance. There are no areas of restricted diffusion on diffusion weighted images to suggest acute infarct. Soft tissues are without acute abnormality. IMPRESSION: No acute intracranial abnormality. Stable white matter signal changes, likely related to chronic microvascular ischemia. Reviewed, Interpreted and Dictated by Jacquie Ritchie MD Transcribed by Cira Perales Authenticated and [facility]
== END 2024-06-26 23:59 | disposition home or self-care (01) ==
LOC: RAD 13:04
PROVIDERS: PCP Internal Medicine Adolescent Medicine; Visit Provider Internal Medicine Adolescent Medicine
DX: R51.9 Headache, unspecified (principal); R42 Dizziness and giddiness
CPT/HCPCS: 70551

== ENCOUNTER 2024-08-07 10:34 | Outpatient (CLI) | payer MEDICARE, OTHER, SELFPAY ==
--- OUTSIDE RECORDS SUMMARY | 2024-08-07 10:36 | XMS_ITS | Data Portability ---
Author Organization MARAH Huerta [facility] Address [address] [place] [address] [address] [place] [address] Assessment No assessment recorded. Plan of Treatment Reminders Order Date Submit Date Provider Last Modified By Organization Details Last Modified Time Details Appointments None recorded. Lab CMP, serum or plasma 2018 019 [facility], [address] [place] [address], [id number], 9 13:19:15 TSH, serum or plasma 2018 019 [facility], [address] [place] [address], [address], 9 13:12:14 T3, total, serum 2018 019 [facility], [address] [place] [address], [address], 9 13:05:34 T4, free, serum 2018 019 [facility], [address] [place] [address], [address], 9 13:05:32 magnesium, QN, serum or plasma 2018 019 [facility], [address] [place] [address], [address], 9 13:19:16 CK (creatine kinase), total, serum 2018 019 [facility], [address] [place] [address], [address], 9 13:19:13 CBC w/ auto diff 2018 019 [facility], [address] [place] [address], [address], 9 12:48:05 iron + total iron-magali ng capacity (TIBC), serum 2018 019 [facility], [address] [place] [address], [address], 9 13:19:17 cortisol, serum or plasma 2018 019 [facility], [address] [place] [address], [address], 9 13:03:14 Referral None recorded. Procedures None recorded. Surgeries None recorded. Imaging None recorded. Medication Orders None recorded. Patient TargetsNo targets recorded. Patient Instructions Encounter Date Encounter Id Patient Instructions Last Modified By Organization Details Last Modified Time 08/21/2018 [id number] hair loss from alopecia areata: care instructions wayoub Not available 08/21/2018 11:58:03 Reason for Referral None Reported. Results Created Date Observation Date Name Description Value Unit Range Abnormal Flag Note LastModifiedBy Organization Detail LastModifiedTime 08/22/1908/21/2018 CBC w/ auto diff white blood cells 6.3 K/uL 3.8-10 .8 normal Not Available [facility] [address] [place] [address], [address], 08/21/2018 12:48:05 08/22/1908/21/2018 CBC w/ auto diff red blood cells 4.07 M/uL 3.80-5 .20 normal Not Available [facility] [address] [place] [address], [address], 08/21/2018 12:48:05 08/22/19 19 08/21/2018 CBC w/ auto diff hemoglobin 12.5 g/dL 12.0-1 6.0 normal Not Available [facility] [address] [place] [address], [address], 08/21/2018 12:48:05 08/22/19 19 08/21/2018 CBC w/ auto diff hematocrit 37.2 % 35.0-4 7.0 normal Not Available [facility] [address] [place] [address], [address], 08/21/2018 12:48:05 08/22/1908/21/2018 CBC w/ auto diff MCV 92 fL 80-100 normal Not Available [facility] [address] [place] [address], [address], 08/21/2018 12:48:05 08/22/1908/21/2018 CBC w/ auto diff MCH 31 pg 26-35 normal Not Available [facility] [address] [place] [address], [address], 08/21/2018 12:48:05 08/22/19 19 08/21/2018 CBC w/ auto diff MCHC 34 g/dL 32-36 normal Not Available [facility] [address] [place] [address], [address], 08/21/2018 12:48:05 08/22/19 19 08/21/2018 CBC w/ auto diff RDW 14.2 % 11.0-1 5.0 normal Not Available [facility] [address] [place] [address], [address], 08/21/2018 12:48:05 08/22/1908/21/2018 CBC w/ auto diff MPV 9.2 fL 6.2-10 .5 normal Not Available [facility] [address] [place] [address], [address], 08/21/2018 12:48:05 08/22/1908/21/2018 CBC w/ auto diff platelet count 191 K/uL 130-40 0 normal Not Available [facility] [address] [place] [address], [address], 08/21/2018 12:48:05 08/22/19 19 08/21/2018 CBC w/ auto diff neutrophil,a bsolute 3.7 K/uL 1.6-8. 4 normal Not Available [facility] [address] [place] [address], [address], 08/21/2018 12:48:05 08/22/1908/21/2018 CBC w/ auto diff lymphocyte,a bsolute 1.7 K/uL 0.4-5. 1 normal Not Available [facility] [address] [place] [address], [address], 08/21/2018 12:48:05 08/22/19 19 08/21/2018 CBC w/ auto diff monocyte,abs olute 0.6 K/uL 0.0-1. 2 normal Not Available [facility] [address] [place] [address], [address], 08/21/2018 12:48:05 08/22/19 19 08/21/2018 CBC w/ auto diff eosinophil,a bsolute 0.3 K/uL 0.0-0. 8 normal Not Available [facility] [address] [place] [address], [address], 08/21/2018 12:48:05 08/22/19 19 08/21/2018 CBC w/ auto diff basophil,abs olute 0.0 K/uL 0.0-0. 3 normal Not Available [facility] [address] [place] [address], [address], 08/21/2018 12:48:05 08/22/1908/21/2018 CBC w/ auto diff % neutrophils 58.8 % 42.0-7 8.0 normal Not Available [facility] [address] [place] [address], [address], 08/21/2018 12:48:05 08/22/1908/21/2018 CBC w/ auto diff % lymphocytes 27.3 % 11.0-4 7.0 normal Not Available [facility] [address] [place] [address], [address], 08/21/2018 12:48:05 08/22/1908/21/2018 CBC w/ auto diff % monocytes 9.3 % 0.0-11 .0 normal Not Available [facility] [address] [place] [address], [address], 08/21/2018 12:48:05 08/22/1908/21/2018 CBC w/ auto diff % eosinophils 4.3 % 0.0-7. 0 normal Not Available [facility] [address] [place] [address], [address], 08/21/2018 12:48:05 08/22/1908/21/2018 CBC w/ auto diff % basophils 0.3 % 0.0-3. 0 normal Not Available [facility] [address] [place] [address], [address], 08/21/2018 12:48:05 08/22/1908/21/2018 CBC w/ auto diff nucleated red cells 0.0 % 0.0-0. 9 normal Not Available [facility] [address] [place] [address], [address], 08/21/2018 12:48:05 08/22/1908/21/2018 CBC w/ auto diff nucleated RBCs, absolute 0.00 K/uL not estab. normal Not Available [facility] [address] [place] [address], [address], 08/21/2018 12:48:05 08/22/1908/21/2018 corti tammy, serum or plasm a cortisol 7.78 ug/dL 2.68-1 8.40 normal CORTI TAMMY KARI L RANGE S: 6 am to 10 am 6.02 - 18.4 ug/dL 4 pm to 8 pm 2.68 - 10.5 ug/dL Not Available [facility] [address] [place] [address], [address], 08/21/2018 13:03:14 08/22/19 19 08/21/2018 T4, free, serum T4,free 1.08 NG/dL 0.93-1 .70 normal Not Available [facility] [address] [place] [address], [address], 08/21/2018 13:05:32 08/22/19 19 08/21/2018 T3, total , serum T3, total 88.6 NG/dL 80.0-2 00.0 normal Not Available [facility] [address] [place] [address], [address], 08/21/2018 13:05:34 08/22/19 19 08/21/2018 TSH, serum or plasm a TSH 3.880 uIU/m L 0.290- 5.500 normal Not Available [facility] [address] [place] [address], [address], 08/21/2018 13:12:14 08/22/19 19 08/21/2018 CK (crea claudette kinas e), total , serum creatine kinase 199 U/L 0-169 high Not Available [facility] [address] [place] [address], [address], 08/21/2018 13:19:13 08/22/19 19 08/21/2018 CMP, serum or plasm a glucose 96 mg/dL 74-100 normal Not Available [facility] [address] [place] [address], [address], 08/21/2018 13:19:14 08/22/19 19 08/21/2018 CMP, serum or plasm a blood urea nitrogen 15 mg/dL 6-20 normal Not Available [facility] [address] [place] [address], [address], 08/21/2018 13:19:14 08/22/19 19 08/21/2018 CMP, serum or plasm a creatinine 0.83 mg/dL 0.50-0 .95 normal Not Available [facility] [address] [place] [address], [address], 08/21/2018 13:19:14 08/22/1908/21/2018 CMP, serum or plasm a BUN/creatini ne ratio 18 (calc ) 10-20 normal Not Available [facility] [address] [place] [address], [address], 08/21/2018 13:19:14 08/22/1908/21/2018 CMP, serum or plasm a sodium 140 mmol/ L 136-14 5 normal Not Available [facility] [address] [place] [address], [address], 08/21/2018 13:19:14 08/22/1908/21/2018 CMP, serum or plasm a potassium 4.4 mmol/ L 3.4-5. 0 normal Not Available [facility] [address] [place] [address], [address], 08/21/2018 13:19:14 08/22/1908/21/2018 CMP, serum or plasm a chloride 101 mmol/ L 98-107 normal Not Available [facility] [address] [place] [address], [address], 08/21/2018 13:19:14 08/22/1908/21/2018 CMP, serum or plasm a carbon dioxide 27 mmol/ L 20-32 normal Not Available [facility] [address] [place] [address], [address], 08/21/2018 13:19:14 08/22/1908/21/2018 CMP, serum or plasm a anion gap 12 (calc ) 7-25 normal Not Available [facility] [address] [place] [address], [address], 08/21/2018 13:19:14 08/22/1908/21/2018 CMP, serum or plasm a calcium 9.5 mg/dL 8.6-10 .2 normal Not Available [facility] [address] [place] [address], [address], 08/21/2018 13:19:14 08/22/19 19 08/21/2018 CMP, serum or plasm a total protein 6.6 g/dL 6.4-8. 3 normal Not Available [facility] [address] [place] [address], [address], 08/21/2018 13:19:14 08/22/19 19 08/21/2018 CMP, serum or plasm a albumin 3.7 g/dL 3.5-5. 2 normal Not Available [facility] [address] [place] [address], [address], 08/21/2018 13:19:14 08/22/1908/21/2018 CMP, serum or plasm a globulin 2.9 g/dL_ (calc ) 1.5-4. 5 normal Not Available [facility] [address] [place] [address], [address], 08/21/2018 13:19:14 08/22/1908/21/2018 CMP, serum or plasm a albumin/glob ulin ratio 1.3 (calc ) 1.1-2. 5 normal Not Available [facility] [address] [place] [address], [address], 08/21/2018 13:19:14 08/22/19 19 08/21/2018 CMP, serum or plasm a bilirubin, total 0.3 mg/dL 0.1-1. 2 normal Not Available [facility] [address] [place] [address], [address], 08/21/2018 13:19:14 08/22/1908/21/2018 CMP, serum or plasm a alkaline phosphatase 46 U/L 35-105 normal Not Available [facility] [address] [place] [address], [address], 08/21/2018 13:19:14 08/22/1908/21/2018 CMP, serum or plasm a AST 18 U/L 0-32 normal Not Available [facility] [address] [place] [address] [place], [address], 08/21/2018 13:19:14 08/22/19 19 08/21/2018 CMP, serum or plasm a ALT 13 U/L 0-33 normal Not Available [facility] [address] [place] [address], [address], 08/21/2018 13:19:14 08/22/1908/21/2018 CMP, serum or plasm a GFR 85 >= 60 normal Not Available [facility] [address] [place] [address], [address], 08/21/2018 13:19:14 08/22/1908/21/2018 CMP, serum or plasm [...] month s or longe r. Not Available [facility] [address] [place] [address], [address], 08/21/2018 13:19:14 08/22/1908/21/2018 magne sium, QN, serum or plasm a magnesium 1.97 mg/dL 1.60-2 .60 normal Not Available [facility] [address] [place] [address], [address], 08/21/2018 13:19:16 08/22/1908/21/2018 iron + total iron- magali ng capac ity (TIBC ), serum iron 63 ug/dL 37-145 normal Not Available [facility] [address] [place] [address], [address], 08/21/2018 13:19:17 08/22/19 19 08/21/2018 iron + total iron- magali ng capac ity (TIBC ), serum total iron binding cap. 312 ug/dL _(taty c) 250-45 0 normal Not Available [facility] [address] [place] [address], [address], 08/21/2018 13:19:17 08/22/19 19 08/21/2018 iron + total iron- magali ng capac ity (TIBC ), serum unsat.iron binding cap. 249 ug/dL 112-34 7 normal Not Available [facility] [address] [place] [address], [address], 08/21/2018 13:19:17 08/22/19 19 08/21/2018 iron + total iron- magali ng capac ity (TIBC ), serum % saturation 20 %_(ca lc) 15-50 normal Not Available [facility] [address] [place] [address], [address], 08/21/2018 13:19:17 Result Notes None recorded. Problems No Known Problems Medical Equipment None Reported. Allergies Allergen ID Allergen Name Allergen Category Reaction Reaction Severity Criticality Documentation Date Start Date Code Code System Note Provider Name and Address Organization Details Recorded Time 964333 Substance with sulfonami de structure and antibacte rial mechanism of action (substanc e) medicatio n Not available Not available Not available 01/28/20162007 01900 8003 SNOMED Comme nt: Creat ed By: [...] Updated DateTime 9 167.64 cm 28.2 kg/m2 12969.6 6 g 72 /min 116 mm[Hg] 62 mm[Hg] Carina Bridges [facility] 9 11:36:18 Social History Question Answer Notes LastModified by Organizat ion Details LastModified Time Tobacco Smoking Status Former Smoker Carina summers [facility] 08/21/2018 11:46:39 What Was The Date Of [...] SNOMED-CT Code Diagnosis ICD10 Code Diagnosis Note [id number] QM_[place] [address] 06/05/2016 23:33:08 06/05/2016 23:33:08 [id number] INOCENCIA ORTIZ MD [address] [place] [address] 08/21/2018 11:29:57 08/22/2018 08:38:02 Acquired hypothyroidism 687323936 E03.9 68-year-ol d female patient with a [...] loss Current levothyrox ine dose of 75 g every a.m. Taken appropriat jamir Last TSH of 6 on 06/21/2018 Previous TSH of 19 Recommenda tions: Check TSH, free T4 and total T3 today Continue current levothyrox ine dose of 75 g at present Patient was instructed on the [...] to keep levels within normal range Alopecia 90253304 L65.9 Evaluate for causes of her loss i.e. anemia as well as uncontroll ed hypothyroi dism Cramp in lower limb 4499 84075 R25.2 Bilateral leg cramping Evaluate for hyponatrem ia, or other electrolyt e disturbanc es Fatigue 16400685 R53.83 Fatigue/di zziness Evaluate for random serum [...] Recorded Advance Directives Directive None Recorded Payers Insurance Date Sequence Insurance Name Policy Number Policy Naranjo Covered Member ID Naranjo Member ID Guarantor Name 01/28/2020 1 MEDICARE-[employer] (MEDICARE) Kathy Ruiz Best [id number] Kathy Best 01/28/2020 2 [employer] SU[employer]AL - [employer] (MEDICARE SUPPLEMENT) Kathy M Best [id number] Kathy Best Notes Date Note Type [...] 2 sisters with hypothyroidism Current regimen: 75 g every a.m. appropriately as instructed Has been on this dose for at least 3 months Reported the following symptoms: Hair loss Fatigue Dizziness She denies any palpitations, shaking or excessive sweating. INOCENCIA ORTIZ MD [address] [place] [address], [address], [facility] 08/21/2018 12:12:36 OBGyn Episode No OBEpisode recorded.
--- OUTSIDE RECORDS SUMMARY | 2024-08-07 10:36 | XMS_ITS | Data Portability ---
Author Organization [facility] - Justino oliveira MD, Main Office Address [address] [place] [address] Care Team Providers Care Electrolytic Etcher Name Role Phone ROEL HUA Referring Provider CAROLE JEREZ Primary Care Provider Assessment No assessment recorded. Plan of Treatment Reminders Order Date Submit Date Provider Last Modified By Organization Details Last Modified Time Details Appointments None recorded. Lab None recorded. Referral None recorded. Procedures nerve conduction study/EMG (PROC) 2021 022 Justino Cason MD, [address], [place], [address], 10:27:12 Surgeries None recorded. Imaging MRI, cervical spine, w/o contrast 2021 022 [facility], [address], [place], [address], 09:11:29 Medication Orders butalbital- acetaminoph en-caffeine 50 mg-325 mg-40 mg tablet [address] [facility], [address], [address], 12:37:27 Patient TargetsNo targets recorded. Patient Instructions Encounter Date Encounter Id Patient Instructions Last Modified By Organization Details Last Modified Time 10/11/2021 [id number] cervical spinal stenosis: care instructions Not available 10/11/2021 12:37:19 Finding has been discussed with the patient and her sister Opal in detail. EMG/NCV of both legs. MRI scan of the cervical spine. Fioricet for headache. I will see her back in follow-up. Not available 10/11/2021 13:00:22 10/28/2021 [id number] [facility] Not available 10/28/2021 11:26:22 10/28/2021 [id number] Learning About [facility] Back [facility] Not [...] contr ast No observ ation record ed. [facility] (Scheduling) [address], [place], [address], 10/25/2021 12:31:33 10/29/1910/28/2021 nerve condu ction study /EMG (PROC ) No observ ation record ed. BARCODE Justino Cason MD [address], [place], [address], 10/28/2021 12:16:54 Result Notes None recorded. Problems No Known Problems Procedures Surgical History Date Name Laterality Status Provider Name and Address Organization Details Recorded Time 10/29/19 NCV/EMG completed Av Cason MD 10/28/2021 11:25:53 excision of basal cell carcinoma completed Yue Cason MD 08/16/2021 10:37:44 Breast reduction completed Yue Cason MD 08/16/2021 10:37:58 cholecystectomy completed Yue Cason MD 10/11/2021 12:27:43 Imaging Results None recorded. Procedure Notes None recorded. Medical Equipment None Reported. Allergies Allergen ID Allergen Name Allergen Category Reaction Reaction Severity Criticality Documentation Date Start Date Code Code System Note Provider Name and Address Organization Details Recorded Time 6269 Substance with sulfonami de structure and antibacte rial mechanism of action (substanc e) medicatio n Not available Not available Not available 10/11/2021 95953 8003 SNOMED CHRIS Adams MD 12:25:42 Medications Name Sig Start Date Stop Date [...] Updated DateTime 2 167.64 cm 27.6 kg/m2 36525.3 g 78 /min 17 /min 138 mm[Hg] 85 mm[Hg] Justino Cason MD [address], [place] [address] 0CHRIS MD 12:55:42 Date Recorded Body mass index (BMI) Body weight Heart rate Respiratory rate Systolic blood pressure Diastolic blood pressure Provider Name and Address Organization Details Last Updated DateTime 2 27.6 kg/m2 08417.3 g 79 /min 17 /min 132 mm[Hg] 77 mm[Hg] Justino Cason MD [address], [address] [address] 0CHRIS MD 2 12:01:11 Date Recorded Body height Provider Name an d Address Organization Details Last Updated DateTime 10/28/2021 167.64 cm Judy Chavezgiero CHRIS Cason MD 10/28/2021 11:48:24 Social History Question Answer Notes LastModified by Organizat ion Details LastModified Time Tobacco Smoking Status Former Smoker CHRIS Adams MD 10/11/2021 12:27:21 Do You Have An Advance Directive? Yes Information n ot available 10/11/2021 In The [...] Of Your Most Recent Tobacco Screening? 10/28/2021 [email or web address] Information not available 10/28/2021 Sex: Unknown Functional Status Question Answer Note LastModified by Organization D etails LastModified Time What is your level of alcohol consumption? None Information not available 10/11/2021 Are you able to walk? YESASSIST Information [...] SNOMED-CT Code Diagnosis ICD10 Code Diagnosis Note [id number] Justino Cason MD Main Office [address] [place] [address] 10/11/2021 11:56:17 10/11/2021 12:42:09 Cervicogenic headache 093107070 G44.86 The patient is a 65-year-ol d white female. She has cervicogen ic headache. Spinal kvein nosis in cervical region 94731527 M48.02 I cannot exclude cervical spinal stenosis. Ataxic gait 07441138 R26 .0 She has ataxic gait and weakness in her left hip flexor. Peripheral neuropathy versus radiculopa thy needed to be excluded. [id number] Justino Cason MD Main Office [address] [place] [address] 10/28/2021 10:51:39 10/28/2021 11:31:58 Lumbosacral radiculopathy 7542830 M54.17 Mild chronic left L5/S1, Mild chronic right L5 radiculopa thy. [id number] Justino Cason MD Main Office [address] [facility] [address] [place] [address] 10/28/2021 11:47:27 10/28/2021 11:50:17 Cervicogenic headache 609192930 G44.86 The patient is a 65-year-ol d white female. She has cervicogen ic headache. Lumbosacra l radiculopathy 1929344 M54.17 Mild chronic left L5/S1, Mild chronic right L5 radiculopa thy. Health Concerns Section Related Observation LastModified by Organization Detai ls LastModified Time None Recorded Concern Status LastModified by Organization Details LastModified Time None Recorded Advance Directives Directive Y: Payers Encounter Date Sequence Insurance Name Policy Number Policy Naranjo Covered Member ID Naranjo Member ID Guarantor Name 10/11/2021 2 [employer] Reneeyn Best [id number] Kathy M Best 10/11/2021 1 [place]ARE[place]ICARE[place] Kathy M Best [id number] Kathy M Best 10/28/2021 2 [employer] Kathy Best [id number] Kathy M Best 10/28/2021 1 [place] Kathy M Best [id number] 7 Kathy M Best 10/28/2021 2 [employer] Kathy Best [id number] Kathy M Best 10/28/2021 1 [place] Kathy M Best [id number] 7 Kathy M Best Notes Date Note [...] She denies any diabetes. She has hypothyroidism. Justino Cason MD [address], [place] [address], [place], [address], [facility] - Justino Cason MD 10/11/2021 13:01:38 10/28/2021 text/html Mrs. [...] Dr. Tamayo. He recommended no back surgery. Justino Cason MD [address], [facility], [place], [address], CHRIS Cason MD 10/28/2021 12:04:15 OBGyn Episode No OBEpisode recorded.
[2024-08-08 16:46] LABS: C difficile Toxins AB, EIA Negative (Negative)
== END 2024-08-07 23:59 | disposition home or self-care (01) ==
LOC: LAB 10:34
PROVIDERS: PCP Internal Medicine Adolescent Medicine; Visit Provider Nurse Practitioner Family
DX: R19.7 Diarrhea, unspecified (principal)
CPT/HCPCS: 87045; 87324

== ENCOUNTER 2024-10-21 16:00 | Outpatient (RCR) | payer MEDICARE, OTHER, SELFPAY ==
--- NOTE | 2024-10-09 18:14 | HMH.PTOPEV ---
PT Outpatient Evaluation Rehab PT Outpatient Evaluation Start: 10/09/24 14:19 Freq: Status: Active Protocol: Document 10/09/24 14:19 MILE (Rec: 10/09/24 18:14 MILE [id number]) E-signed By Aishwarya Talbert, PT Outpatient Therapy Subjective History Subjective History Pt is a 74 y/o female who reports chronic L hip pain for 2 years. Pt reports she fell and broke her left hip 2 years ago, states she has had 2 surgeries since. Pt reports a screw was hitting a nerve after the initial surgery and she had to have a revision performed on at . Pt reports pain is improved overall but she continues to have anterolateral hip pain aggravated by laying on that side, twisting/pivoting on the left leg, prolonged sitting, prolonged standing, and walking . Pt reports she is unable to transfer into her shower over the tub so she is sponge bathing. Pt reports she uses a walker for all ambulation, states her balance is terrible. Pt states she is unable to take one step without UE support without feeling off balance. Pt denies falls this year. Pt states she was ambulating fell without an AD prior to the fall and her goal is to ambulate independently. Medical History: Glaucoma, Chronic pain, Emphysema lung , Hypothyroid, Hx lung cancer, Cervical cancer, COPD ( chronic obstructive pulmonary disease), requires 2.5 L of oxygen New diagnosis of No: Hx of lung and cervical cancer cancer in past 12 months? Chief Complaint Pain Symptom Type Sharp Symptoms Relieved By Rest/Positioning,Heat,Prescription Meds Symptoms Aggravated Physical Activity,Walking By Current Functional Housework,Dressing,Sleeping,Standing,Sitting,Squatting, Limitations Recreation Activity,Walking,Stairs,Balance Symptom Description Intermittent Level of pain today 0 (0-10) Pain scale - at its 0 best (0-10) Pain scale - at its 6 worst (0-10) Hip/Knee Eval Gait Observation General Gait Pattern Wide Based Gait Observation Assistive Device Assistive Devices Rolling / Wheeled Walker Palpation Tenderness left Hip Palpation Tenderness Findings Hip Palpation 2/4 TTP of lateral hip musculature Overall Comment MMT Hip Flexion Strength 3+ Fair+ Grade Hip Abduction 3+ Fair+ Strength Grade Hip Adduction 3+ Fair+ Strength Grade Hip Extension 3 Fair Strength Grade Knee Extension 3+ Fair+ Strength Grade Knee Flexion 4- Good- Strength Grade ROM Hip Flexion w/Knee 90 Flexed Active Range of Motion (degrees) Hip External 25 Rotation Active Range of Motion ( degrees) Hip Internal 15 Rotation Active Range of Motion ( degrees) Knee Extension 0 Active Range of Motion (degrees) Knee Flexion Active 100 Range of Motion ( degrees) Lower Extremity Functional Index Activities Today, do you or would you have any difficulty at all with: a.Any of your usual Extreme difficulty or unable to perform activity work, housework or school activities b. Your usual Extreme difficulty or unable to perform activity hobbies, recreational or sporting activities c. Getting into or Extreme difficulty or unable to perform activity out of the bath d. Walking between A little bit of difficulty rooms e. Putting on your Moderate difficulty shoes or socks f. Squatting Extreme difficulty or unable to perform activity g. Lifting an object Moderate difficulty , like a bag of groceries from the floor h. Performing light Quite a bit of difficulty activities around your home i. Performing heavy Extreme difficulty or unable to perform activity activities around your home j. Getting into or Extreme difficulty or unable to perform activity out of a car k. Walking 2 blocks Extreme difficulty or unable to perform activity l. Walking a mile Extreme difficulty or unable to perform activity m. Going up or down Extreme difficulty or unable to perform activity 10 stairs (about 1 flight of stairs) n. Standing for 1 Extreme difficulty or unable to perform activity hour o. Sitting for 1 A little bit of difficulty hour p. Running on even Extreme difficulty or unable to perform activity ground q. Running on uneven Extreme difficulty or unable to perform activity ground r. Making sharp Extreme difficulty or unable to perform activity turns while running fast s. Hopping Extreme difficulty or unable to perform activity t. Rolling over in Extreme difficulty or unable to perform activity bed LEFI Score Lower Extremity 11 Functional Index Score Miscellaneous Dx PT Eval Objective Objective 5x sit to stand: 35 with 1 arm support Outpatient Therapy Assessment Impairments Problems/ Palpation Tenderness,Impaired Range of Motion,Impaired Impairmments Strength,Impaired Transfers,Impaired Gait Pattern, Impaired Walking,Impaired Standing,Impaired Shower/ Bathing,Impaired Household Care,Impaired Stair Climbing ,Impaired Incline Stepping,Impaired Stepping on Uneven Surface,Impaired Balance,Subjective C/O Pain,Impaired Self Care/Self Management Prognosis Rehab Potential Good Clinical Impression Consistent with Yes Diagnosis PT Patient Goals PT Patient Goals PT Short Term 3 weeks: Patient Goals 1. Perform sit to stand transfer without UE support to assist with function. 2. Improve LLE MMT to 4-/5 grossly to assist with function. 3. Improve pain at worst to 4/10 to improve overall QOL . 4. Improve LEFI score to at least 22/80 to improve overall QOL. 5. Voice compliance with HEP to assist with progress. PT Residential Patient 6 weeks: Goals 1. Improve LLE MMT to at least 4/5 grossly to assist with function 2. Improve L hip AROM flex to at least 100, IR/ER to at least 30 to assist with gait/function. 3. Demonstrate proper gait mechanics with LRD to decrease fall risk. 4. Improve 5x sit to stand score to 12 or less to decrease fall risk. 5. Improve LEFI score to 32/80 to improve overall QOL/ function. 6. Improve pain at worst to 2/10 to improve overall QOL . 7. Report ability to transfer in/out of bath tub independently to assist with bathing/self-care. Outpatient Therapy Plan of Care Treatment Plan May Include Therapeutic Exercise Yes Including Home Exercise Program Manual Therapy Yes Techniques Neuromuscular Re- Yes education Therapeutic Yes Activities to Return to Previous Functional/Work Level Gait Training Yes ADL/Self Care Yes Education Electrical Yes Stimulation Ultrasound/ Yes Phonophoresis Iontophoresis Yes Vasopneumatic Yes Compression Pump Massage Yes Manual Lymphatic Yes Drainage Group Therapy for Yes Medicare Eval/Re-Eval Yes Aquatic Therapy Yes Frequency Times per week 2 Duration Number of Weeks 6 Addendums This patient is a No candidate for social or vocational rehab ? Patient/Guardian Yes verbally acknowledges understanding of treatment program and consents to further treatment? Patient/Guardian Yes verbally acknowledges understanding of diagnosis, prognosis and goals for treatment? Eval Complexity PT Charges 99345 - Moderate Complexity Shoulder/Elbow Eval Shoulder Objective Measurements Elbow Objective Measurements PHYSICIAN CERTIFICATION: I certify the specified therapy services for Kathy Best are required, authorized, and reviewed every 30 days.
== END 2024-10-21 23:59 | disposition home or self-care (01) ==
LOC: PT 16:00
PROVIDERS: Visit Provider Nurse Practitioner Family
DX: M25.552 Pain in left hip (principal); R26.89 Other abnormalities of gait and mobility
CPT/HCPCS: 97110; 97162

== ENCOUNTER 2024-10-23 06:19 | Day surgery (SDC) | payer MEDICARE, OTHER, SELFPAY ==
--- NOTE | 2024-10-22 16:19 | P.HP_ITS ---
History of Present Illness *Admission Date: 10/23/24 *History of present illness: Mrs. Best is a 74-year-old female who is here for diagnostic colonoscopy secondary to a change in bowel habits. She also has mucus in her stool which is sometimes reddish-brown. Her last colonoscopy was in 2018 and she had 3 polyps (tubular adenomas x 3 which were removed. The examination is deemed medically necessary for diagnostic colonoscopy. The patient has been seen, interviewed and examined prior to the procedure by both myself and the anesthesia provider. [facility] Disclaimer: The information contained in this section may have been updated after the patient was seen, as this information can be updated by other users. Medical History Glaucoma Chronic pain Emphysema lung Hypothyroid Lung cancer Cervical cancer COPD (chronic obstructive pulmonary disease) Surgical History Hx of cholecystectomy History of appendectomy History of bowel resection Family History Other AAA (abdominal aortic aneurysm) COPD (chronic obstructive pulmonary disease) Cancer Diabetes High cholesterol Hypertension Stroke Social History (Updated 10/23/24 @ 06:37 by Keisha Denson RN) Smoking Status: Never smoker alcohol intake: never counseling provided: none substance use type: denies use current occupational status: other Travel in the last 8 weeks?: None household members: family housing: house marital status: number of children: 2 number of grandchildren: 5 caffeine: No Have you lived/traveled outside [place] in past 30 days?: No Contact w/someone who lives/traveled outside US past 30 days?: No Exposure to someone with infectious disease in past 14 days?: No Do you have a fever (greater than 100.4 F or 38 C)?: No Have you tested positive for COVID-19?: No Exposed to someone with COVID-19 in past 14 days?: No Do you have a sore throat?: No Do you have a cough?: No Do you have any weakness?: No Are you experiencing any nausea/vomitting?: No Do you have any diarrhea?: No Are you experiencing any unusual bleeding?: No Do you have any muscle aches/pain?: No Do you have any abdominal pain?: No Are you experiencing loss of taste or smell?: No Other Medical History Have you received the Flu Vaccine for this season: Yes Have you received the Pneumonia Vaccine: Yes Review of Systems Review of Systems Review of systems (narrative): Negative *Cardiovascular Comments: Negative *Gastrointestinal Comments: Negative *Genitourinary Comments: Negative *Musculoskeletal Comments: Negative *Neurologic Comments: Negative Meds Home Medications and Allergies Home Medications ?Medication ?Instructions ?Recorded ?Confirmed ?Type albuterol sulfate 90 mcg/actuation 2 puff inhalation Q IDP PRN 08/01/17 07/24/24 History aerosol inhaler (Ventolin HFA) Shortness Of Breath ibuprofen 800 mg tablet 800 mg PO TID MILD TO MODERA TE PAIN 08/01/17 07/24/24 History Held on 04/11/22. Instructions: Resume on 05/02/22. latanoprost 0.005 % eye drops 1 drp Eye-Both QPM Glauc chema 08/01/17 07/24/24 History omeprazole 20 mg capsule,delayed 20 mg PO DAILY Reflux /Acid reflux 08/01/17 07/24/24 History release trazodone 100 mg tablet 100 mg PO HS sleep 08/01/17 07/24/24 History albuterol sulfate 1.25 mg/3 mL 1.25 mg inhalation Q4HP PRN 08/20/17 07/24/24 History solution for nebulization breathing cholecalciferol (vitamin D3) 25 2,000 unit PO DAILY Vo pplement 12/14/17 07/24/24 History mcg (1,000 unit) chewable tablet fluticasone fur. 100 mcg-umeclid 1 inh inhalation LARRY Y COPD 04/08/22 07/24/24 History 62.5 mcg-vilant 25 mcg inhalat.powder (Trelegy Ellipta) diclofenac sodium 1 % topical gel 2 g topical QID Arth ritis 04/09/22 07/24/24 History levothyroxine 100 mcg tablet 100 mcg PO DAILYDM HYPOTH YROIDISM 04/09/22 07/24/24 History tolterodine 4 mg capsule,extended 4 mg PO PM URINARY F REQUENCY 04/09/22 07/24/24 History release 24 hr gabapentin 300 mg capsule 300 mg PO TID NEUROPATHY #90 caps 04/11/22 07/24/24 Rx hydrocodone 5 mg-acetaminophen 325 1 tab PO Q6H PRN pa in #30 tabs 04/11/22 07/24/24 Rx mg tablet donepezil 5 mg tablet 5 mg PO DAILY 07/24/2407/24 History losartan 50 mg tablet 50 mg PO DAILY 07/24/2407/04 History sodium,potassium,mag sulfates 17.5 See Rx Instructions PO .COMPLEX 10/10/24 Rx gram-3.13 gram-1.6 gram oral soln #354 mL (Suprep Bowel Prep Kit) New Prescriptions to Start Prescriptions: Allergies Allergy/AdvReac Type Severity Reaction Status Date / Time Sulfa (Sulfonamide Allergy Unknown Hives Verified 10/23/24 06:54 Antibiotics) (SULFA (SULFONAMIDE ANTIBIOTICS)) Exam *Routine HEENT Exam Head: Present normocephalic Eye: Present EOMI and PERRL ENT: Present mucous membranes moist *Routine Neck Exam Neck: Present supple *Routine Respiratory Exam Respiratory: Present CTA bilaterally *Routine Cardiovascular Exam Cardiovascular: Present RRR *Routine Abdominal Exam Abdominal: Present soft and normoactive bowel sounds; Absent tenderness *Routine Rectal Exam Rectal:: deferred *Routine Genitalia Exam Genitalia:: deferred *Routine Extremities Exam Extremities: Absent cyanosis, clubbing or edema *Routine Skin Exam Skin: Present warm; Absent rash *Routine Neurological Exam Neurological: Present alert and oriented X3 Assessment and Plan *Assessment and plan (1) Change in bowel habits: Status: Acute Category: Medical Code(s): R19.4 - Change in bowel habit (2) Diarrhea: Status: Acute Category: Medical Code(s): R19.7 - Diarrhea, unspecified (3) Personal history of adenomatous and serrated colon polyps: Status: Acute Category: Medical Code(s): Z86.0101 - Personal history of adenomatous and serrated colon polyps (4) Mucus in stool: Status: Acute Category: Medical Code(s): R19.5 - Other fecal abnormalities Plan A/P: 1. Change in bowel habits with diarrhea and mucus in stool is the preprocedural diagnosis. The patient also has a personal history of adenomatous colon polyps. The patient will be anesthetized/sedated using MAC sedation. The patient has been seen and examined. Cardiac and lung assessment prior to the examination is stable. Proceed with planned diagnostic colonoscopy.
[2024-10-23 06:37] VITALS: BP 146/77; PULSE 68; RESP 18; TEMP 36.4; O2SAT 99; BMI 56.1
[2024-10-23] MEDS: LACTATED RINGERS 1000ML 1,000 ML 50 ML IV (06:54)
--- NOTE | 2024-10-23 07:02 | EXP.ANES.CKL ---
[facility] Disclaimer: The information contained in this section may have been updated after the patient was seen, as this information can be updated by other users. Medical History Glaucoma Chronic pain Emphysema lung Hypothyroid Lung cancer Cervical cancer COPD (chronic obstructive pulmonary disease) Surgical History Hx of cholecystectomy History of appendectomy History of bowel resection Family History Other AAA (abdominal aortic aneurysm) COPD (chronic obstructive pulmonary disease) Cancer Diabetes High cholesterol Hypertension Stroke Social History (Updated 10/23/24 @ 06:37 by Keisha Denson RN) Smoking Status: Never smoker alcohol intake: never counseling provided: none substance use type: denies use current occupational status: other Travel in the last 8 weeks?: None household members: family housing: house marital status: number of children: 2 number of grandchildren: 5 caffeine: No Have you lived/traveled outside [place] in past 30 days?: No Contact w/someone who lives/traveled outside [place] past 30 days?: No Exposure to someone with infectious disease in past 14 days?: No Do you have a fever (greater than 100.4 F or 38 C)?: No Have you tested positive for COVID-19?: No Exposed to someone with COVID-19 in past 14 days?: No Do you have a sore throat?: No Do you have a cough?: No Do you have any weakness?: No Are you experiencing any nausea/vomitting?: No Do you have any diarrhea?: No Are you experiencing any unusual bleeding?: No Do you have any muscle aches/pain?: No Do you have any abdominal pain?: No Are you experiencing loss of taste or smell?: No [facility] Anesthesia Checklist Patient Identification Patient Identification: Arm Band and Verbal (Name & ) Structural Data Admitted From: Home Planned Operative Procedure/s: colonoscopy Verified Documents: Surgical Consent NPO Status Verified Time NPO: 00:00 Chart Verification Results Verified: None Additional verifications Anesthesia Reactions: No Hx Blood Transfusions: No Blood Transfusion Reaction: No Airway Assessment Mallampati Score:: Class II C-Spine Mobility Assessed: Yes TMJ Mobility Assessed: Yes Dentition: Good Dentition Neurological Assessment Level of Consciousness: Awake, Alert and Appropriate Hx Seizures: No Numbness or tingling in extremities: No Anesthesia Plan Anesthesia Risk discussed: Yes Anesthesia Plan: Verified ASA Class: III Anesthesia Type: MAC
--- NOTE | 2024-10-23 07:22 | P.PCN_ITS ---
[facility] Procedure Note Date: 10/23/24 Time: 07:52 Procedure Note:: Sigmoidoscopy (attempted/failed colonoscopy) procedure Report: Sigmoidoscopy with snare cautery polypectomy Endoscopist: Alhaji Patel II, MD Referring physician: Fernando Fernandez M.D. Date of Procedure: October 23, 2024 Equipment: Olympus [id number] adult colonoscope Sedation: MAC sedation Indication: Mrs. Best is a 74-year-old female who is here for diagnostic colonoscopy secondary to a change in bowel habits. She reports looser stools with diarrhea that occur 3 or 4 times daily. She also has mucus in her stool at times. The patient did have small bowel obstruction in 2015 and had small bowel resection (Rigo Rao M.D.). Her last colonoscopy was with mt in 2017 and she had 3 polyps (tubular adenomas x 3 which were removed. 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 The patient did have an attempted colonoscopy/sigmoidoscopy with Rigo Rao M.D. in August 2017 and had the benign stricture at 20 cm. The patient reports no rectal bleeding or weight loss. She reports no abdominal pain. Her maternal grandfather had colon cancer. Procedure: Prior to the procedure, a history and physical exam was performed, and patient's medications and allergies were reviewed. The risks, benefits and alternatives of the sedation and procedure were discussed with the patient. All questions were answered and informed consent was obtained. The patient was brought to the procedure room. Patient identification and proposed procedure were verified by the physician and the nurse. The patient was placed in a left lateral decubitus position and the scope was passed under direct vision. Throughout the procedure, the patient's blood pressure, pulse, and oxygen saturations were monitored continuously. The patient tolerated the procedure well. Findings: On digital rectal examination there were external hemorrhoidal tags. There was normal rectal tone. The scope was inserted through the anal canal to the rectum and advanced to the mid/distal sigmoid colon. There was some stricturing and fibrosis of the colon in this region. With the adult colonoscope, this stenosis could not easily be traversed and did feel there was some risk and advancing further. After several attempts, further advancement of the scope was aborted and the scope was withdrawn. The proximal colon was not seen. There are a few diverticuli in this sigmoid region. Within the rectum there was a 14-15 mm sessile polyp that was removed via snare cautery. There were grade 1 internal hemorrhoids. Impression: 1. 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 Rectal polyp (14 to 15 mm) 3. Left-sided diverticulosis Plan: I was unable to advance beyond the sigmoid colon. I do feel that attempts to traverse this fibrotic area with the colonoscope may be risky and I will discuss with patient and family. I am not convinced that she will require any surgical treatment since she is not presenting with obstruction. We will discuss medical treatment options. I would consider barium enema or CT colonography.
[2024-10-23 07:45] VITALS: BP 109/77; PULSE 70; RESP 16; TEMP 36.1; O2SAT 94
[2024-10-23 07:55] VITALS: BP 100/44; PULSE 72; RESP 16; O2SAT 97
[2024-10-23 08:05] VITALS: BP 99/55; PULSE 70; RESP 18; O2SAT 98
[2024-10-23 08:15] VITALS: BP 123/68; PULSE 71; RESP 16; O2SAT 98
== END 2024-10-23 08:24 | disposition home or self-care (01) ==
PROVIDERS: PCP Internal Medicine Adolescent Medicine; Visit Provider Internal Medicine Gastroenterology
PROC: 0DJD8ZZ Inspection of Lower Intestinal Tract, Via Natural or Artificial Opening Endoscopic (ICD-10-PCS; CPT 45378; principal; 2024-10-23 07:30)
DX: K56.699 Other intestinal obstruction unspecified as to partial versus complete obstruction (principal); D12.8 Benign neoplasm of rectum; K57.30 Diverticulosis of large intestine without perforation or abscess without bleeding; Z86.0101 Personal history of adenomatous and serrated colon polyps; J44.9 Chronic obstructive pulmonary disease, unspecified; J43.9 Emphysema, unspecified; E03.9 Hypothyroidism, unspecified; F17.210 Nicotine dependence, cigarettes, uncomplicated; Z85.41 Personal history of malignant neoplasm of cervix uteri; Z85.118 Personal history of other malignant neoplasm of bronchus and lung; Z88.2 Allergy status to sulfonamides
CPT/HCPCS: 45338; J2003; J2704; J7120